=== PATIENT | male | born 1995 | race Caucasian/White ===

== ENCOUNTER 2017-05-06 21:22 | Emergency (ER) | payer MEDICAID ==
[2017-05-06 22:20] VITALS: RESP 20; TEMP 98.6; BMI 21.6
[2017-05-06] MEDS ORDERED: Sodium Chloride 0.9% 1,000 ML IV STA (22:48)
--- NOTE | 2017-05-06 22:48 | ED PDOC ---
Arrival/HPI <Wayne Medel - Last Filed: 05/07/17 00:07> - General Historian: Parent (mother) - History of Present Illness Time/Duration: Prior to Arrival Context: Home <Ivan Gar - Last Filed: 05/13/17 22:35> - General Chief Complaint: Medical Clearance Time Seen by Provider: 05/06/17 22:44 - History of Present Illness Narrative History of Present Illness (Text): 05/06/17 22:45 This 21 yo male presents to this ED came with mother c/o jaw lock x 2 hours. Mother admits that patient takes psychiatric medication. Denies other complains. (Ivan Gar) Past Medical History - Provider Review Nursing Documentation Reviewed: Yes - Past History Past History: No Previous - Infectious Disease Hx of Infectious Diseases: None - Tetanus Immunization Tetanus Immunization: Up to Date - Cardiac Hx Cardiac Disorders: No Hx Hypertension: No - Pulmonary Hx Tuberculosis: No - Neurological HX Cerebrovascular Accident: No Hx Seizures: No - Hematological/Oncological Hx Cancer: No - Genitourinary/Gynecological Hx Sexually Transmitted Diseases: No - Psychiatric Hx Anxiety: Yes Hx Emotional Abuse: No Hx Physical Abuse: No Hx Schizophrenia: Yes Hx Substance Use: Yes - Past Surgical History Past Surgical History: No Previous - Anesthesia Hx Anesthesia: No Hx Anesthesia Reactions: No Hx Malignant Hyperthermia: No - Suicidal Assessment Feels Threatened In Home Enviroment: No <Ivan Gar - Last Filed: 05/13/17 22:35> Family/Social History - Physician Review Nursing Documentation Reviewed: Yes Family/Social History: No Known Family HX Smoking Status: Smoker Currrent Status Unknown Hx Alcohol Use: Yes Hx Substance Use: Yes Substance used: MARIJUANA Hx Substance Use Treatment: No <Ivan Gar - Last Filed: 05/13/17 22:35> Allergies/Home Meds <Wayne Medel - Last Filed: 05/07/17 00:07> <Ivan Gar - Last Filed: 05/13/17 22:35> Allergies/Adverse Reactions: Allergies No Known Allergies Allergy (Verified 05/13/16 21:03) Home Medications: Home Meds Medication Instructions Recorded Confirmed ALPRAZolam [Xanax] 1 mg PO 05/06/17 Review of Systems - Review of Systems Systems not reviewed;Unavailable: Other (Mother provided with information) Constitutional: Normal. absent: Fatigue, Weight Change, Fevers Eyes: Normal ENT: Normal Respiratory: Normal. absent: SOB, Cough Cardiovascular: Normal. absent: Chest Pain Gastrointestinal: Normal. absent: Abdominal Pain, Nausea, Vomiting Genitourinary Male: Normal Musculoskeletal: Other (Muscle of jaw contraction) Skin: Normal Neurological: Normal Endocrine: Normal Hemo/Lymphatic: Normal Psychiatric: Normal <Ivan Gar P - Last Filed: 05/13/17 22:35> Physical Exam Temperature: Afebrile Blood Pressure: Normal Pulse: Regular Respiratory Rate: Normal Appearance: Positive for: Well-Appearing, Non-Toxic, Comfortable Pain Distress: None Mental Status: Positive for: Alert and Oriented X 3 - Systems Exam Head: Present: Atraumatic, Normocephalic Pupils: Present: PERRL Extroacular Muscles: Present: EOMI Conjunctiva: Present: Normal Mouth: Present: Moist Mucous Membranes, Normal Lips, Normal Tounge, Normal Teeth , Other (Jaw muscle contraction). No: Drooling, Trismus Neck: Present: Normal Range of Motion Respiratory/Chest: Present: Clear to Auscultation, Good Air Exchange. No: Respiratory Distress, Accessory Muscle Use Cardiovascular: Present: Regular Rate and Rhythm, Normal S1, S2. No: Murmurs Abdomen: Present: Normal Bowel Sounds. No: Tenderness, Distention, Peritoneal Signs Back: Present: Normal Inspection Upper Extremity: Present: Normal Inspection, Normal ROM, NORMAL PULSES, Capillary Refill < 2s. No: Cyanosis, Edema Lower Extremity: Present: Normal Inspection, NORMAL PULSES, Normal ROM, Neurovascularly Intact, Capillary Refill < 2 s. No: Edema, CALF TENDERNESS Neurological: Present: GCS=15, CN II-XII Intact, Speech Normal Skin: Present: Warm, Dry, Normal Color. No: Rashes Psychiatric: Present: Alert, Oriented x 3, Normal Insight, Normal Concentration <Ivan Gar P - Last Filed: 05/13/17 22:35> Vital Signs Temp Pulse Resp BP Pulse Ox 05/07/17 00:13 98 H 20 127/64 100 05/06/17 22:19 98.6 F 115 H 20 120/55 L 98 05/06/17 22:13 98.6 F 115 H 20 120/55 L 98 Medical Decision Making <Wayne Medel Last Filed: 05/07/17 00:07> Re-evaluation Time: 01:19 Reassessment Condition: Re-examined, Improved - Lab Interpretations I have reviewed the lab results: Yes Interpretation: No clinic. lab abnormalty <Ivan Gar - Last Filed: 05/13/17 22:35> ED Course and Treatment: 05/07/17 01:17 Patient stated symptoms has improved. Re-evaluation. Patient feels better. Discussed results and plan with patient and his mother who expresses understanding. All questions answered and there is agreement with the plan to discharge home with instructions. Patient stable for discharge. Return if symptoms persist or worsen. (Ivan Gar) - Lab Interpretations Lab Results: 05/06/17 23:37 05/06/17 23:37 Lab Results 05/07/17 00:31: Urine Opiates Screen Negative, Urine Methadone Screen Negative, Ur Barbiturates Screen Negative, Ur Phencyclidine Scrn Negative, Ur Amphetamines Screen Negative, U Benzodiazepines Scrn Positive H, U Oth Cocaine Metabols Negative, U Cannabinoids Screen Positive H 05/07/17 00:31: Urine Color Yellow, Urine Appearance Clear, Urine pH 7.0, Ur Specific [place] 1.010, Urine Protein Negative, Urine Glucose (UA) Negative, Urine Ketones Negative, Urine Blood Negative, Urine Nitrate Negative, Urine Bilirubin Negative, Urine Urobilinogen 0.2, Ur Leukocyte Esterase Negative 05/06/17 23:37: Alcohol, Quantitative < 10 05/06/17 23:37: Salicylates < 1 L, Acetaminophen < 10.0 L 05/06/17 23:37: Sodium 137, Potassium 3.9, Chloride 101, Carbon Dioxide 25, Anion Gap 15, BUN 15, Creatinine 1.0, Est GFR ( Amer) > 60, Est GFR (Non- Af Amer) > 60, Random Glucose 101, Calcium 9.8, Total Bilirubin 0.4, AST 39, ALT 26, Alkaline Phosphatase 98, Total Protein 7.5, Albumin 4.5, Globulin 3.0, Albumin/Globulin Ratio 1.5 05/06/17 23:37: WBC 9.6, RBC 4.22, Hgb 13.1 L, Hct 37.9 L, MCV 89.8, MCH 31.0, MCHC 34.6, RDW 13.2, Plt Count 251, MPV 8.7, Gran % 84.3 H, Lymph % (Auto) 10.9 L, [place] % (Auto) 3.8, Eos % (Auto) 0.7 L, Baso % (Auto) 0.3, Gran # 8.06 H, Lymph # 1.0 L, [place] # 0.4, Eos # 0.1, Baso # 0.03 - RAD Interpretation Radiology Orders: 05/06/17 23:04 CHEST PORTABLE [RAD] Stat - Medication Orders Current Medication Orders: Discontinued Medications Diphenhydramine HCl (Benadryl) 50 mg IVP STAT STA Stop: 05/06/17 23:09 Last Admin: 05/06/17 23:39 Dose: 50 mg Sodium Chloride (Sodium Chloride 0.9%) 1,000 mls @ 999 mls/hr IV .Q1H1M STA Stop: 05/06/17 23:48 Last Admin: 05/06/17 23:40 Dose: 999 mls/hr - PA / [employer] / Resident Statement / has reviewed & agrees with the documentation as recorded. <Wayne Medel - Last Filed: 05/07/17 00:07> Disposition/Present on Arrival <Wayne Medel - Last Filed: 05/07/17 00:07> - Present on Arrival Any Indicators Present on Arrival: No History of DVT/PE: No History of Uncontrolled Diabetes: No Urinary Catheter: No History of Decub. Ulcer: No History Surgical Site Infection Following: None - Disposition Have Diagnosis and Disposition been Completed?: Yes Disposition Time: :19 Patient Plan: Discharge <Ivan Gar - Last Filed: 05/13/17 22:35> - Disposition Diagnosis: Acute dystonic reaction due to drugs Disposition: HOME/ ROUTINE Condition: GOOD Additional Instructions: Call private psychiatrist for further evaluation of symptoms. Also call private doctor for revaluation. Returnto emergency if symptoms returns. take medication as instructed Prescriptions: DiphenhydrAMINE [Benadryl] 50 mg PO Q8H PRN #30 cap PRN Reason: Muscle Spasm Referrals: Lou Aranda MD [Primary Care Provider] - Follow up with primary
[2017-05-06] MEDS ORDERED: DiphenhydrAMINE 50 mg/ml Inj IVP STA (23:08)
[2017-05-07 00:01] LABS: BASO # 0.03 K/mm3 (0.0-2.0); BASO % 0.3 % (0.0-3.0); EOS # 0.1 (0.0-0.7); EOS % 0.7 % (1.5-5.0); GRAN # 8.06 (1.4-6.5); GRAN % 84.3 % (50.0-68.0); HEMOGLOBIN 13.1 gm/dL (14.0-18.0); LYMPH % 10.9 % (22.0-35.0); MEAN CELL VOLUME 89.8 fL (80.0-105.0); MEAN CORPUSCULAR HGB CONC 34.6 g/dl (31.0-37.0); MEAN PLATELET VOLUME 8.7 fl (7.0-11.0); MONO # 0.4 (0.1-0.6); MONO % 3.8 % (1.0-6.0); PLATELET COUNT 251 10^3/uL (120.0-450.0); RBC 4.22 10^6/uL (3.5-6.1); RED CELL DISTRIBUTION WIDTH 13.2 % (11.5-14.5); WHITE BLOOD COUNT 9.6 10^3/ul (4.5-11.0)
[2017-05-07 00:08] LABS: SALICYLATE < 1 mg/dL (2.0-20.0)
[2017-05-07 00:15] VITALS: BP 127/64; PULSE 98; O2SAT 100
[2017-05-07 00:21] LABS: ACETAMINOPHEN < 10.0 ug/ml (10.0-20.0); ALB/GLOB RATIO 1.5 (1.1-1.8); ALBUMIN 4.5 g/dL (3.0-4.8); ALT/SGPT 26 U/L (7-56); AST/SGOT 39 U/L (15-59); BLOOD UREA NITROGEN 15 mg/dL (7-21); CALCIUM 9.8 mg/dL (8.4-10.5); GFR AFRICAN-AMERICAN > 60; GFR NON-AFRICAN AMERICAN > 60
[2017-05-07 00:55] LABS: URINE BILIRUBIN NEGATIVE (NEGATIVE); URINE BLOOD NEGATIVE (NEGATIVE); URINE GLUCOSE (UA) NEGATIVE (NEGATIVE); URINE LEUKOCYTE ESTERASE NEGATIVE Leu/uL (NEGATIVE); URINE NITRATE NEGATIVE (NEGATIVE); URINE PROTEIN NEGATIVE mg/dL (<30 mg/dL); URINE UROBILINOGEN 0.2 E.U./dL (<1 E.U./dL)
[2017-05-07 01:02] LABS: URINE APPEARANCE CLEAR (CLEAR); URINE COLOR YELLOW (YELLOW)
[2017-05-07 01:10] LABS: BARBITURATES, UR NEGATIVE (NEGATIVE); BENZODIAZEPINES, UR POSITIVE (NEGATIVE); OPIATES, UR NEGATIVE (NEGATIVE); PHENCYCLIDINE, UR NEGATIVE (NEGATIVE)
--- NOTE | 2017-05-07 07:34 | RAD ---
HISTORY: tachycardia COMPARISON: 05/14/2016 FINDINGS: LUNGS: No active pulmonary disease. PLEURA: No significant pleural effusion identified, no pneumothorax apparent. CARDIOVASCULAR: Normal. OSSEOUS STRUCTURES: No significant abnormalities. VISUALIZED UPPER ABDOMEN: Normal. OTHER FINDINGS: None. IMPRESSION: No active disease.
== END 2017-05-07 01:37 | disposition home or self-care (01) ==
LOC: ED 21:22
DX: G24.02 Drug induced acute dystonia (principal); T50.905A Adverse effect of unspecified drugs, medicaments and biological substances, initial encounter
CPT/HCPCS: 71010; 80053; 80320; 80324; 80329; 80345; 80346; 80349; 80353; 80358; 80361; 81003; 83992; 85025; 96374; 99282; J1200; J7040

== ENCOUNTER 2017-09-05 03:20 | Inpatient (IN) | payer MEDICARE, MEDICAID ==
[2017-09-05 03:26] VITALS: BMI 19.8
--- NOTE | 2017-09-05 03:50 | ED PDOC ---
Arrival/HPI - General Chief Complaint: Alcohol Ingestion Time Seen by Provider: 09/05/17 03:43 - History of Present Illness Narrative History of Present Illness (Text): 22 y/o M brought to ED by [place] [employer] for psychiatric evaluation. Patient states he was drinking today, hanging out when the police arrived and treated him very aggressively, handcuffed him, and brought him here. He states that he thinks someone in his apartment building called the police to snitch on him due to the drinking. He states he drank alcohol and took Xanax today. He denies SI today or HI. He states that taking drugs and being high helps him to avoid feeling suicidal. He states he has been hearing voices for 2 or 3 years that tell him to hurt himself or others. As per [place] [employer], patient was behaving erratically, screaming and then being despondent in cycles. He apparently had been rejected by a neighbor girl and writing satanic verses on that family's door. Denies fever, chest pain, vomiting. Past Medical History - Provider Review Nursing Documentation Reviewed: Yes - Past History Past History: No Previous - Infectious Disease Hx of Infectious Diseases: None - Tetanus Immunization Tetanus Immunization: Up to Date - Cardiac Hx Cardiac Disorders: No Hx Hypertension: No - Pulmonary Hx Respiratory Disorders: No Hx Tuberculosis: No - Neurological HX Cerebrovascular Accident: No Hx Seizures: No - HEENT Hx HEENT Disorder: No - Renal Hx Renal Disorder: No - Endocrine/Metabolic Hx Endocrine Disorders: No - Hematological/Oncological Hx Cancer: No - Musculoskeletal/Rheumatological Hx Musculoskeletal Disorders: No - Gastrointestinal Hx Gastrointestinal Disorders: No - Genitourinary/Gynecological Hx Genitourinary Disorders: No Hx Sexually Transmitted Diseases: No - Psychiatric Hx Anxiety: Yes Hx Emotional Abuse: No Hx Physical Abuse: No Hx Schizophrenia: Yes Hx Substance Use: Yes (xanax) - Past Surgical History Past Surgical History: No Previous - Anesthesia Hx Anesthesia: No Hx Anesthesia Reactions: No Hx Malignant Hyperthermia: No - Suicidal Assessment Feels Threatened In Home Enviroment: No Family/Social History - Physician Review Nursing Documentation Reviewed: Yes Family/Social History: No Known Family HX Smoking Status: Light Smoker < 10 Cigarettes Daily Hx Alcohol Use: Yes Frequency of alcohol use: Socially Hx Substance Use: Yes (xanax) Substance used: MARIJUANA Hx Substance Use Treatment: No Allergies/Home Meds Allergies/Adverse Reactions: Allergies No Known Allergies Allergy (Verified 09/05/17 03:26) Home Medications: Home Meds Medication Instructions Recorded Confirmed ALPRAZolam [Xanax] 1 mg PO BID 05/06/17 09/05/17 Review of Systems - Review of Systems Constitutional: absent: Fevers Cardiovascular: absent: Chest Pain Physical Exam - Physical Exam Narrative Physical Exam (Text): Constitutional: No acute distress. Head: Normocephalic. Atraumatic. Eyes: PERRL. ENT: Moist mucous membranes. Neck: Supple. Cardiovascular: Regular rate. Chest: No tenderness. Respiratory: Clear to auscultation bilaterally. GI: Soft. Nontender. Nondistended. Back: No CVA tenderness. Musculoskeletal: No tenderness or swelling of extremities. Skin: No rash. Neurologic: Alert, no focal deficit. Vital Signs Temp Pulse Resp BP Pulse Ox 09/05/17 03:23 98 F 104 H 16 131/77 100 Medical Decision Making ED Course and Treatment: During history, patient would look off in various directions or touch various parts of his body. At one point, he lifted his gown and lowered his underwear and was touching himself in the groin. Patient with bizarre behavior. Will have evaluated by PES after medical clearance. 09/05/17 04:45 CXR Impression: As read by me, no acute disease. Evaluated by PES, discussed with Dr. Jesus, recommending [facility] screening. Will sign out to ED day team at change of shift pending [facility] screener. - Lab Interpretations Lab Results: 09/05/17 03:42 09/05/17 03:42 Lab Results 09/05/17 04:45: Urine Opiates Screen Negative, Urine Methadone Screen Negative, Ur Barbiturates Screen Negative, Ur Phencyclidine Scrn Negative, Ur Amphetamines Screen Negative, U Benzodiazepines Scrn Positive H, U Oth Cocaine Metabols Negative, U Cannabinoids Screen Positive H 09/05/17 04:45: Urine Color Light yellow, Urine Appearance Clear, Urine pH 6.0, Ur Specific [place] 1.010, Urine Protein Negative, Urine Glucose (UA) Negative, Urine Ketones Negative, Urine Blood Negative, Urine Nitrate Negative, Urine Bilirubin Negative, Urine Urobilinogen 0.2, Ur Leukocyte Esterase Negative 09/05/17 03:42: Alcohol, Quantitative 215 H 09/05/17 03:42: Salicylates < 1 L, Acetaminophen < 10.0 L 09/05/17 03:42: Sodium 148, Potassium 3.7, Chloride 105, Carbon Dioxide 32, Anion Gap 15, BUN 12, Creatinine 1.0, Est GFR ( Amer) > 60, Est GFR (Non- Af Amer) > 60, Random Glucose 103, Calcium 9.9, Total Bilirubin 0.6, AST 33, ALT 35, Alkaline Phosphatase 93, Total Protein 8.3, Albumin 5.0 H, Globulin 3.3 , Albumin/Globulin Ratio 1.5 09/05/17 03:42: WBC 5.7 D, RBC 4.63, Hgb 14.8, Hct 42.4, MCV 91.6, MCH 32.0, MCHC 34.9, RDW 12.9, Plt Count 284, MPV 8.9, Gran % 65.4, Lymph % (Auto) 26.4, [place] % (Auto) 4.8, Eos % (Auto) 2.3, Baso % (Auto) 1.1, Gran # 3.70, Lymph # 1.5 , [place] # 0.3, Eos # 0.1, Baso # 0.06 - RAD Interpretation Radiology Orders: 09/05/17 03:45 CHEST ONE VIEW [RAD] Stat Disposition/Present on Arrival - Present on Arrival Any Indicators Present on Arrival: No History of DVT/PE: No History of Uncontrolled Diabetes: No Urinary Catheter: No History of Decub. Ulcer: No History Surgical Site Infection Following: None - Disposition Have Diagnosis and Disposition been Completed?: No Diagnosis: Alcohol intoxication Disposition Time: 05:29 Condition: STABLE Forms: [employer] (Egyptian)
[2017-09-05 04:33] LABS: ALB/GLOB RATIO 1.5 (1.1-1.8); ALKALINE PHOSPHATASE 93 U/L (38-126); ALT/SGPT 35 U/L (7-56); AST/SGOT 33 U/L (17-59); BILIRUBIN,TOTAL 0.6 mg/dL (0.2-1.3); BLOOD UREA NITROGEN 12 mg/dL (7-21); CALCIUM 9.9 mg/dL (8.4-10.5); CARBON DIOXIDE 32 mmol/L (21-33); CHLORIDE 105 mmol/L (98-107); GFR AFRICAN-AMERICAN > 60; GLUCOSE,RANDOM 103 mg/dL (70-110); POTASSIUM 3.7 mmol/L (3.6-5.0); SODIUM 148 mmol/L (132-148); TOTAL PROTEIN 8.3 g/dL (5.8-8.3)
[2017-09-05 04:47] LABS: BASO % 1.1 % (0.0-3.0); EOS % 2.3 % (1.5-5.0); GRAN % 65.4 % (50.0-68.0); HEMATOCRIT 42.4 % (42.0-52.0); LYMPH % 26.4 % (22.0-35.0); MEAN CELL VOLUME 91.6 fl (80.0-105.0); MEAN CORPUSCULAR HGB CONC 34.9 g/dl (31.0-37.0); MEAN PLATELET VOLUME 8.9 fl (7.0-11.0); MONO % 4.8 % (1.0-6.0); RED CELL DISTRIBUTION WIDTH 12.9 % (11.5-14.5); WHITE BLOOD COUNT 5.7 10^3/ul (4.5-11.0)
[2017-09-05 04:48] LABS: BASO # 0.06 K/mm3 (0.0-2.0); EOS # 0.1 (0.0-0.7); GRAN # 3.7 (1.4-6.5); LYMPH # 1.5 (1.2-3.4); MONO # 0.3 (0.1-0.6)
[2017-09-05 04:57] LABS: URINE BILIRUBIN NEGATIVE (NEGATIVE); URINE BLOOD NEGATIVE (NEGATIVE); URINE GLUCOSE (UA) NEGATIVE (NEGATIVE); URINE KETONE NEGATIVE (NEGATIVE); URINE LEUKOCYTE ESTERASE NEGATIVE Leu/uL (NEGATIVE); URINE PROTEIN NEGATIVE mg/dL (<30 mg/dL); URINE UROBILINOGEN 0.2 E.U./dL (<1 E.U./dL)
[2017-09-05 04:58] LABS: URINE APPEARANCE CLEAR (CLEAR); URINE COLOR LIGHT YELLOW (YELLOW)
--- NOTE | 2017-09-05 08:43 | RAD ---
PROCEDURE: CHEST RADIOGRAPH, 1 VIEW HISTORY: psych COMPARISON: Comparison is made to 05/06/2017 FINDINGS: LUNGS: No evidence of new infiltrate or consolidation in the lungs. PLEURA: No pneumothorax or pleural fluid seen. CARDIOVASCULAR: Normal. OSSEOUS STRUCTURES: No significant abnormalities. VISUALIZED UPPER ABDOMEN: Normal. OTHER FINDINGS: None. IMPRESSION: No active disease.
--- NOTE | 2017-09-05 10:11 | CARD ---
APPROVED REPORT EKG Measurement Heart [id number] <Conclusion> Normal sinus rhythm Normal ECG
--- NOTE | 2017-09-05 15:28 | PCM.BM ---
<Giuseppe Agustin - Last Filed: 09/05/17 15:25> Treatment Plan Problems - Problems identified on initial assessmt altered thought process Date Initiated: 09/05/17 Time Initiated: 15:26 Assessment reference: AMARJIT MOODY high risk for injury Date Initiated: 09/05/17 Time Initiated: 15:27 Assessment reference: AMARJIT MOODY ineffective impulse control Date Initiated: 09/05/17 Time Initiated: 15:27 Assessment reference: AMARJIT MOODY Treatment assets and liabiliti Patient Assests: physically healthy, negotiates basic needs Patient Liabilities: poor support system, relationship conflicts, substance abuse - Milieu Protocol Maintain good personal hygiene: daily Encourage regular showers, daily Remind patient to perform daily oral care, daily Assist patient to perform ADL's Maintain personal safety: daily Educate patient to report safety concerns to staff, daily Monitor environment for contraband/sharps Medication safety: Monitor for expected outcome, potential side effects: daily, Assess barriers to learning: daily, Assess readiness for medication education: daily Discharge/Continuing Care - Education Needs Education Needs: Patient Medication, Patient Diagnosis/Disease Process, Patient Coping Skills, Patient Anger Management skills, Patient Community resources, Patient Activities of Daily Living, Patient Health Practices/Safety, Patient Personal Hygiene/Grooming, Patient Aftercare Safety Plan - Discharge Discharge Criteria: Free of Suicidal thoughts, Free of Homicidal thoughts, Free of paranoid thoughts, Free of agitation, Normal sleep pattern <Nancy Pedersen - Last Filed: 09/07/17 16:06> - Diagnosis (1) Polysubstance abuse Status: Acute Interventions: 09/07/17 16:07 Monitoring withdrawal symptoms Medical detoxification Pharmacotherapy for alcohol/benzos/opioid dependence Maintaining sobriety Relapse prevention Possible rehabilitation Motivational interviewing 12-step programs: AA meetings (2) Schizophrenia Status: Acute Interventions: 09/07/17 16:07 Psychoeducation/psychotherapy Psychopharmacology/adjustment of medications as needed/ monitoring possible side effects Evaluate pt on daily basis Compliance with medications and follow up appointments Long acting medication if pt is noncompliant with pill form Suicide and homicide risk assessment and prevention, coping strategies, safety plan Relapse prevention Reduction of symptoms Improve functional status Possible assertive community treatment Cognitive behavioral therapy Family involvement Possible social skill training as outpatient <Gail Ga Y - Last Filed: 09/07/17 16:33>
[2017-09-05] MEDS ORDERED: Promethazine DM 6.25 mg-15 mg/5 ml Syrup PO PRN (18:18)
[2017-09-06 07:37] LABS: CHOLESTEROL 140 mg/dL (130-200); GLUCOSE,FASTING 94 mg/dL (65-110)
[2017-09-06] MEDS: Multivitamin Therapeutic Tab PO SCH (07:52)
[2017-09-06] MEDS: Fluticasone Nasal 50 mcg/Spray NS SCH (07:52)
[2017-09-06 07:55] LABS: FREE T4 1.14 ng/dL (0.78-2.19)
[2017-09-06 08:08] LABS: THYROID STIMULATING HORMONE 6.13 mIU/mL (0.46-4.68)
--- NOTE | 2017-09-06 10:15 | PCM.PSYCH ---
Initial Psychiatric Evaluation - Initial Psychiatric Evaluation Type of Admission: Voluntary Legal Status: Capacity History of Present Illness and Precipitating Events: Patient is a single 22 year old male with history of depression, anxiety and psychotic symptoms who was brought to the ED by [place] [employer] for psychiatric evaluation. Per ER report, patient stated that he was drinking, hanging out when the police arrived and treated him very aggressively, handcuffed him, and brought him to the ER. He stated that he thinks someone in his apartment building called the police to snitch on him due to the drinking. Per ER report, patient stated that he has been hearing voices for 2 or 3 years that tell him to hurt himself or others. As per [place] [employer], patient was behaving erratically, screaming and then being despondent in cycles. He apparently had been rejected by a neighbor girl and writing satanic verses on that family's door. Nursing notes indicate that patient presented as psychotic and delusional. Patient reported that he wanted to be addressed as "Oliver Hinkle" because he didn't like his current name. His frustration tolerance is poor and patient is prone to tantrums when needs aren't met immediately. I met with patient at bedside this morning. He appears well groomed and oriented to month, location and year. Patient is guarded and minimizes events leading to current presentation on the psychiatric unit. Reports that he drinks excessively, most recently he was drinking two bottles of vodka prior to admission and drinks at least a bottle of wine daily. He reports history of withdrawal seizures as well as DTs in the past. Despite this history patient was still reluctant to admit that he is addicted to alcohol. Patient also smokes marijuana. Patient is unable to describe rational reason for his behaviors prior to admission. Again, he minimizes the symptoms and reports that he is "feeling good". He denies depression or hallucinations. Though he denies paranoia, he appears internally preoccupied and also seems to be responding to internal stimuli (though he does seem to hide it). Patient told nursing about family stressors including his mother "screaming all the time at home". Nursing also noted that patient is preoccupied with a female patient in the unit and attempted to go into female patients room. PSYCHIATRIC HISTORY Patient denies any prior psychiatric hospitalizations. He denies any history of suicide attempts. He reports that he did see a psychiatrist at [facility] in March however does not recall any medications prescribed to him except for Xanax SOCIAL HISTORY Patient was born and raised in [place]. He's single. He has no children. He went up to freshman year of high school and then quit. He's unemployed. He presently drinks a bottle of wine a bottle daily though recently finished two bottles of vodka [place]. Reports history of withdrawal seizures and DTs. Patient smokes a pack of cigarettes a day however defers on nicotine patch when this provider offers it to him. He was counseled about the morbidity and mortality risks of continued tobacco, alcohol and marijuana use. . Current Medications: Active Medications Generic Name Dose Route Start Last Admin Trade Name Freq PRN Reason Stop Dose Admin Fluticasone Propionate 1 actuation 09/06/17 08:00 Flonase NS DAILY LESLIE Folic Acid 1 mg 09/06/17 08:00 Folic Acid PO DAILY LESLIE Lorazepam 1 mg 09/05/17 12:00 09/05/17 17:25 Ativan PO 1 mg Q6 LESLIE Administration Protocol Multivitamins 1 tab 09/06/17 08:00 Thera Tab PO 0800 LESLIE Promethazine HCl/Dextromethorphan 5 ml 09/05/17 18:18 Phenergan Dm Syrup PO Q6H PRN Cough Risperidone 1 mg 09/05/17 22:00 09/05/17 21:42 Risperdal Tab PO 1 mg AMHS LESLIE Administration Protocol Thiamine HCl 100 mg 09/06/17 08:00 Vitamin B1 Tab PO DAILY LESLIE Zaleplon 10 mg 09/05/17 11:33 09/05/17 21:44 Sonata PO 10 mg HS PRN Administration Insomnia Past Psychiatric History - Past Psychiatric History Pertinent Medical Hx (Current Medical&Sleep Prob, Allergies): Allergies Allergy/AdvReac Type Severity Reaction Status Date / Time No Known Allergies Allergy Verified 09/05/17 03:26 ALPRAZolam [Xanax] 1 mg PO BID 05/06/17 Mental Status Examination - Affect Affect: Constricted, Flat - Motor Activity Motor Activity: Calm - Reliability in Providing Information Reliability in Providing Information: Poor, due to alteration in thoughts - Speech Speech: Disorganized - Mood Mood: Neutral - Formal Thought Process Formal Thought Process: Hallucinations (Appears preoccupied and responding to internal stimuli), Paranoia, Loosening of associations - Obsessions/Compulsions Obsessions: No Compulsions: No - Cognitive Functions Orientation: Person, Place Sensorium: Alert Estimate of Intelligence: Below average Judgement: Imparied, as evidence by: Poor judgement, Imparied, as evidence by: Lack of insight into illness - Risk Risk: Diminished functioning DSM 5 DX - DSM 5 DSM 5 Diagnosis: Psychotic Disorder NOS Mood Disorder NOS Alcohol Use Disorder, Severe r/o SIMD r/o SIPD r/o Schizophrenia - Recommended/Plan of Treatment Treatment Recommendations and Plan of Treatment: * grp, milieu and supportive tx * Risperdal 1 mg AM & HS for disorganization, hx of hallucinations and to help with mood control * Ativan 1 mg q6 for alcohol withdrawal and to help with mood control * Sonata 10 mg HS prn: insomnia * Awaiting medical f/u * Vitals reviewed and noted below: Selected Entries 09/05/17 09/05/17 09/06/17 07:15 16:00 07:00 Temperature 97.9 F 97.5 F L Pulse Rate 86 104 H 117 H Respiratory 18 17 Rate Blood Pressure 114/55 L 120/58 L 137/56 L O2 Sat by Pulse 96 Oximetry ER LABS AND STUDIES 09/05/17 04:45: Urine Opiates Screen Negative, Urine Methadone Screen Negative, Ur Barbiturates Screen Negative, Ur Phencyclidine Scrn Negative, Ur Amphetamines Screen Negative, U Benzodiazepines Scrn Positive H, U Oth Cocaine Metabols Negative, U Cannabinoids Screen Positive H 09/05/17 04:45: Urine Color Light yellow, Urine Appearance Clear, Urine pH 6.0, Ur Specific [place] 1.010, Urine Protein Negative, Urine Glucose (UA) Negative, Urine Ketones Negative, Urine Blood Negative, Urine Nitrate Negative, Urine Bilirubin Negative, Urine Urobilinogen 0.2, Ur Leukocyte Esterase Negative 09/05/17 03:42: Alcohol, Quantitative 215 H 09/05/17 03:42: Salicylates < 1 L, Acetaminophen < 10.0 L 09/05/17 03:42: Sodium 148, Potassium 3.7, Chloride 105, Carbon Dioxide 32, Anion Gap 15, BUN 12, Creatinine 1.0, Est GFR ( Amer) > 60, Est GFR (Non- Af Amer) > 60, Random Glucose 103, Calcium 9.9, Total Bilirubin 0.6, AST 33, ALT 35, Alkaline Phosphatase 93, Total Protein 8.3, Albumin 5.0 H, Globulin 3.3 , Albumin/Globulin Ratio 1.5 09/05/17 03:42: WBC 5.7 D, RBC 4.63, Hgb 14.8, Hct 42.4, MCV 91.6, MCH 32.0, MCHC 34.9, RDW 12.9, Plt Count 284, MPV 8.9, Gran % 65.4, Lymph % (Auto) 26.4, [place] % (Auto) 4.8, Eos % (Auto) 2.3, Baso % (Auto) 1.1, Gran # 3.70, Lymph # 1.5 , [place] # 0.3, Eos # 0.1, Baso # 0.06 09/05/17 04:45 CXR Impression: As read by me, no acute disease. FLOOR LABS 09/06/17 09/06/17 07:00 07:00 Fasting Glucose 94 Triglycerides 34 L Cholesterol 140 LDL Cholesterol Direct 40 HDL Cholesterol 93 H Free T4 1.14 TSH 3rd Generation 6.13 H - Smoking Cessation Smoking Cessation Initiated: No
[2017-09-07] MEDS: Levothyroxine 25 MCG TAB PO SCH (06:19)
[2017-09-07 06:56] VITALS: RESP 20
--- NOTE | 2017-09-07 07:49 | CON ---
DATE: 09/05/2017 HISTORY OF PRESENT ILLNESS: The patient is a 22-year-old male came into the hospital, to psych floor because of schizophrenia. The patient was admitted under Dr. Rojas and consultation was ordered due to his coughing problem and needed further evaluation. The patient has been coughing for the last few days - 3 to 4 days. There is no fever, no chills, no nausea, no vomiting, no shortness of breath, no wheezing. The patient denied any history of underlying lung disease. The patient has been using substances, Xanax, marijuana and also has been using tranquilizers as an outpatient. He does use alcohol and he smokes less than 10 cigarettes a day. FAMILY HISTORY: Noncontributory. SOCIAL HISTORY: As above. Smokes and uses drugs. REVIEW OF SYSTEMS: Negative except for disordered thoughts. PHYSICAL EXAMINATION GENERAL: The patient is alert, awake, and oriented. He is comfortable. No abnormal behavior. He seems responding well to the questions. He is not in any distress. VITAL SIGNS: Temperature 97.9, heart rate 88, blood pressure 130/73, respirations 18, saturating 100%. HEAD AND NECK: Normal. No JVD. No thyromegaly. CHEST: Clear. Good air entry. CARDIAC: First sound and second sound normal. ABDOMEN: Soft, nontender. EXTREMITIES: No edema. NEUROLOGIC: Normal. LABORATORY DATA: White count 5.7, hemoglobin 14.8, hematocrit 42.4, platelet is 284. Chemistry moore; sodium 148, potassium 3.7, chloride 105, bicarb 32, BUN 12, creatinine 1. Liver function test is normal. The patient also has alcohol in his urine drug screen and marijuana and benzos. Also, the patient had urinalysis, which is normal. IMPRESSION AND PLAN: 1. This is a 22-year-old male who came in with schizophrenia, admitted to psych floor for further evaluation and treatment. The patient was given Risperdal 1 mg p.o. a.m. and at bedtime. He was given Ativan 1 mg every 6 hours, Sonata 10 mg at night. He seems comfortable with that and we will follow up on that. 2. History of smoking, history of drinking. We will give him nicotine patch. Continue thiamine. Continue Ativan. Follow up clinically. 3. Acute bronchitis, looks viral. We will give him promethazine DM and Flonase nasal spray for runny nose. The patient's chest x-ray reported no active pulmonary disease, and we will continue current therapy. We will monitor labs in the morning. We will follow up clinically. Sincere Dunlap MD
[2017-09-07] MEDS: Fluticasone Nasal 50 mcg/Spray NS SCH (09:12)
[2017-09-07] MEDS: Multivitamin Therapeutic Tab PO SCH (09:13)
[2017-09-07] MEDS ORDERED: DiphenhydrAMINE 50 mg/ml Inj IM PRN (11:36)
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
[2017-09-08 06:52] VITALS: O2SAT 97
[2017-09-08] MEDS: Levothyroxine 25 MCG TAB PO SCH (08:58)
[2017-09-08] MEDS: Multivitamin With Minerals Tab PO SCH (08:58)
[2017-09-08] MEDS: Multivitamin Therapeutic Tab PO SCH (08:58)
[2017-09-08] MEDS: Fluticasone Nasal 50 mcg/Spray NS SCH (09:03)
--- NOTE | 2017-09-08 14:32 | PN ---
DATE: 09/07/2017 SUBJECTIVE: The patient seems doing okay. He feels comfortable. No distress. He was playing exercise in his room. Otherwise, he seems stable. Does not feel depressed. He is walking straight of his physical fitness. No other distress. PHYSICAL EXAMINATION: VITAL SIGNS: Temperature 98, heart rate 90, blood pressure 113/59, respirations 20, saturation 98%. HEAD AND NECK: Normal. No JVD. No thyromegaly. CHEST: Clear. CARDIAC: Normal. First sound and second sound normal. No murmur, rub, or gallop. ABDOMEN: Soft, nontender. EXTREMITIES: No edema. NEUROLOGIC: Normal. IMPRESSION AND PLAN: 1. A 22-year-old male with history of depression and anxiety, psychotic symptoms as per psychiatrist. Seems comfortable here, calm, no aggression. Plan is to continue Risperdal, continue Ativan, and we will follow up clinically. 2. The patient also has acute bronchitis. Given Flonase, promethazine DM. Seems comfortable. 3. Hypothyroidism. Continue Synthroid 25 mcg. CURRENT MEDICATIONS: Ativan 2 mg IM every 6 hours p.r.n. for agitation, Benadryl 50 mg q.6., Flonase nasal spray, folic acid, Haldol was given 5 mg IM q.6 hours p.r.n., also Risperdal oral solution 1 mg p.o. a.m. and at bedtime and 1 mg p.o. at 4:00. The patient is also getting Sonata 10 mg at bedtime, levothyroxine 25 mcg, multivitamins 1 pill a day, and vitamin B1 100 mg p.o. daily. We will continue current treatment. The patient is advised about quitting smoking. He feels okay now. His drinking behavior also addressed to him and he will be managed as outpatient. Continue current therapy. Follow up clinically. Sincere Dunlap MD
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
[2017-09-09] MEDS: Levothyroxine 25 MCG TAB PO SCH (08:59)
[2017-09-09] MEDS: Fluticasone Nasal 50 mcg/Spray NS SCH (08:59)
[2017-09-09] MEDS: Multivitamin With Minerals Tab PO SCH (08:59)
--- NOTE | 2017-09-09 15:01 | PCM.PYCHPN ---
Psychiatric Progress Note - Psychiatric Progress Note Patient seen today, length of contact: 30 minutes Patient Chief Complaint: "I learned not to fight with police, I learned I need to take medications, I learned not to use drugs". Medical Problems: patient reported being healthy Patient was seen by Dr. Dunlap Diagnostic Results: 09/05/17 03:42 09/05/17 03:42 Lab Results 09/07/17 07:39: TSH 3rd Generation 3.37 09/06/17 07:00: Free T4 1.14, TSH 3rd Generation 6.13 H 09/06/17 07:00: Fasting Glucose 94, Triglycerides 34 L, Cholesterol 140, LDL Cholesterol Direct 40, HDL Cholesterol 93 H 09/05/17 04:45: Urine Opiates Screen Negative, Urine Methadone Screen Negative, Ur Barbiturates Screen Negative, Ur Phencyclidine Scrn Negative, Ur Amphetamines Screen Negative, U Benzodiazepines Scrn Positive H, U Oth Cocaine Metabols Negative, U Cannabinoids Screen Positive H 09/05/17 04:45: Urine Color Light yellow, Urine Appearance Clear, Urine pH 6.0, Ur Specific [place] 1.010, Urine Protein Negative, Urine Glucose (UA) Negative, Urine Ketones Negative, Urine Blood Negative, Urine Nitrate Negative, Urine Bilirubin Negative, Urine Urobilinogen 0.2, Ur Leukocyte Esterase Negative 09/05/17 03:42: Alcohol, Quantitative 215 H 09/05/17 03:42: Salicylates < 1 L, Acetaminophen < 10.0 L 09/05/17 03:42: Sodium 148, Potassium 3.7, Chloride 105, Carbon Dioxide 32, Anion Gap 15, BUN 12, Creatinine 1.0, Est GFR ( Amer) > 60, Est GFR (Non- Af Amer) > 60, Random Glucose 103, Calcium 9.9, Total Bilirubin 0.6, AST 33, ALT 35, Alkaline Phosphatase 93, Total Protein 8.3, Albumin 5.0 H, Globulin 3.3 , Albumin/Globulin Ratio 1.5 09/05/17 03:42: WBC 5.7 D, RBC 4.63, Hgb 14.8, Hct 42.4, MCV 91.6, MCH 32.0, MCHC 34.9, RDW 12.9, Plt Count 284, MPV 8.9, Gran % 65.4, Lymph % (Auto) 26.4, [place] % (Auto) 4.8, Eos % (Auto) 2.3, Baso % (Auto) 1.1, Gran # 3.70, Lymph # 1.5 , [place] # 0.3, Eos # 0.1, Baso # 0.06 Vital Signs Temp Pulse Resp BP Pulse Ox 09/07/17 06:54 98.0 F 90 20 113/59 L 98 09/06/17 16:00 125 H 129/65 09/06/17 07:00 97.5 F L 117 H 17 137/56 L 09/05/17 16:00 104 H 120/58 L 09/05/17 07:15 97.9 F 86 18 114/55 L 96 09/05/17 06:07 88 18 130/73 100 09/05/17 03:23 98 F 104 H 16 131/77 100 Temp Pulse Resp BP Pulse Ox 97.8 F 83 20 123/74 97 09/08/17 06:51 09/08/17 06:51 09/08/17 06:51 09/08/17 06:51 09/08/17 06:51 DSM 5 Symptoms Update: Patient is a single 22 year old male with history of depression, anxiety and psychotic symptoms who was brought to the ED by [place] [employer] for psychiatric evaluation. Per ER report, patient stated that he was drinking, hanging out when the police arrived and treated him very aggressively, handcuffed him, and brought him to the ER. He stated that he thinks someone in his apartment building called the police to snitch on him due to the drinking. Per ER report, patient stated that he has been hearing voices for 2 or 3 years that tell him to hurt himself or others. As per [place] [employer], patient was behaving erratically, screaming and then being despondent in cycles. He apparently had been rejected by a neighbor girl and writing satanic verses on that family's door. patient was tx team meeting, pt still presented to be psychotic, but with some improvements. Pt said "I learned not to fight with police, I learned I need to take medications, I learned not to use drugs". as per mother "he is doing better", mother asked to d/c pt tomorrow, will eval pt at am. Mental status examination: Patient presented to be alert, oriented, acceptable personal hygiene, with good ADLs, mood described as "I am okay", affect was labile, mood incongruent, thought process was concrete, speech was minimal, better organized, thought content: Patient denied v/a/t hallucinations, but guarded, no agitation or aggression, patient denied thoughts of harming himself or others, denied intent or plan, insight and judgment are limited, but improving, impulses are well controlled. impression: Rule out schizophrenia Polysubstance abuse and dependence Plan: Treatment plan: Milieu/structure/supportive therapy Medical consult appreciated, see medical team note for more detailed info consultation for discharge plan and social issues Med management Ativan 1 mg 3 times a day scheduled for alcohol withdrawals Multivitamins, folic acid, thiamine Risperdal liquid 2mg two times a day Cogentin for EPS prevention was offered Risperdal consta, wants to think about it When necessary medications Family involvement Follow up on labs Will monitor closely evaluation for d/c planning Pt was educated about risk/benefits and alternatives of medications, coping strategies (safety plan, suicide prevention), relapse prevention, importance of follow up with psychiatrist and therapist, stay away from drugs/alcohol/smoking Medication Change: Yes (risperdal increased, cogentin started) Medication Change: Yes (risperdal increased, cogentin started) Medical Record Reviewed: Yes Mental Status Examination - Cognitive Function Orientation: Person, Place - Mood Mood: Neutral - Affect Affect: Constricted, Flat - Formal Thought Process Formal Thought Process: Hallucinations (Appears preoccupied and responding to internal stimuli), Paranoia, Loosening of associations - Homicidal Ideation Homicidal Ideation: No Goal/Treatment Plan - Goal/Treatment Plan Need for Continued Stay: Remain at risks for inpatient hospitalization, Severe depression anxiety, Discharge may exacerbated symptoms, Severe functional impairment Estimated Date of D/C: 09/10/17
[2017-09-10 06:46] VITALS: BP 119/59; PULSE 65; TEMP 97.9
[2017-09-10] MEDS: Levothyroxine 25 MCG TAB PO SCH (08:12)
[2017-09-10] MEDS: Multivitamin With Minerals Tab PO SCH (08:13)
--- NOTE | 2017-09-10 10:08 | PCM.PYCHDC ---
Mental Status Examination - Mental Status Examination Orientation: Person, Place, Situation, Time Memory: Intact Mood: Neutral Affect: Constricted (but reactive, mood congruent) Speech: Appropriate Attention: WNL Concentration: WNL Association: WNL Fund of Knowledge: WNL Formal Thought Process: No Impairment Description of patient's judgement and insight: Pt has improved insight into mental and medical illness, pt was compliant with medications and unit rules and regulations, pt was going to groups, was calm, cooperative, socially appropriate, no behavioral incidents, no agitation, no aggression. Psychotic Thoughts and Behaviors: Pt denied v/a/t hallucinations, denied paranoid ideations, pt does not appear to be psychotic, and thought process is goal directed. Suicidal Ideation: No Current Homicidal Ideation?: No Plan: pt adamantly denied thoughts of harming self or others denied intent or plan. Discharge Summary - Discharge Note Reason for Hospitalization: disorganized thoughts and behavior see initial assessment for more detailed information Psychiatric History (includes Medical, Family, Personal Hx): pt has h/o mental illness, but it was his first admission to psych Laboratory Data: 09/05/17 03:42 09/05/17 03:42 Lab Results 09/07/17 07:39: Thyroperoxidase Ab <1, Thyroglobulin Antibody <1 09/07/17 07:39: TSH 3rd Generation 3.37 09/06/17 07:00: RPR Nonreactive 09/06/17 07:00: Free T4 1.14, TSH 3rd Generation 6.13 H 09/06/17 07:00: Fasting Glucose 94, Triglycerides 34 L, Cholesterol 140, LDL Cholesterol Direct 40, HDL Cholesterol 93 H 09/05/17 04:45: Urine Opiates Screen Negative, Urine Methadone Screen Negative, Ur Barbiturates Screen Negative, Ur Phencyclidine Scrn Negative, Ur Amphetamines Screen Negative, U Benzodiazepines Scrn Positive H, U Oth Cocaine Metabols Negative, U Cannabinoids Screen Positive H 09/05/17 04:45: Urine Color Light yellow, Urine Appearance Clear, Urine pH 6.0, Ur Specific [place] 1.010, Urine Protein Negative, Urine Glucose (UA) Negative, Urine Ketones Negative, Urine Blood Negative, Urine Nitrate Negative, Urine Bilirubin Negative, Urine Urobilinogen 0.2, Ur Leukocyte Esterase Negative 09/05/17 03:42: Alcohol, Quantitative 215 H 09/05/17 03:42: Salicylates < 1 L, Acetaminophen < 10.0 L 09/05/17 03:42: Sodium 148, Potassium 3.7, Chloride 105, Carbon Dioxide 32, Anion Gap 15, BUN 12, Creatinine 1.0, Est GFR ( Amer) > 60, Est GFR (Non- Af Amer) > 60, Random Glucose 103, Calcium 9.9, Total Bilirubin 0.6, AST 33, ALT 35, Alkaline Phosphatase 93, Total Protein 8.3, Albumin 5.0 H, Globulin 3.3 , Albumin/Globulin Ratio 1.5 09/05/17 03:42: WBC 5.7 D, RBC 4.63, Hgb 14.8, Hct 42.4, MCV 91.6, MCH 32.0, MCHC 34.9, RDW 12.9, Plt Count 284, MPV 8.9, Gran % 65.4, Lymph % (Auto) 26.4, [place] % (Auto) 4.8, Eos % (Auto) 2.3, Baso % (Auto) 1.1, Gran # 3.70, Lymph # 1.5 , [place] # 0.3, Eos # 0.1, Baso # 0.06 Vital Signs Temp Pulse Resp BP Pulse Ox 09/10/17 06:46 97.9 F 65 20 119/59 L 09/09/17 16:00 97 H 94/58 L 09/08/17 16:00 101 H 121/66 09/08/17 06:51 97.8 F 83 20 123/74 97 09/07/17 15:00 97.7 F 125/66 09/07/17 06:54 98.0 F 90 20 113/59 L 98 09/06/17 16:00 125 H 129/65 09/06/17 07:00 97.5 F L 117 H 17 137/56 L 09/05/17 16:00 104 H 120/58 L 09/05/17 07:15 97.9 F 86 18 114/55 L 96 09/05/17 06:07 88 18 130/73 100 09/05/17 03:23 98 F 104 H 16 131/77 100 Consultations:: List each consultation separately and include: 1. Reason for request. 2. Findings. 3. Follow-up Consultations: medical consult appreciated please see notes for more detailed information Summary of Hospital Course include:: 1. Description of specific treatment plan utilized for patients during their course of treatmen. 2. Summarize the time- course for resolution of acute symptoms and/or regressed behaviors. 3. Describe issues identified and worked on during hospitalization. 4. Describe medication utilized. 5. Describe medical problems identified and treated. 6. Reassessment of suicide risk Summary of Hospital Course: Patient is a single 22 year old male with history of depression, anxiety and psychotic symptoms who was brought to the ED by [place] [employer] for psychiatric evaluation. Per ER report, patient stated that he was drinking, hanging out when the police arrived and treated him very aggressively, handcuffed him, and brought him to the ER. He stated that he thinks someone in his apartment building called the police to snitch on him due to the drinking. Per ER report, patient stated that he has been hearing voices for 2 or 3 years that tell him to hurt himself or others. As per [place] [employer], patient was behaving erratically, screaming and then being despondent in cycles. He apparently had been rejected by a neighbor girl and writing satanic verses on that family's door. Nursing notes indicate that patient presented as psychotic and delusional. Patient reported that he wanted to be addressed as "Oliver Hinkle" because he didn't like his current name. His frustration tolerance is poor and patient is prone to tantrums when needs aren't met immediately. at the time of initial evaluation pt was disorganized, poor insight into his mental illness, pt was internally preoccupied, appeared responding to internal stimuli. Nursing also noted that patient is preoccupied with a female patient in the unit and attempted to go into female patients room. PSYCHIATRIC HISTORY Patient denies any prior psychiatric hospitalizations. He denies any history of suicide attempts. He reports that he did see a psychiatrist at [facility] in March however does not recall any medications prescribed to him except for Xanax Over the course of this hospitalization pt was stabilized on the following medications: Ativan was weaned off Multivitamins, folic acid, thiamine Risperdal 2mg two times a day for psychosis Cogentin 1mg po two times a day for EPS prevention Sonata 10mg po hs for insomnia this typewriter operator automatic called pt's mother, as per mother pt was dx with "schizophrenic tendencies", as per mother pt never been aggressive, never verbalized thoughts of harming self or others, pt's mother was willing to accept pt back. Over the course of this hospitalization pt was attending groups, pt also had medication management, had therapeutic milieu. Overall pt improved significantly, pt's affect became brighter, pt was less depressed, has realistic future oriented plans "I want to finish my GED", pt has some residual psychotic symptoms, but much better, denied being anxious, pt was socially appropriate, no behavioral issues, pts insight improved as well and soon pt deemed to be ready for discharge. At the time of the discharge pt denied been depressed, denied thoughts of harming self or others, denied psychotic symptoms, and pt does not appeared to be psychotic, denied been anxious, pt is not in imminent danger to self or others, will be following up at Dr.Paul Stoner, information about follow up appointment, time and address provided to the pt, it is patient responsibility to follow up with outpatient clinic, PMD as well as specialists (see note for more detailed information). In case pt will need to obtain results of studies pending at discharge pt was provided with contact information of Psychiatric Inpatient unit [phone] as well as Medical Record Department [phone]. Nicotine patch was offered, but pt does not want to have a nicotine patch Naltrexone treatment was offered but pt does not want to take it because "I don' t have problems with alcohol" Counseling about smoking and alcohol cessation provided this typewriter operator automatic offered pt Lainey cowan, but pt as well as pt's mother feel "it is not a good idea". AA meetings as well as smoking cessation treatment program information was provided by the pt was provided with prescriptions for all of medications (please see medication reconciliation form) Pt was educated about safety plan in case of worsening of symptoms or in case of suicidal or homicidal ideation call 911 or go to the nearest ER, also was educated to take meds as prescribed and stay away from drugs, pt verbalized understanding. - Diagnosis (1) Polysubstance abuse Current Visit: Yes Status: Acute Priority: Medium (2) Schizophrenia Current Visit: Yes Status: Chronic Priority: Medium - Final Diagnosis (DSM 5) Condition upon Discharge: STABLE Disposition: HOME/ ROUTINE Follow-up Treatment Plan: At the time of the discharge pt denied been depressed, denied thoughts of harming self or others, denied psychotic symptoms, and pt does not appeared to be psychotic, denied been anxious, pt is not in imminent danger to self or others, will be following up at Dr.Paul Stoner, information about follow up appointment, time and address provided to the pt, it is patient responsibility to follow up with outpatient clinic, PMD as well as specialists (see note for more detailed information). In case pt will need to obtain results of studies pending at discharge pt was provided with contact information of Psychiatric Inpatient unit [phone] as well as Medical Record Department [phone]. Nicotine patch was offered, but pt does not want to have a nicotine patch Naltrexone treatment was offered but pt does not want to take it because "I don' t have problems with alcohol" Counseling about smoking and alcohol cessation provided this typewriter operator automatic offered pt Lainey riosa, but pt as well as pt's mother feel "it is not a good idea". AA meetings as well as smoking cessation treatment program information was provided by the pt was provided with prescriptions for all of medications (please see medication reconciliation form) Pt was educated about safety plan in case of worsening of symptoms or in case of suicidal or homicidal ideation call 911 or go to the nearest ER, also was educated to take meds as prescribed and stay away from drugs, pt verbalized understanding. Prescriptions/Medication Reconciliation: Benztropine [Cogentin] 1 mg PO AMHS #30 tab Fluticasone Nasal [Flonase] 1 actuation NS DAILY #1 spr Levothyroxine [Synthroid] 25 mcg PO 0600 #7 tab Multimineral/Multivitamin [Therapeutic-M Tab] 1 tab PO 0800 #14 tab risperiDONE [RisperDAL] 2 mg PO AMHS #30 tab Zaleplon [Sonata] 10 mg PO HS #14 capsule - Smoking Cessation Smoking Cessation Medication prescribed: No Reason for not providing: pt does not want to have nicotine patch - Antipsychotic Medications Pt discharged on 2 or more routine antipsychotic medications: No
== END 2017-09-10 11:32 | disposition home or self-care (01) | DRG 885 ==
LOC: ED 03:20 → ERH 07:58 → PSYC 08:33
PROVIDERS: ADMIT Psychologist; ATTEND Psychiatry & Neurology Psychiatry
DX: F20.9 Schizophrenia, unspecified (principal); F10.129 Alcohol abuse with intoxication, unspecified; J20.8 Acute bronchitis due to other specified organisms; F32.9 Major depressive disorder, single episode, unspecified; F41.9 Anxiety disorder, unspecified; E03.9 Hypothyroidism, unspecified; F17.210 Nicotine dependence, cigarettes, uncomplicated; Y90.7 Blood alcohol level of 200-239 mg/100 ml

== ENCOUNTER 2018-05-23 23:59 | Emergency (ER) | payer MEDICAID, MEDICARE ==
[2018-05-23 23:59] VITALS: BMI 19.8
[2018-05-24 00:30] VITALS: RESP 17
--- NOTE | 2018-05-24 00:36 | ED PDOC ---
Arrival/HPI - General Chief Complaint: Psychiatric Evaluation Time Seen by Provider: 05/24/18 00:01 Historian: Patient - History of Present Illness Narrative History of Present Illness (Text): 05/24/18 00:30 Edilson Rogers is a 22 year old male, whose past medical history includes schizophrenia and bipolar disorder, who presents to the Emergency department brought in by mother for auditory hallucinations. Patient states he has been hearing voices telling him, "you sold your soul to the devil." Mother states patient is compliant with his psychiatric medication but is still hearing multiple voices. Mother also notes patient has been feeling depressed, but patient denies suicidal ideation or homicidal ideation. Patient denies any fever , chills, chest pain, shortness of breath, nausea, vomiting, diarrhea, urinary symptoms, headache, dizziness, or any other complaints. Symptom Onset: Gradual Symptom Course: Unchanged Activities at Onset: Light Context: Home Past Medical History - Provider Review Nursing Documentation Reviewed: Yes - Past History Past History: No Previous - Infectious Disease Hx of Infectious Diseases: None - Tetanus Immunization Tetanus Immunization: Up to Date - Cardiac Hx Cardiac Disorders: No - Pulmonary Hx Respiratory Disorders: No - Neurological Hx Neurological Disorder: No - HEENT Hx HEENT Disorder: No - Renal Hx Renal Disorder: No - Endocrine/Metabolic Hx Endocrine Disorders: No - Hematological/Oncological Hx Blood Disorders: No - Integumentary Hx Dermatological Disorder: No - Musculoskeletal/Rheumatological Hx Musculoskeletal Disorders: No - Gastrointestinal Hx Gastrointestinal Disorders: No - Genitourinary/Gynecological Hx Genitourinary Disorders: No - Psychiatric Hx Psychophysiologic Disorder: Yes Hx Bipolar Disorder: Yes Hx Substance Use: Yes - Past Surgical History Past Surgical History: No Previous - Anesthesia Hx Anesthesia: No Hx Anesthesia Reactions: No Hx Malignant Hyperthermia: No - Suicidal Assessment Feels Threatened In Home Enviroment: No Family/Social History - Physician Review Nursing Documentation Reviewed: Yes Family/Social History: Unknown Family HX Smoking Status: Smoker Currrent Status Unknown Hx Alcohol Use: Yes Hx Substance Use: Yes Substance used: MARIJUANA Hx Substance Use Treatment: No Allergies/Home Meds Allergies/Adverse Reactions: Allergies No Known Allergies Allergy (Verified 09/05/17 03:26) Review of Systems - Physician Review All systems were reviewed & negative as marked: Yes - Review of Systems Constitutional: Normal. absent: Fevers Eyes: Normal ENT: Normal Respiratory: Normal. absent: SOB, Cough Cardiovascular: Normal. absent: Chest Pain Gastrointestinal: Normal. absent: Abdominal Pain, Diarrhea, Nausea, Vomiting Genitourinary Male: Normal. absent: Dysuria, Frequency, Hematuria, Urinary Output Changes Musculoskeletal: Normal. absent: Back Pain, Neck Pain Skin: Normal. absent: Rash Neurological: Normal. absent: Headache, Dizziness Endocrine: Normal Hemo/Lymphatic: Normal Psychiatric: Depression, Other (+auditory hallucinations) Physical Exam Vital Signs Reviewed: Yes Vital Signs Temp Pulse Resp BP Pulse Ox 05/24/18 00:29 97.4 F L 75 17 127/78 100 Temperature: Afebrile Blood Pressure: Normal Pulse: Regular Respiratory Rate: Normal Appearance: Positive for: Well-Appearing, Non-Toxic, Comfortable Pain Distress: None Mental Status: Positive for: Alert and Oriented X 3 - Systems Exam Head: Present: Atraumatic, Normocephalic Pupils: Present: PERRL Extroacular Muscles: Present: EOMI Conjunctiva: Present: Normal Mouth: Present: Moist Mucous Membranes Neck: Present: Normal Range of Motion. No: Meningeal Signs, MIDLINE TENDERNESS , Paraspinal Tenderness Respiratory/Chest: Present: Clear to Auscultation, Good Air Exchange. No: Respiratory Distress, Accessory Muscle Use Cardiovascular: Present: Regular Rate and Rhythm, Normal S1, S2. No: Murmurs Abdomen: No: Tenderness, Distention, Peritoneal Signs Back: Present: Normal Inspection. No: CVA Tenderness, Midline Tenderness, Paraspinal Tenderness Upper Extremity: Present: Normal Inspection. No: Cyanosis, Edema Lower Extremity: Present: Normal Inspection. No: Edema Neurological: Present: GCS=15, CN II-XII Intact, Speech Normal Skin: Present: Warm, Dry, Normal Color. No: Rashes Psychiatric: Present: Alert, Oriented x 3, Normal Insight, Normal Concentration Medical Decision Making ED Course and Treatment: 05/24/18 00:31 Impression: 22 year old male complaining of auditory hallucinations and depression. Plan: -- EKG -- Chest X-ray -- Labs, alcohol level -- Urine drug screen -- Reassess and disposition Prior Visits: Notes and results from previous visits were reviewed. Progress Notes: Reviewed EKG, NSR at [address]-segment elevations or depressions, no T-wave inversions, normal intervals. 05/24/18 02:48 Chest X-ray reviewed, showed no acute processes. 05/24/18 05:14 Pt seen and evaluated by ALBINA Henson, who discussed case with psychiatrist second cutter. Dr. Ford. Pt psychiatrically cleared for discharge with his psychiatrist, Dr. Stoner. Pt and familt agreeable with plan. - Lab Interpretations Lab Results: 05/24/18 00:51 05/24/18 00:51 Lab Results 05/24/18 00:51: Alcohol, Quantitative < 10 05/24/18 00:51: WBC 6.2, RBC 4.32, Hgb 13.3 L, Hct 37.9 L, MCV 87.7 D, MCH 30.8 , MCHC 35.1, RDW 12.8, Plt Count 269, MPV 9.0 05/24/18 00:51: Sodium 140, Potassium 3.6, Chloride 103, Carbon Dioxide 22, Anion Gap 18, BUN 14, Creatinine 0.8, Est GFR ( Amer) > 60, Est GFR (Non- Af Amer) > 60, Random Glucose 88, Calcium 9.7, Total Bilirubin 0.7, AST 22, ALT 16, Alkaline Phosphatase 91, Total Protein 7.7, Albumin 4.6, Globulin 3.1, Albumin/Globulin Ratio 1.5 05/24/18 00:50: Urine Opiates Screen Negative, Urine Methadone Screen Negative, Ur Barbiturates Screen Negative, Ur Phencyclidine Scrn Negative, Ur Amphetamines Screen Negative, U Benzodiazepines Scrn Negative, U Oth Cocaine Metabols Negative, U Cannabinoids Screen Positive H I have reviewed the lab results: Yes - RAD Interpretation Radiology Orders: 05/24/18 00:33 CHEST PORTABLE [RAD] Stat Fruit Coordinator: ED Physician - EKG Interpretation Interpreted by ED Physician: Yes Type: 12 lead EKG - Scribe Statement The provider has reviewed the documentation as recorded by the Usha Conner Provider Scribe Attestation: All medical record entries made by the Amarilisibdougie were at my direction and personally dictated by me. I have reviewed the chart and agree that the record accurately reflects my personal performance of the history, physical exam, medical decision making, and the department course for this patient. I have also personally directed, reviewed, and agree with the discharge instructions and disposition. Disposition/Present on Arrival - Present on Arrival Any Indicators Present on Arrival: No History of DVT/PE: No History of Uncontrolled Diabetes: No Urinary Catheter: No History of Decub. Ulcer: No History Surgical Site Infection Following: None - Disposition Have Diagnosis and Disposition been Completed?: Yes Diagnosis: Schizophrenia Disposition: HOME/ ROUTINE Disposition Time: 05:17 Patient Plan: Discharge Condition: GOOD Discharge Instructions (ExitCare): Schizophrenia (DC) Additional Instructions: Follow up with your doctor as instructed Forms: [facility] (Polish)
[2018-05-24 01:06] LABS: HEMOGLOBIN 13.3 g/dL (14.0-18.0); MEAN CELL VOLUME 87.7 fl (80.0-105.0); MEAN CORPUSCULAR HEMOGLOBIN 30.8 pg (25.0-35.0); MEAN CORPUSCULAR HGB CONC 35.1 g/dl (31.0-37.0); RBC 4.32 10^6/uL (3.5-6.1); RED CELL DISTRIBUTION WIDTH 12.8 % (11.5-14.5); WHITE BLOOD COUNT 6.2 10^3/ul (4.5-11.0)
[2018-05-24 01:16] LABS: ALB/GLOB RATIO 1.5 (1.1-1.8); ALBUMIN 4.6 g/dL (3.0-4.8); ALT/SGPT 16 U/L (7-56); AST/SGOT 22 U/L (17-59); BLOOD UREA NITROGEN 14 mg/dL (7-21); CALCIUM 9.7 mg/dL (8.4-10.5); GFR AFRICAN-AMERICAN > 60; GFR NON-AFRICAN AMERICAN > 60
[2018-05-24 01:42] LABS: BARBITURATES, UR NEGATIVE (NEGATIVE); BENZODIAZEPINES, UR NEGATIVE (NEGATIVE); OPIATES, UR NEGATIVE (NEGATIVE); PHENCYCLIDINE, UR NEGATIVE (NEGATIVE)
[2018-05-24 05:35] VITALS: BP 124/72; PULSE 82; TEMP 98.2; O2SAT 98
--- NOTE | 2018-05-24 08:35 | RAD ---
Date of service: 05/24/2018 HISTORY: medical clearance COMPARISON: No prior. FINDINGS: LUNGS: No active pulmonary disease. PLEURA: No significant pleural effusion identified, no pneumothorax apparent. CARDIOVASCULAR: Normal. OSSEOUS STRUCTURES: No significant abnormalities. VISUALIZED UPPER ABDOMEN: Normal. OTHER FINDINGS: None. IMPRESSION: No active disease.
--- NOTE | 2018-05-24 11:12 | CARD ---
APPROVED REPORT Date of service: 05/24/2018 EKG Measurement Heart [id number] <Conclusion> Normal sinus rhythm Normal ECG
== END 2018-05-24 05:35 | disposition home or self-care (01) ==
LOC: ED 23:59
DX: F20.9 Schizophrenia, unspecified (principal)
CPT/HCPCS: 71045; 80053; 85027; 90791; 93005; 99283; G0480

== ENCOUNTER 2018-06-18 12:23 | Inpatient (IN) | payer MEDICARE, MEDICAID, OTHER ==
[2018-06-18 12:24] VITALS: BMI 19.8
--- NOTE | 2018-06-18 12:42 | ED PDOC ---
Arrival/HPI - General Chief Complaint: Psychiatric Evaluation Time Seen by Provider: 06/18/18 12:30 Historian: Patient - History of Present Illness Narrative History of Present Illness (Text): 06/18/18 12:45 22 year old male, whose past medical history includes schizophrenia and bipolar disorder, presents to the Emergency department brought in by mother for auditory hallucinations, for 6 months. Patient states he has been hearing voices telling him, "you sold your soul to the devil." Mother states patient is compliant with his psychiatric medication but is still hearing multiple voices. Mother also notes patient has been feeling depressed, but patient denies suicidal ideation or homicidal ideation. Patient denies any fever, chills, chest pain, shortness of breath, nausea, vomiting, diarrhea, urinary symptoms, headache, dizziness, or any other complaints. Time/Duration: > month (6 months) Symptom Onset: Gradual Symptom Course: Unchanged Activities at Onset: Light Past Medical History - Provider Review Nursing Documentation Reviewed: Yes - Past History Past History: No Previous - Infectious Disease Hx of Infectious Diseases: None - Tetanus Immunization Tetanus Immunization: Up to Date - Cardiac Hx Cardiac Disorders: No - Pulmonary Hx Respiratory Disorders: No - Neurological Hx Neurological Disorder: No - HEENT Hx HEENT Disorder: No - Renal Hx Renal Disorder: No - Endocrine/Metabolic Hx Endocrine Disorders: No - Hematological/Oncological Hx Blood Disorders: No - Integumentary Hx Dermatological Disorder: No - Musculoskeletal/Rheumatological Hx Musculoskeletal Disorders: No - Gastrointestinal Hx Gastrointestinal Disorders: No - Genitourinary/Gynecological Hx Genitourinary Disorders: No - Psychiatric Hx Psychophysiologic Disorder: Yes Hx Bipolar Disorder: Yes Hx Substance Use: Yes - Past Surgical History Past Surgical History: No Previous - Anesthesia Hx Anesthesia: No Hx Anesthesia Reactions: No Hx Malignant Hyperthermia: No - Suicidal Assessment Feels Threatened In Home Enviroment: No Family/Social History - Physician Review Nursing Documentation Reviewed: Yes Family/Social History: No Known Family HX Smoking Status: Smoker Currrent Status Unknown Hx Alcohol Use: Yes Hx Substance Use: Yes Substance used: MARIJUANA Hx Substance Use Treatment: No Allergies/Home Meds Allergies/Adverse Reactions: Allergies No Known Allergies Allergy (Verified 06/18/18 12:25) Home Medications: Home Meds Medication Instructions Recorded Confirmed ALPRAZolam [Xanax] 1 mg PO TID 06/18/18 06/18/18 Mirtazapine [Remeron] 15 mg PO QPM 06/18/18 06/18/18 Olanzapine [Olanzapine Odt] 10 mg PO BID 06/18/18 06/18/18 Review of Systems - Physician Review All systems were reviewed & negative as marked: Yes - Review of Systems Constitutional: Normal. absent: Fevers, Night Sweats Eyes: Normal ENT: Normal Respiratory: Normal. absent: SOB, Cough Cardiovascular: Normal. absent: Chest Pain Gastrointestinal: Normal. absent: Abdominal Pain, Diarrhea, Nausea, Vomiting Genitourinary Male: Normal Musculoskeletal: Normal. absent: Back Pain, Neck Pain Skin: Normal Neurological: Normal. absent: Headache, Dizziness Endocrine: Normal Hemo/Lymphatic: Normal Psychiatric: Depression, Other (hearing voices) Physical Exam Vital Signs Reviewed: Yes Vital Signs Temp Pulse Resp BP Pulse Ox 06/18/18 12:45 97.9 F 96 H 18 128/71 100 Temperature: Afebrile Blood Pressure: Normal Pulse: Regular Respiratory Rate: Normal Appearance: Positive for: Well-Appearing, Non-Toxic, Comfortable Pain Distress: None Mental Status: Positive for: Alert and Oriented X 3 - Systems Exam Head: Present: Atraumatic, Normocephalic Pupils: Present: PERRL Extroacular Muscles: Present: EOMI Conjunctiva: Present: Normal Mouth: Present: Moist Mucous Membranes Neck: Present: Normal Range of Motion Respiratory/Chest: Present: Clear to Auscultation, Good Air Exchange. No: Respiratory Distress, Accessory Muscle Use Cardiovascular: Present: Regular Rate and Rhythm, Normal S1, S2. No: Murmurs Abdomen: No: Tenderness, Distention, Peritoneal Signs Back: Present: Normal Inspection Upper Extremity: Present: Normal Inspection. No: Cyanosis, Edema Lower Extremity: Present: Normal Inspection. No: Edema Neurological: Present: GCS=15, CN II-XII Intact, Speech Normal Skin: Present: Warm, Dry, Normal Color. No: Rashes Psychiatric: Present: Alert, Oriented x 3, Normal Insight, Normal Concentration Medical Decision Making ED Course and Treatment: 06/18/18 12:47 Impression: 22 year old male, presents to the emergency department with auditory hallucinations. Plan: -- Labs -- Urinalysis -- Reassess and disposition Prior Visits: Notes and results from previous visits were reviewed. Progress Notes: Patient is noted to have had a normal EKG and Chest X-ray less than one month ago. 06/18/18 13:04 EKG reviewed, shows: normal sinus rhythm @ 84bpm 06/18/18 15:28 Patient is medically cleared. 06/18/18 15:37 - Lab Interpretations Lab Results: 06/18/18 12:34 06/18/18 12:34 Lab Results 06/18/18 14:40: Urine Opiates Screen Negative, Urine Methadone Screen Negative, Ur Barbiturates Screen Negative, Ur Phencyclidine Scrn Negative, Ur Amphetamines Screen Negative, U Benzodiazepines Scrn Positive H, U Oth Cocaine Metabols Negative, U Cannabinoids Screen Positive H 06/18/18 14:40: Urine Color Yellow, Urine Appearance Clear, Urine pH 6.5, Ur Specific [place] <= 1.005, Urine Protein Negative, Urine Glucose (UA) Negative, Urine Ketones Negative, Urine Blood Negative, Urine Nitrate Negative, Urine Bilirubin Negative, Urine Urobilinogen 0.2, Ur Leukocyte Esterase Negative 06/18/18 12:34: Alcohol, Quantitative < 10 06/18/18 12:34: Salicylates < 1 L, Acetaminophen < 10.0 L 06/18/18 12:34: Sodium 139, Potassium 4.1, Chloride 103, Carbon Dioxide 26, Anion Gap 14, BUN 16, Creatinine 1.0, Est GFR ( Amer) > 60, Est GFR (Non- Af Amer) > 60, Random Glucose 103, Calcium 9.6, Magnesium 2.0, Total Bilirubin 0.4, AST 18, ALT 13, Alkaline Phosphatase 94, Total Protein 7.4, Albumin 4.5, Globulin 2.9, Albumin/Globulin Ratio 1.5 06/18/18 12:34: WBC 5.0, RBC 4.59, Hgb 14.3, Hct 40.7 L, MCV 88.7, MCH 31.2, MCHC 35.1, RDW 13.0, Plt Count 257, MPV 9.0, Gran % 59.7, Lymph % (Auto) 26.9, [place] % (Auto) 8.2 H, Eos % (Auto) 4.0, Baso % (Auto) 1.2, Gran # 2.97, Lymph # ( Auto) 1.3, [place] # (Auto) 0.4, Eos # (Auto) 0.2, Baso # (Auto) 0.06 - Scribe Statement The provider has reviewed the documentation as recorded by the Scribe Richard Hernandez All medical record entries made by the Scribe were at my direction and personally dictated by me. I have reviewed the chart and agree that the record accurately reflects my personal performance of the history, physical exam, medical decision making, and the department course for this patient. I have also personally directed, reviewed, and agree with the discharge instructions and disposition. Disposition/Present on Arrival - Present on Arrival Any Indicators Present on Arrival: No History of DVT/PE: No History of Uncontrolled Diabetes: No Urinary Catheter: No History of Decub. Ulcer: No History Surgical Site Infection Following: None - Disposition Have Diagnosis and Disposition been Completed?: Yes Diagnosis: Schizophrenia Disposition: HOSPITALIZED Disposition Time: 12:45 Condition: STABLE
[2018-06-18 12:45] VITALS: O2SAT 100
[2018-06-18 13:00] LABS: BASO # 0.06 K/mm3 (0.0-2.0); BASO % 1.2 % (0.0-3.0); EOS # 0.2 (0.0-0.7); GRAN # 2.97 (1.4-6.5); GRAN % 59.7 % (50.0-68.0); HEMOGLOBIN 14.3 g/dL (14.0-18.0); LYMPH # 1.3 (1.2-3.4); LYMPH % 26.9 % (22.0-35.0); MEAN CELL VOLUME 88.7 fl (80.0-105.0); MEAN CORPUSCULAR HEMOGLOBIN 31.2 pg (25.0-35.0); MEAN CORPUSCULAR HGB CONC 35.1 g/dl (31.0-37.0); MONO # 0.4 (0.1-0.6); MONO % 8.2 % (1.0-6.0); RBC 4.59 10^6/uL (3.5-6.1)
[2018-06-18 13:06] LABS: ALB/GLOB RATIO 1.5 (1.1-1.8); ALBUMIN 4.5 g/dL (3.0-4.8); ALT/SGPT 13 U/L (7-56); AST/SGOT 18 U/L (17-59); BLOOD UREA NITROGEN 16 mg/dL (7-21); CALCIUM 9.6 mg/dL (8.4-10.5); GFR NON-AFRICAN AMERICAN > 60
[2018-06-18 13:08] LABS: ACETAMINOPHEN < 10.0 ug/ml (10.0-20.0); SALICYLATE < 1 mg/dL (2.0-20.0)
[2018-06-18 15:01] LABS: PH,URINE 6.5 (4.7-8.0); URINE BILIRUBIN NEGATIVE (NEGATIVE); URINE BLOOD NEGATIVE (NEGATIVE); URINE GLUCOSE (UA) NEGATIVE (NEGATIVE); URINE LEUKOCYTE ESTERASE NEGATIVE Leu/uL (NEGATIVE); URINE PROTEIN NEGATIVE mg/dL (<30 mg/dL); URINE UROBILINOGEN 0.2 E.U./dL (<1 E.U./dL)
[2018-06-18 15:02] LABS: URINE APPEARANCE CLEAR (CLEAR); URINE COLOR YELLOW (YELLOW)
[2018-06-18 15:26] LABS: BARBITURATES, UR NEGATIVE (NEGATIVE); BENZODIAZEPINES, UR POSITIVE (NEGATIVE); OPIATES, UR NEGATIVE (NEGATIVE); PHENCYCLIDINE, UR NEGATIVE (NEGATIVE)
--- NOTE | 2018-06-18 17:37 | CARD ---
APPROVED REPORT Date of service: 06/18/2018 EKG Measurement Heart [id number] <Conclusion> Normal sinus rhythm Normal ECG
--- NOTE | 2018-06-18 19:36 | PCM.BM ---
<MookieGiuseppe gonzalez - Last Filed: 06/18/18 19:33> Treatment Plan Problems - Problems identified on initial assessmt SOCIAL ISOLATION Date Initiated: 06/18/18 Time Initiated: 19:33 Assessment reference: HP, NA Status: Active HALLUCINATIONS Date Initiated: 06/18/18 Time Initiated: 19:34 Assessment reference: HP, NA Status: Active MEDS NONADHERENCE Date Initiated: 06/18/18 Time Initiated: 19:34 Assessment reference: HP, NA Status: Active Treatment assets and liabiliti Patient Assests: adapts well, physically healthy, negotiates basic needs, other Patient Liabilities: poor support system, substance abuse - Milieu Protocol Maintain good personal hygiene: daily Encourage regular showers, daily Remind patient to perform daily oral care, daily Assist patient to perform ADL's Maintain personal safety: daily Educate patient to report safety concerns to staff, daily Monitor environment for contraband/sharps Medication safety: Monitor for expected outcome, potential side effects: daily, Assess barriers to learning: daily, Assess readiness for medication education: daily Discharge/Continuing Care - Education Needs Education Needs: Patient Medication, Patient Diagnosis/Disease Process, Patient Coping Skills, Patient Anger Management skills, Patient Placement options, Patient Community resources, Patient Activities of Daily Living, Patient Health Practices/Safety, Patient Personal Hygiene/Grooming, Patient Aftercare Safety Plan - Discharge Discharge Criteria: Free of Suicidal thoughts, Free of Homicidal thoughts, Free of paranoid thoughts, Normal sleep pattern, Ability to care for self <Allison Jesus - Last Filed: 06/19/18 11:03> - Diagnosis (1) Schizophrenia Status: Chronic Interventions: group, milieu and supportive tx Zyprexa 5 mg po TID for disorganization, paranoia and hallucinations Ambien 10 mg HS prn: insomnia Xanax 1 mg po TID prn: anxiety (UDS +mja and benzos) Consider antidepressant if patient endorses these symptoms on the unit 06/19/18 11:03 (2) Polysubstance abuse Status: Acute Interventions: group, milieu and supportive tx * Zyprexa 5 mg po TID for disorganization, paranoia and hallucinations * Ambien 10 mg HS prn: insomnia * Xanax 1 mg po TID prn: anxiety (UDS +mja and benzos) * Consider antidepressant if patient endorses these symptoms on the unit * Consider naltrexone if patient continues to have a drinking problem (he denies currently) 06/19/18 11:03 <Viviana Post - Last Filed: 06/21/18 16:40>
[2018-06-19 06:46] LABS: GLUCOSE,FASTING 105 mg/dL (65-110); HDL CHOLESTEROL 72 mg/dL (29-60)
[2018-06-19 06:57] LABS: LDL CHOLESTEROL 54 mg/dL (0-129)
[2018-06-19 07:02] LABS: FREE T4 1.01 ng/dL (0.78-2.19)
--- NOTE | 2018-06-19 11:03 | PCM.PSYCH ---
Initial Psychiatric Evaluation - Initial Psychiatric Evaluation Type of Admission: Voluntary Legal Status: Capacity History of Present Illness and Precipitating Events: Patient is a single 22 year old male with history of depression, anxiety and psychotic symptoms who was brought to the ED by his mother for depression and auditory hallucinations. Patient stated to staff that he was paranoid and believed people were following him. I met with patient at bedside this morning. He appears well groomed and oriented to month, location and year. Patient is guarded and minimizes events leading to current presentation on the psychiatric unit. Patient even denied drug or alcohol use though admitted use to staff on the unit. He indicates that he feels "good" and has some anxiety. Affect is constricted, odd and preoccupied. He denied any perceptual disturbance andp atient was not directly observed by this procedure writer to be responding to internal stimuli. During his prior admission he reported that he drank excessively, he was drinking two bottles of vodka and a bottle of wine daily. He reported history of withdrawal seizures as well as DTs in the past. Patient also admitted to MJA use. Thus far he has been in fair behavioral control. Compliant with medications and denies side effects. Patient reports that he wasn't compliant with psychiatric medication [employer] however in the ER mother reported that patient was compliant with medications. Impulse control continues to be tenuous and behavior is unpredictable. I/J are poor. Patient is an unreliable historian due to multiple inconsistencies during interviews. PSYCHIATRIC HISTORY Patient reports one prior psychiatric hospitalization at [facility] from 09/05/17-09/10. He denies any other psychiatric admissions. Per ER report from that admission, patient stated that he has been hearing voices for 2 or 3 years that tell him to hurt himself or others. As per [place] [employer], patient was behaving erratically, screaming and then being despondent in cycles. He apparently had been rejected by a neighbor girl and writing satanic verses on that family's door. Patient was very psychotic and delusional on the unit. Frustration tolerance is poor and patient is prone to tantrums when needs aren't met immediately. Discharge medications from 08/2017 admission include Cogentin 1 mg PO AMHS Risperdal 2 mg PO AMHS Sonata 10 mg PO HS Patient and mother deferred on depot medication when discussed during 08/2017 admission Patient indicates that he did not f/u with a psychiatrist when he was discharged in 08/2017. However per ER report, mother stated that patient was depressed and hearing multiple voices despite compliance with psychiatric medications. He denies any history of suicide attempts. He reports that he did see a psychiatrist at [facility] in March 2017 however does not recall any medications prescribed to him except for Xanax. SOCIAL HISTORY Patient was born and raised in [place]. He's single. He has no children. He went up to freshman (patient reported sophomore during 05/2018 admission) year of high school and then quit. He's unemployed. Patient has a history of alcohol dependency associated with withdrawal seizures and DTs however denies any recent use. Denies drug use. Patient smokes a pack of cigarettes a day however defers on nicotine patch when this provider offers it to him. He was counseled about the morbidity and mortality risks of continued tobacco, alcohol and marijuana use. Current Medications: Active Medications Generic Name Dose Route Start Last Admin Trade Name Freq PRN Reason Stop Dose Admin Acetaminophen 650 mg 06/18/18 18:26 Tylenol 325mg Tab PO Q6H PRN Pain, moderate (4-7) Alprazolam 1 mg 06/18/18 18:20 Xanax PO TID PRN Anxiety Protocol Lorazepam 2 mg 06/18/18 18:22 Ativan PO Q6 PRN Agitation Protocol Lorazepam 2 mg 06/18/18 18:24 Ativan IM Q6H PRN Agitation Protocol Olanzapine 5 mg 06/19/18 08:00 Zyprexa PO TID LESLIE Protocol Ziprasidone 20 mg 06/18/18 18:21 Geodon Cap PO Q6 PRN Agitation Protocol Ziprasidone 20 mg 06/18/18 18:23 Geodon Inj IM Q6 PRN Agitation Protocol Zolpidem Tartrate 10 mg 06/18/18 18:19 06/18/18 21:24 Ambien PO 10 mg HS PRN Administration Insomnia Protocol Past Psychiatric History - Past Psychiatric History Pertinent Medical Hx (Current Medical&Sleep Prob, Allergies): Allergies Allergy/AdvReac Type Severity Reaction Status Date / Time No Known Allergies Allergy Verified 06/18/18 20:32 ALPRAZolam [Xanax] 1 mg PO TID 06/18/18 Mirtazapine [Remeron] 15 mg PO QPM 06/18/18 Olanzapine [Olanzapine Odt] 10 mg PO BID 06/18/18 DSM 5 DX - DSM 5 DSM 5 Diagnosis: Schizoaffective Disorder Polysubstance Abuse (MJA, Alcohol by history) r/o contribution of SIMD, SIPD - Recommended/Plan of Treatment Treatment Recommendations and Plan of Treatment: * group, milieu and supportive tx * Zyprexa 5 mg po TID for disorganization, paranoia and hallucinations * Ambien 10 mg HS prn: insomnia * Xanax 1 mg po TID prn: anxiety (UDS +mja and benzos) * Consider antidepressant if patient endorses these symptoms on the unit * Awaiting medical f/u * Vitals reviewed and noted below: 06/18/18 06/18/18 16:02 16:07 Temperature 97.7 F 97.7 F Pulse Rate 89 89 Respiratory 18 18 Rate Blood Pressure 116/72 116/72 ER STUDIES 06/18/18 13:04 EKG reviewed, shows: normal sinus rhythm @ 84bpm ADMISSION LABS Laboratory Tests 06/18/18 06/18/18 06/18/18 12:34 12:34 12:34 WBC 5.0 RBC 4.59 Hgb 14.3 Hct 40.7 L MCV 88.7 MCH 31.2 MCHC 35.1 RDW 13.0 Plt Count 257 MPV 9.0 Gran % 59.7 Lymph % (Auto) 26.9 [place] % (Auto) 8.2 H Eos % (Auto) 4.0 Baso % (Auto) 1.2 Gran # 2.97 Lymph # (Auto) 1.3 [place] # (Auto) 0.4 Eos # (Auto) 0.2 Baso # (Auto) 0.06 Sodium 139 Potassium 4.1 Chloride 103 Carbon Dioxide 26 Anion Gap 14 BUN 16 Creatinine 1.0 Est GFR ( Amer) > 60 Est GFR (Non-Af Amer) > 60 Random Glucose 103 Fasting Glucose Calcium 9.6 Magnesium 2.0 Total Bilirubin 0.4 AST 18 ALT 13 Alkaline Phosphatase 94 Total Protein 7.4 Albumin 4.5 Globulin 2.9 Albumin/Globulin Ratio 1.5 Triglycerides Cholesterol LDL Cholesterol Direct HDL Cholesterol Free T4 TSH 3rd Generation Urine Color Urine Appearance Urine pH Ur Specific [place] Urine Protein Urine Glucose (UA) Urine Ketones Urine Blood Urine Nitrate Urine Bilirubin Urine Urobilinogen Ur Leukocyte Esterase Salicylates < 1 L Urine Opiates Screen Urine Methadone Screen Acetaminophen < 10.0 L Ur Barbiturates Screen Ur Phencyclidine Scrn Ur Amphetamines Screen U Benzodiazepines Scrn U Oth Cocaine Metabols U Cannabinoids Screen Alcohol, Quantitative 06/18/18 06/18/18 06/18/18 12:34 14:40 14:40 WBC RBC Hgb Hct MCV MCH MCHC RDW Plt Count MPV Gran % Lymph % (Auto) [place] % (Auto) Eos % (Auto) Baso % (Auto) Gran # Lymph # (Auto) [place] # (Auto) Eos # (Auto) Baso # (Auto) Sodium Potassium Chloride Carbon Dioxide Anion Gap BUN Creatinine Est GFR ( Amer) Est GFR (Non-Af Amer) Random Glucose Fasting Glucose Calcium Magnesium Total Bilirubin AST ALT Alkaline Phosphatase Total Protein Albumin Globulin Albumin/Globulin Ratio Triglycerides Cholesterol LDL Cholesterol Direct HDL Cholesterol Free T4 TSH 3rd Generation Urine Color Yellow Urine Appearance Clear Urine pH 6.5 Ur Specific [place] <= 1.005 Urine Protein Negative Urine Glucose (UA) Negative Urine Ketones Negative Urine Blood Negative Urine Nitrate Negative Urine Bilirubin Negative Urine Urobilinogen 0.2 Ur Leukocyte Esterase Negative Salicylates Urine Opiates Screen Negative Urine Methadone Screen Negative Acetaminophen Ur Barbiturates Screen Negative Ur Phencyclidine Scrn Negative Ur Amphetamines Screen Negative U Benzodiazepines Scrn Positive H U Oth Cocaine Metabols Negative U Cannabinoids Screen Positive H Alcohol, Quantitative < 10 06/19/18 06/19/18 06:00 06:00 WBC RBC Hgb Hct MCV MCH MCHC RDW Plt Count MPV Gran % Lymph % (Auto) [place] % (Auto) Eos % (Auto) Baso % (Auto) Gran # Lymph # (Auto) [place] # (Auto) Eos # (Auto) Baso # (Auto) Sodium Potassium Chloride Carbon Dioxide Anion Gap BUN Creatinine Est GFR ( Amer) Est GFR (Non-Af Amer) Random Glucose Fasting Glucose 105 Calcium Magnesium Total Bilirubin AST ALT Alkaline Phosphatase Total Protein Albumin Globulin Albumin/Globulin Ratio Triglycerides 60 Cholesterol 152 LDL Cholesterol Direct 54 HDL Cholesterol 72 H Free T4 1.01 TSH 3rd Generation 2.29 Urine Color Urine Appearance Urine pH Ur Specific [place] Urine Protein Urine Glucose (UA) Urine Ketones Urine Blood Urine Nitrate Urine Bilirubin Urine Urobilinogen Ur Leukocyte Esterase Salicylates Urine Opiates Screen Urine Methadone Screen Acetaminophen Ur Barbiturates Screen Ur Phencyclidine Scrn Ur Amphetamines Screen U Benzodiazepines Scrn U Oth Cocaine Metabols U Cannabinoids Screen Alcohol, Quantitative - Smoking Cessation Smoking Cessation Initiated: Yes Reason for not providing: Patient declined
--- NOTE | 2018-06-20 00:19 | CON ---
Copied To: Darius Montilla DO Attending MD: Darius Montilla DO DATE: 06/19/2018 In the psychiatric floor. HISTORY OF PRESENT ILLNESS: He is a 22-year-old white male who was brought in by his mother, who stated that he is hearing voices telling him to sell yourself to the devil. He is having hearing multiple voices, auditory hallucinations. PAST MEDICAL HISTORY: Schizophrenia and bipolar. Denies suicidal ideations or homicidal ideation. He seems very preoccupied when I am talking to him. He has a history of substance abuse. FAMILY HISTORY: No known family history. SOCIAL HISTORY: He is a smoker of cigarettes, alcohol and marijuana. ALLERGIES: NO KNOWN DRUG ALLERGIES. MEDICATIONS: He is on Xanax, Remeron, and olanzapine. REVIEW OF SYSTEMS: No acute vision or hearing changes. No sore throat. No chest pain or palpitations. No shortness of breath or cough. No abdominal pain, nausea, vomiting, constipation, or diarrhea. No back issues. No skin issues that he knows of. No headache or dizziness. No anxiety. He is a little depressed and he is hearing voices. PHYSICAL EXAMINATION VITAL SIGNS: He has 97.9 temperature, 96 pulse, 18 respiratory rate, 128/71 blood pressure, 100% O2 sat on room air. GENERAL: He is well appearing, nontoxic, comfortable talking with me. It looks like he wants help. He is alert and oriented x3. HEENT: His head is atraumatic and normocephalic. Extraocular muscles are intact. Pupils are equal and reactive to light and accommodation. Throat is moist. NECK: Supple. Good range of motion. HEART: Regular rate. Normal S1 and S2. LUNGS: Decreased breath sounds, but clear to auscultation bilaterally. ABDOMEN: Soft, nontender. Positive bowel sounds. No guarding. No rebound. No CVA tenderness. EXTREMITIES: No edema. He can move all four extremities. NEUROLOGIC: GCS is 15. Cranial nerves II through XII grossly intact. Speech is normal. Neurologically, he is intact. SKIN: Warm and dry. No apparent rashes, ulcers, or issues of the skin. LYMPHATICS: Thyroid midline. No palpable or appreciable lymphadenopathy. Alert and oriented x3. Flat affect. LABORATORY DATA: He had multiple tests done. EKG was normal sinus rhythm. He has a urine drug screen, was positive for benzos, positive for marijuana. Urine though is clean. Chemistry, he has 139 sodium, potassium is 4.1, BUN creatinine 1. GFR is greater than 60. Sugar is 103. Calcium is 9.6, magnesium is 2, total bili is 0.4. AST is 18, ALT is 13, alkaline phosphatase 94, total protein 7.4, albumin is 4.5, globulin 2.9, triglycerides are 60, cholesterol is 152, LDL is 54, HDL is 72, TSH is 2.29. He has a 5 white count, 14.3 hemoglobin, 40.7 hematocrit, with 257 platelets. EKG was good, normal sinus rhythm. ASSESSMENT AND PLAN: We will continue to follow along with Psychiatry. Hopefully, he will continue to improve. He is on regular diet and he is here for schizophrenia, bipolar, auditory hallucination, depression and drug abuse. Darius Montilla DO MTDD
--- NOTE | 2018-06-20 10:46 | PCM.PYCHPN ---
Psychiatric Progress Note - Psychiatric Progress Note Patient seen today, length of contact: 30 min Problems Identified/Issues Discussed: History of Present Illness and Precipitating Events: Patient is a single 22 year old male with history of depression, anxiety and psychotic symptoms who was brought to the ED by his mother for depression and auditory hallucinations. Patient stated to staff that he was paranoid and believed people were following him. I met with patient at bedside this morning. He appears well groomed and oriented to month, location and year. Patient is guarded and minimizes events leading to current presentation on the psychiatric unit. Patient even denied drug or alcohol use though admitted use to staff on the unit. He indicates that he feels "good" and has some anxiety. Affect is constricted, odd and preoccupied. He denied any perceptual disturbance andp atient was not directly observed by this technical publications writer to be responding to internal stimuli. During his prior admission he reported that he drank excessively, he was drinking two bottles of vodka and a bottle of wine daily. He reported history of withdrawal seizures as well as DTs in the past. Patient also admitted to MJA use. Thus far he has been in fair behavioral control. Compliant with medications and denies side effects. 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 Impulse control continues to be tenuous and behavior is unpredictable. I/J are poor. Patient is an unreliable historian due to multiple inconsistencies during interviews. PSYCHIATRIC HISTORY Patient reports one prior psychiatric hospitalization at [facility] [place]. He denies any other psychiatric admissions. Per ER report from that admission, patient stated that he has been hearing voices for 2 or 3 years that tell him to hurt himself or others. As per [place] Police, patient was behaving erratically, screaming and then being despondent in cycles. He apparently had been rejected by a neighbor girl and writing satanic verses on that family's door. Patient was very psychotic and delusional on the unit. Frustration tolerance is poor and patient is prone to tantrums when needs aren't met immediately. Discharge medications from 08/2017 admission include Cogentin 1 mg PO AMHS Risperdal 2 mg PO AMHS Sonata 10 mg PO HS Patient and mother deferred on depot medication when discussed during 08/2017 admission Patient indicates that he did not f/u with a psychiatrist when he was discharged in 08/2017. However per ER report, mother stated that patient was depressed and hearing multiple voices despite compliance with psychiatric medications. He denies any history of suicide attempts. He reports that he did see a psychiatrist at [facility] in March 2017 however does not recall any medications prescribed to him except for Xanax. SOCIAL HISTORY Patient was born and raised in [place]. He's single. He has no children. He went up to freshman (patient reported sophomore during 05/2018 admission) year of high school and then quit. He's unemployed. Patient has a history of alcohol dependency associated with withdrawal seizures and DTs however denies any recent use. Denies drug use. Patient smokes a pack of cigarettes a day however defers on nicotine patch when this provider offers it to him. He was counseled about the morbidity and mortality risks of continued tobacco, alcohol and marijuana use. PROGRESS NOTE I met with patient at bedside again this morning. He appears well groomed and oriented to month, location and year. Patient remains superficial and guarded during my questioning. He reports that "everything is going good" and denies having any complaints or concerns. Specifically denies depression, hallucinations or paranoia. Focus and memory are improved today and patient was able to indicate that Dr. Dunlap prescribed his psychiatric medicaitons SOFT MUD MOLDER. Patient reports he was compliant with these medications. Denied alcohol use prior to admission. Affect is constricted, a little odd and preoccupied. He denied any perceptual disturbance and patient was not directly observed by this technical publications writer to be responding to internal stimuli. Thus far he has been in fair behavioral control. Compliant with medications and denies side effects. Staff have noted that patient has been isolative and withdrawn on the unit. Didn't attend group on Thursday night even with encouragement. Impulse control continues to be tenuous and behavior is unpredictable. I/J are poor. Diagnostic Results: Schizoaffective Disorder Polysubstance Abuse (MJA, Alcohol by history) r/o contribution of SIMD, SIPD Medication Change: Yes Medical Record Reviewed: No Mental Status Examination - Cognitive Function Orientation: Person, Place, Situation Memory: Impaired Attention: Poor Concentration: Poor Association: Loose Fund of Knowledge: Poor - Mood Mood: Neutral ("very happy") - Affect Affect: Flat, Other (preocuppied, guarded) - Speech Speech: Appropriate - Formal Thought Process Formal Thought Process: No Impairment, Hallucinations (denied all weekend to this provider, however admitted to hallucinations to staff on Thursday) - Homicidal Ideation Homicidal Ideation: No Goal/Treatment Plan - Goal/Treatment Plan Progress Toward Problem(s) and Goals/Treatment Plan: * group, milieu and supportive tx * Zyprexa 5 mg po TID for disorganization, paranoia and hallucinations * Ambien 10 mg HS prn: insomnia * Xanax 1 mg po TID prn: anxiety (UDS +mja and benzos) * Consider antidepressant if patient endorses these symptoms on the unit * Appreciate f/u by Dr. Montilla on 06/19/18 * Vitals reviewed and noted below: Selected Entries 06/19/18 06/19/18 07:18 15:00 Temperature 98.1 F Pulse Rate 68 85 Respiratory 20 Rate Blood Pressure 119/68 109/62 ER STUDIES 06/18/18 13:04 EKG reviewed, shows: normal sinus rhythm @ 84bpm ADMISSION LABS Laboratory Tests 06/18/18 06/18/18 06/18/18 12:34 12:34 12:34 WBC 5.0 RBC 4.59 Hgb 14.3 Hct 40.7 L MCV 88.7 MCH 31.2 MCHC 35.1 RDW 13.0 Plt Count 257 MPV 9.0 Gran % 59.7 Lymph % (Auto) 26.9 [place] % (Auto) 8.2 H Eos % (Auto) 4.0 Baso % (Auto) 1.2 Gran # 2.97 Lymph # (Auto) 1.3 [place] # (Auto) 0.4 Eos # (Auto) 0.2 Baso # (Auto) 0.06 Sodium 139 Potassium 4.1 Chloride 103 Carbon Dioxide 26 Anion Gap 14 BUN 16 Creatinine 1.0 Est GFR ( Amer) > 60 Est GFR (Non-Af Amer) > 60 Random Glucose 103 Fasting Glucose Calcium 9.6 Magnesium 2.0 Total Bilirubin 0.4 AST 18 ALT 13 Alkaline Phosphatase 94 Total Protein 7.4 Albumin 4.5 Globulin 2.9 Albumin/Globulin Ratio 1.5 Triglycerides Cholesterol LDL Cholesterol Direct HDL Cholesterol Free T4 TSH 3rd Generation Urine Color Urine Appearance Urine pH Ur Specific [place] Urine Protein Urine Glucose (UA) Urine Ketones Urine Blood Urine Nitrate Urine Bilirubin Urine Urobilinogen Ur Leukocyte Esterase Salicylates < 1 L Urine Opiates Screen Urine Methadone Screen Acetaminophen < 10.0 L Ur Barbiturates Screen Ur Phencyclidine Scrn Ur Amphetamines Screen U Benzodiazepines Scrn U Oth Cocaine Metabols U Cannabinoids Screen Alcohol, Quantitative 06/18/18 06/18/18 06/18/18 12:34 14:40 14:40 WBC RBC Hgb Hct MCV MCH MCHC RDW Plt Count MPV Gran % Lymph % (Auto) [place] % (Auto) Eos % (Auto) Baso % (Auto) Gran # Lymph # (Auto) [place] # (Auto) Eos # (Auto) Baso # (Auto) Sodium Potassium Chloride Carbon Dioxide Anion Gap BUN Creatinine Est GFR ( Amer) Est GFR (Non-Af Amer) Random Glucose Fasting Glucose Calcium Magnesium Total Bilirubin AST ALT Alkaline Phosphatase Total Protein Albumin Globulin Albumin/Globulin Ratio Triglycerides Cholesterol LDL Cholesterol Direct HDL Cholesterol Free T4 TSH 3rd Generation Urine Color Yellow Urine Appearance Clear Urine pH 6.5 Ur Specific [place] <= 1.005 Urine Protein Negative Urine Glucose (UA) Negative Urine Ketones Negative Urine Blood Negative Urine Nitrate Negative Urine Bilirubin Negative Urine Urobilinogen 0.2 Ur Leukocyte Esterase Negative Salicylates Urine Opiates Screen Negative Urine Methadone Screen Negative Acetaminophen Ur Barbiturates Screen Negative Ur Phencyclidine Scrn Negative Ur Amphetamines Screen Negative U Benzodiazepines Scrn Positive H U Oth Cocaine Metabols Negative U Cannabinoids Screen Positive H Alcohol, Quantitative < 10 06/19/18 06/19/18 06:00 06:00 WBC RBC Hgb Hct MCV MCH MCHC RDW Plt Count MPV Gran % Lymph % (Auto) [place] % (Auto) Eos % (Auto) Baso % (Auto) Gran # Lymph # (Auto) [place] # (Auto) Eos # (Auto) Baso # (Auto) Sodium Potassium Chloride Carbon Dioxide Anion Gap BUN Creatinine Est GFR ( Amer) Est GFR (Non-Af Amer) Random Glucose Fasting Glucose 105 Calcium Magnesium Total Bilirubin AST ALT Alkaline Phosphatase Total Protein Albumin Globulin Albumin/Globulin Ratio Triglycerides 60 Cholesterol 152 LDL Cholesterol Direct 54 HDL Cholesterol 72 H Free T4 1.01 TSH 3rd Generation 2.29 Urine Color Urine Appearance Urine pH Ur Specific [place] Urine Protein Urine Glucose (UA) Urine Ketones Urine Blood Urine Nitrate Urine Bilirubin Urine Urobilinogen Ur Leukocyte Esterase Salicylates Urine Opiates Screen Urine Methadone Screen Acetaminophen Ur Barbiturates Screen Ur Phencyclidine Scrn Ur Amphetamines Screen U Benzodiazepines Scrn U Oth Cocaine Metabols U Cannabinoids Screen Alcohol, Quantitative
--- NOTE | 2018-06-20 15:51 | PN ---
Copied To: Darius Montilla DO Attending MD: Darius Montilla DO DATE: 06/20/2018 SUBJECTIVE: I saw him resting comfortably in his bed. He is actually much improved since yesterday. He is actually smiling. He has affect on his face, he did not have that yesterday. He was almost catatonic, now he is more animated. He is eating his breakfast, he smiled, he feels less depressed. He is here with schizophrenia, bipolar, auditory hallucinations, depression, and marijuana use. He is on Ambien, Ativan, Geodon, Tylenol, Xanax, and Zyprexa, which I think is new for him. PHYSICAL EXAMINATION: VITAL SIGNS: He has 97.9 temperature, 86 pulse, 107/63 blood pressure, 20 respiratory rate, and 100% O2 sat on room air. HEENT: Head is atraumatic, normocephalic. HEART: Regular rate. LUNGS: Clear to auscultation. ABDOMEN: Soft. EXTREMITIES: No edema. LABORATORY DATA: He had 5 white count, 14.3 hemoglobin, 257 platelets. He has 139 sodium, potassium 4.1. BUN 16, creatinine 1. GFR is greater than 60. Sugar is 105. Calcium is 9.6, magnesium 2. Total bili is 0.4, AST is 18, ALT is 13, alk phos 94. Total protein is 7.4, albumin is 4.5, globulin 2.9. Triglycerides are 60, cholesterol is 152, LDL 54, HDL is very good at 72. TSH is 2.29, which is good. Urine is clear. Toxicology showed benzodiazepines and marijuana. Nonreactive RPR. As per Psychiatry, I do think already he is starting to show some improvement, continues as per Psychology and Psychiatry will follow. Darius Montilla DO MTDD
--- NOTE | 2018-06-21 08:19 | PN ---
Copied To: Darius Montilla DO Attending MD: Darius Montilla DO DATE: 06/21/2018 SUBJECTIVE: I saw Edilson resting comfortably in bed. He told me he slept well last night. He is feeling better mentally. He is on Ambien, Ativan, Geodon, Ecotrin, Tylenol, Xanax and Zyprexa. OBJECTIVE: VITAL SIGNS: Temperature 97.9, 86 pulse, 107/63 blood pressure, 20 respiratory rate. HEENT: Head is atraumatic, normocephalic. HEART: Regular rate. LUNGS: Decreased breath sounds, but clear. ABDOMEN: Soft. EXTREMITIES: No edema. He is smiling. He is more animated. He is doing a little bit better. His labs on 06/18/2018 were good. His TSH is good at 2.29. He is being seen by Psychiatry. They are adjusting his medications. I do see some improvement. Hopefully, this will continue. I encouraged him to eat, participate in groups. Follow up with the psychiatrist. We will follow medically. This is a patient who has schizophrenia, bipolar, auditory hallucinations, depression and drug abuse. Darius Montilla DO
--- NOTE | 2018-06-21 15:29 | PCM.PYCHPN ---
Psychiatric Progress Note - Psychiatric Progress Note Patient seen today, length of contact: 30 min Patient Chief Complaint: hearing voices, female and male, U from not paying close attention mood voices will become devils voice, I'm trying to pay close attention, last time I heard voices was yesterday" Problems Identified/Issues Discussed: Suicide/ homicide prevention, past psychiatric h/o, current psychiatric symptoms , medical problems, risk/benefits and alternatives of medications, medications compliance, coping strategies, substance abuse h/o, relapse prevention, importance of follow up with psychiatrist and therapist, discharge plan. Medical Problems: patient is relatively healthy, was seen by medical team in the emergency room Diagnostic Results: 06/18/18 12:34 06/18/18 12:34 Lab Results 06/19/18 06:00: RPR Nonreactive 06/19/18 06:00: Free T4 1.01, TSH 3rd Generation 2.29 06/19/18 06:00: Fasting Glucose 105, Triglycerides 60, Cholesterol 152, LDL Cholesterol Direct 54, HDL Cholesterol 72 H 06/18/18 14:40: Urine Opiates Screen Negative, Urine Methadone Screen Negative, Ur Barbiturates Screen Negative, Ur Phencyclidine Scrn Negative, Ur Amphetamines Screen Negative, U Benzodiazepines Scrn Positive H, U Oth Cocaine Metabols Negative, U Cannabinoids Screen Positive H 06/18/18 14:40: Urine Color Yellow, Urine Appearance Clear, Urine pH 6.5, Ur Specific [place] <= 1.005, Urine Protein Negative, Urine Glucose (UA) Negative, Urine Ketones Negative, Urine Blood Negative, Urine Nitrate Negative, Urine Bilirubin Negative, Urine Urobilinogen 0.2, Ur Leukocyte Esterase Negative 06/18/18 12:34: Alcohol, Quantitative < 10 06/18/18 12:34: Salicylates < 1 L, Acetaminophen < 10.0 L 06/18/18 12:34: Sodium 139, Potassium 4.1, Chloride 103, Carbon Dioxide 26, Anion Gap 14, BUN 16, Creatinine 1.0, Est GFR ( Amer) > 60, Est GFR (Non- Af Amer) > 60, Random Glucose 103, Calcium 9.6, Magnesium 2.0, Total Bilirubin 0.4, AST 18, ALT 13, Alkaline Phosphatase 94, Total Protein 7.4, Albumin 4.5, Globulin 2.9, Albumin/Globulin Ratio 1.5 08/24/18 12:34: WBC 5.0, RBC 4.59, Hgb 14.3, Hct 40.7 L, MCV 88.7, MCH 31.2, MCHC 35.1, RDW 13.0, Plt Count 257, MPV 9.0, Gran % 59.7, Lymph % (Auto) 26.9, [place] % (Auto) 8.2 H, Eos % (Auto) 4.0, Baso % (Auto) 1.2, Gran # 2.97, Lymph # ( Auto) 1.3, [place] # (Auto) 0.4, Eos # (Auto) 0.2, Baso # (Auto) 0.06 Vital Signs Temp Pulse Pulse Resp BP Pulse Ox 06/21/18 07:18 98.1 F 76 20 107/69 06/20/18 21:47 88 114/73 06/20/18 07:39 97.9 F 86 20 107/63 06/19/18 15:00 85 109/62 06/19/18 07:18 98.1 F 68 20 119/68 06/18/18 19:51 87 18 06/18/18 16:07 97.7 F 89 18 116/72 100 06/18/18 16:02 97.7 F 89 18 116/72 100 06/18/18 12:45 97.9 F 96 H 18 128/71 100 DSM 5 Symptoms Update: as per Dr. Jesus's assessment: Patient is a single 22 year old male with history of depression, anxiety and psychotic symptoms who was brought to the ED by his mother for depression and auditory hallucinations. Patient stated to staff that he was paranoid and believed people were following him. patient is very familiar to this conventional mortgage underwriter from the previous admission to the psychiatric inpatient unit at [facility] from 09/05/17-09/10/17. Patient has history of command type hallucinations, pt was writing satanic verses on the family's door, police was involved. pt was seen at the treatment to maintain, patient presented to be psychotic, but was not agitated, patient obviously responding to internal stimuli, appears to be anxious, but reported to feel "great". Patient said that he hears female and male voices, patient reported that if he not pay close attention to the voices they become "devils voice". Patient reported last time he heard voices was yesterday. Patient reported that he feels better on the medications, asked about potential discharge date, reported that he needs to go to [place]. Affect is constricted, odd and preoccupied. Tas per staff thus far pt has been in fair behavioral control. Compliant with medications and denies side effects. Staff have noted that patient has been isolative and withdrawn on the unit. Didn't attend group on Thursday night even with encouragement. Impulse control continues to be tenuous and behavior is unpredictable. I/J are poor. Diagnostic Results: Schizoaffective Disorder Polysubstance Abuse (MJA, Alcohol by history) r/o contribution of SIMD, SIPD Medication Change: Yes (Zyprexa increased, cogentin added) Medical Record Reviewed: Yes Consults ordered or reviewed: patient was seen by medical team and the emergency room Mental Status Examination - Cognitive Function Orientation: Person, Place, Situation Memory: Impaired Attention: Poor Concentration: Poor Association: Loose Fund of Knowledge: Poor - Mood Mood: Neutral ("very happy") - Affect Affect: Flat, Other (preocuppied, guarded) - Speech Speech: Appropriate - Formal Thought Process Formal Thought Process: No Impairment, Hallucinations (reported hallucinations yesterday) - Suicidal Ideation Suicidal Ideation: No - Homicidal Ideation Homicidal Ideation: No Goal/Treatment Plan - Goal/Treatment Plan Need for Continued Stay: Remain at risks for inpatient hospitalization, Severe depression anxiety, Discharge may exacerbated symptoms, Severe functional impairment Progress Toward Problem(s) and Goals/Treatment Plan: Milieu/structure/supportive therapy Medical consult ill be considered SW consultation for discharge plan and social issues Med management Zyprexa was increased to 10 mg twice a day for psychosis Cogentin 1 mg twice a day for possible EPS Xanax 1 mg 3 times a day for anxiety Ambien 10 mg at the nighttime scheduled for insomnia Family involvement Follow up on labs Will monitor closely Pt was educated about risk/benefits and alternatives of medications, coping strategies (safety plan, suicide prevention), relapse prevention, importance of follow up with psychiatrist and therapist, stay away from drugs/alcohol/smoking Estimated Date of D/C: 06/25/18
--- NOTE | 2018-06-22 09:01 | PN ---
Copied To: Darius Montilla DO Attending MD: Darius Montilla DO DATE: 06/22/2018 SUBJECTIVE: I saw him resting comfortably in bed. He slept well last night. He is in good spirits. He is feeling better. He tells me the medicines did help him. He is on Ambien, Ativan, Cogentin, Geodon, Nicoderm, Tylenol, Xanax and Zyprexa. PHYSICAL EXAMINATION: VITAL SIGNS: 98.3 temp, 78 pulse, 126/70 blood pressure, 18 respiratory rate. GENERAL: He is alert. He is comfortable. He tells me he is going home on . HEENT: His head is atraumatic, normocephalic. HEART: Regular rate. LUNGS: Decreased breath sounds, but clear. ABDOMEN: Soft. EXTREMITIES: No edema. LABORATORY DATA: Lab on 06/18/2018 was good. Thyroid is good at . Urine is good. Toxicology showed benzos and marijuana. Nonreactive RPR. ASSESSMENT AND PLAN: I will continue to adjust medication as per Psychiatry. Medically, I do think he is sound at this time. We will continue to follow. Will continue to participate in groups, eat his food and hopefully he will continue to improve. Darius Montilla DO MTDD
--- NOTE | 2018-06-22 15:44 | PCM.PYCHPN ---
Psychiatric Progress Note - Psychiatric Progress Note Patient seen today, length of contact: 30 min Patient Chief Complaint: "I feel much better" Problems Identified/Issues Discussed: Suicide/ homicide prevention, past psychiatric h/o, current psychiatric symptoms , medical problems, risk/benefits and alternatives of medications, medications compliance, coping strategies, substance abuse h/o, relapse prevention, importance of follow up with psychiatrist and therapist, discharge plan. Medical Problems: patient is relatively healthy, was seen by medical team in the emergency room Diagnostic Results: 06/18/18 12:34 06/18/18 12:34 Lab Results 06/19/18 06:00: RPR Nonreactive 06/19/18 06:00: Free T4 1.01, TSH 3rd Generation 2.29 06/19/18 06:00: Fasting Glucose 105, Triglycerides 60, Cholesterol 152, LDL Cholesterol Direct 54, HDL Cholesterol 72 H 06/18/18 14:40: Urine Opiates Screen Negative, Urine Methadone Screen Negative, Ur Barbiturates Screen Negative, Ur Phencyclidine Scrn Negative, Ur Amphetamines Screen Negative, U Benzodiazepines Scrn Positive H, U Oth Cocaine Metabols Negative, U Cannabinoids Screen Positive H 06/18/18 14:40: Urine Color Yellow, Urine Appearance Clear, Urine pH 6.5, Ur Specific [place] <= 1.005, Urine Protein Negative, Urine Glucose (UA) Negative, Urine Ketones Negative, Urine Blood Negative, Urine Nitrate Negative, Urine Bilirubin Negative, Urine Urobilinogen 0.2, Ur Leukocyte Esterase Negative 06/18/18 12:34: Alcohol, Quantitative < 10 06/18/18 12:34: Salicylates < 1 L, Acetaminophen < 10.0 L 06/18/18 12:34: Sodium 139, Potassium 4.1, Chloride 103, Carbon Dioxide 26, Anion Gap 14, BUN 16, Creatinine 1.0, Est GFR ( Amer) > 60, Est GFR (Non- Af Amer) > 60, Random Glucose 103, Calcium 9.6, Magnesium 2.0, Total Bilirubin 0.4, AST 18, ALT 13, Alkaline Phosphatase 94, Total Protein 7.4, Albumin 4.5, Globulin 2.9, Albumin/Globulin Ratio 1.5 06/18/18 12:34: WBC 5.0, RBC 4.59, Hgb 14.3, Hct 40.7 L, MCV 88.7, MCH 31.2, MCHC 35.1, RDW 13.0, Plt Count 257, MPV 9.0, Gran % 59.7, Lymph % (Auto) 26.9, [place] % (Auto) 8.2 H, Eos % (Auto) 4.0, Baso % (Auto) 1.2, Gran # 2.97, Lymph # ( Auto) 1.3, [place] # (Auto) 0.4, Eos # (Auto) 0.2, Baso # (Auto) 0.06 Vital Signs Temp Pulse Pulse Resp BP Pulse Ox 06/21/18 07:18 98.1 F 76 20 107/69 06/20/18 21:47 88 114/73 06/20/18 07:39 97.9 F 86 20 107/63 06/19/18 15:00 85 109/62 06/19/18 07:18 98.1 F 68 20 119/68 06/18/18 19:51 87 18 06/18/18 16:07 97.7 F 89 18 116/72 100 06/18/18 16:02 97.7 F 89 18 116/72 100 06/18/18 12:45 97.9 F 96 H 18 128/71 100 Temp Pulse Resp BP Pulse Ox 98.3 F 70 18 126/70 100 06/22/18 07:00 06/22/18 07:00 06/22/18 07:00 06/22/18 07:00 06/18/18 16:07 DSM 5 Symptoms Update: Patient is a single 22 year old male with history of depression, anxiety and psychotic symptoms who was brought to the ED by his mother for depression and auditory hallucinations. Patient stated to staff that he was paranoid and believed people were following him. patient is very familiar to this press writer from the previous admission to the psychiatric inpatient unit at [facility] from 09/05/17-09/10/17. Patient has history of command type hallucinations, pt was writing satanic verses on the family's door, police was involved. pt was seen at the treatment team meeting room, patient presented with improvement of his symptoms, patient is less times, has fair eye contact, affect was brighter to compare with yesterday, hygiene is improving. Patient reported that voices "getting better, last time I heard voices was Thursday ".patient participate in unit activities, no agitation or aggression. patient still presented to be odd and preoccupied. as per staff thus far pt has been in fair behavioral control. Compliant with medications and denies side effects, aims 0, no EPS. patient is more visible at the unit. Diagnostic Results: Schizoaffective Disorder Polysubstance Abuse (MJA, Alcohol by history) r/o contribution of SIMD, SIPD Medication Change: Yes (cogentin increased) Medical Record Reviewed: Yes Consults ordered or reviewed: patient was seen by medical team and the emergency room Mental Status Examination - Cognitive Function Orientation: Person, Place, Situation Memory: Impaired Attention: Poor (some improvement) Concentration: Poor (some improvement) Association: Loose Fund of Knowledge: Poor - Mood Mood: Neutral ("I feel better") - Affect Affect: Constricted (but more reactive and mood congruent) - Speech Speech: Appropriate - Formal Thought Process Formal Thought Process: No Impairment, Hallucinations (denied today) - Suicidal Ideation Suicidal Ideation: No - Homicidal Ideation Homicidal Ideation: No Goal/Treatment Plan - Goal/Treatment Plan Need for Continued Stay: Remain at risks for inpatient hospitalization, Severe depression anxiety, Discharge may exacerbated symptoms, Severe functional impairment Progress Toward Problem(s) and Goals/Treatment Plan: Milieu/structure/supportive therapy Medical consult ill be considered SW consultation for discharge plan and social issues Med management Zyprexa 10 mg twice a day for psychosis Cogentin 1 mg 3 times a day for possible EPS Xanax 1 mg 3 times a day for anxiety Ambien 10 mg at the nighttime scheduled for insomnia Family involvement Follow up on labs Will monitor closely Pt was educated about risk/benefits and alternatives of medications, coping strategies (safety plan, suicide prevention), relapse prevention, importance of follow up with psychiatrist and therapist, stay away from drugs/alcohol/smoking patient is planning to go to [place] for 2 weeks, patient was educated about importance to continue medications and take medication as prescribed, stay away from drugs and alcohol patient verbalize understanding Estimated Date of D/C: 06/25/18
[2018-06-23 07:21] VITALS: RESP 20
--- NOTE | 2018-06-23 11:09 | PCM.PYCHPN ---
Psychiatric Progress Note - Psychiatric Progress Note Patient seen today, length of contact: 30 min Problems Identified/Issues Discussed: History of Present Illness and Precipitating Events: Patient is a single 22 year old male with history of depression, anxiety and psychotic symptoms who was brought to the ED by his mother for depression and auditory hallucinations. Patient stated to staff that he was paranoid and believed people were following him. I met with patient at bedside this morning. He appears well groomed and oriented to month, location and year. Patient is guarded and minimizes events leading to current presentation on the psychiatric unit. Patient even denied drug or alcohol use though admitted use to staff on the unit. He indicates that he feels "good" and has some anxiety. Affect is constricted, odd and preoccupied. He denied any perceptual disturbance andp atient was not directly observed by this rewriter to be responding to internal stimuli. During his prior admission he reported that he drank excessively, he was drinking two bottles of vodka and a bottle of wine daily. He reported history of withdrawal seizures as well as DTs in the past. Patient also admitted to MJA use. Thus far he has been in fair behavioral control. Compliant with medications and denies side effects. Patient reports that he wasn't compliant with psychiatric medication COLORIST however in the ER mother reported that patient was compliant with medications. Impulse control continues to be tenuous and behavior is unpredictable. I/J are poor. Patient is an unreliable historian due to multiple inconsistencies during interviews. PSYCHIATRIC HISTORY Patient reports one prior psychiatric hospitalization at [facility] from 09/05/17-09/10. He denies any other psychiatric admissions. Per ER report from that admission, patient stated that he has been hearing voices for 2 or 3 years that tell him to hurt himself or others. As per [place] [employer], patient was behaving erratically, screaming and then being despondent in cycles. He apparently had been rejected by a neighbor girl and writing satanic verses on that family's door. Patient was very psychotic and delusional on the unit. Frustration tolerance is poor and patient is prone to tantrums when needs aren't met immediately. Discharge medications from 08/2017 admission include Cogentin 1 mg PO [facility] Risperdal 2 mg PO [facility] Sonata 10 mg PO HS Patient and mother deferred on depot medication when discussed during 08/2017 admission Patient indicates that he did not f/u with a psychiatrist when he was discharged in 08/2017. However per ER report, mother stated that patient was depressed and hearing multiple voices despite compliance with psychiatric medications. He denies any history of suicide attempts. He reports that he did see a psychiatrist at [facility] [place] in March 2017 however does not recall any medications prescribed to him except for Xanax. SOCIAL HISTORY Patient was born and raised in [place]. He's single. He has no children. He went up to freshman (patient reported sophomore during 05/2018 admission) year of high school and then quit. He's unemployed. Patient has a history of alcohol dependency associated with withdrawal seizures and DTs however denies any recent use. Denies drug use. Patient smokes a pack of cigarettes a day however defers on nicotine patch when this provider offers it to him. He was counseled about the morbidity and mortality risks of continued tobacco, alcohol and marijuana use. PROGRESS NOTE I met with patient at bedside again this morning. He appears well groomed and oriented to month, location and year. Patient remains superficial during my questioning. He reports that he feels good and denies having any complaints or concerns. Specifically denies depression, hallucinations or paranoia. Focus and memory show sustained improvement since admission. Affect is constricted, and preoccupied but not bizarre. He has not been observed to be responding to internal stimuli and continues to deny any perceptual disturbance. Patient is compliant with medications and denies side effects. Staff have noted that patient is more visible and has been socializing with peers appropriately. He has also been participating in groups and demonstrating good behavioral control. I/J are improving. Diagnostic Results: Schizoaffective Disorder Polysubstance Abuse (MJA, Alcohol by history) r/o contribution of SIMD, SIPD Medication Change: No ( ) Medical Record Reviewed: Yes Mental Status Examination - Cognitive Function Orientation: Person, Place, Situation Memory: Impaired Attention: Poor (some improvement) Concentration: Poor (some improvement) Association: Loose Fund of Knowledge: Poor - Mood Mood: Neutral ("I feel better") - Affect Affect: Constricted (but more reactive and mood congruent) - Speech Speech: Appropriate - Formal Thought Process Formal Thought Process: No Impairment, Hallucinations (denied today) - Suicidal Ideation Suicidal Ideation: No - Homicidal Ideation Homicidal Ideation: No Goal/Treatment Plan - Goal/Treatment Plan Need for Continued Stay: Remain at risks for inpatient hospitalization, Severe depression anxiety, Discharge may exacerbated symptoms, Severe functional impairment Progress Toward Problem(s) and Goals/Treatment Plan: * group, milieu and supportive tx * No new labs results thus far today * Vitals reviewed and noted below: Selected Entries 06/22/18 06/22/18 07:00 16:00 Temperature 98.3 F Pulse Rate 70 90 Respiratory 18 Rate Blood Pressure 126/70 100/68 ER STUDIES 06/18/18 13:04 EKG reviewed, shows: normal sinus rhythm @ 84bpm ADMISSION LABS Laboratory Tests 06/18/18 06/18/18 06/18/18 12:34 12:34 12:34 WBC 5.0 RBC 4.59 Hgb 14.3 Hct 40.7 L MCV 88.7 MCH 31.2 MCHC 35.1 RDW 13.0 Plt Count 257 MPV 9.0 Gran % 59.7 Lymph % (Auto) 26.9 [place] % (Auto) 8.2 H Eos % (Auto) 4.0 Baso % (Auto) 1.2 Gran # 2.97 Lymph # (Auto) 1.3 [place] # (Auto) 0.4 Eos # (Auto) 0.2 Baso # (Auto) 0.06 Sodium 139 Potassium 4.1 Chloride 103 Carbon Dioxide 26 Anion Gap 14 BUN 16 Creatinine 1.0 Est GFR ( Amer) > 60 Est GFR (Non-Af Amer) > 60 Random Glucose 103 Fasting Glucose Calcium 9.6 Magnesium 2.0 Total Bilirubin 0.4 AST 18 ALT 13 Alkaline Phosphatase 94 Total Protein 7.4 Albumin 4.5 Globulin 2.9 Albumin/Globulin Ratio 1.5 Triglycerides Cholesterol LDL Cholesterol Direct HDL Cholesterol Free T4 TSH 3rd Generation Urine Color Urine Appearance Urine pH Ur Specific [place] Urine Protein Urine Glucose (UA) Urine Ketones Urine Blood Urine Nitrate Urine Bilirubin Urine Urobilinogen Ur Leukocyte Esterase Salicylates < 1 L Urine Opiates Screen Urine Methadone Screen Acetaminophen < 10.0 L Ur Barbiturates Screen Ur Phencyclidine Scrn Ur Amphetamines Screen U Benzodiazepines Scrn U Oth Cocaine Metabols U Cannabinoids Screen Alcohol, Quantitative 06/18/18 06/18/18 06/18/18 12:34 14:40 14:40 WBC RBC Hgb Hct MCV MCH MCHC RDW Plt Count MPV Gran % Lymph % (Auto) [place] % (Auto) Eos % (Auto) Baso % (Auto) Gran # Lymph # (Auto) [place] # (Auto) Eos # (Auto) Baso # (Auto) Sodium Potassium Chloride Carbon Dioxide Anion Gap BUN Creatinine Est GFR ( Amer) Est GFR (Non-Af Amer) Random Glucose Fasting Glucose Calcium Magnesium Total Bilirubin AST ALT Alkaline Phosphatase Total Protein Albumin Globulin Albumin/Globulin Ratio Triglycerides Cholesterol LDL Cholesterol Direct HDL Cholesterol Free T4 TSH 3rd Generation Urine Color Yellow Urine Appearance Clear Urine pH 6.5 Ur Specific [place] <= 1.005 Urine Protein Negative Urine Glucose (UA) Negative Urine Ketones Negative Urine Blood Negative Urine Nitrate Negative Urine Bilirubin Negative Urine Urobilinogen 0.2 Ur Leukocyte Esterase Negative Salicylates Urine Opiates Screen Negative Urine Methadone Screen Negative Acetaminophen Ur Barbiturates Screen Negative Ur Phencyclidine Scrn Negative Ur Amphetamines Screen Negative U Benzodiazepines Scrn Positive H U Oth Cocaine Metabols Negative U Cannabinoids Screen Positive H Alcohol, Quantitative < 10 06/19/18 06/19/18 06:00 06:00 WBC RBC Hgb Hct MCV MCH MCHC RDW Plt Count MPV Gran % Lymph % (Auto) [place] % (Auto) Eos % (Auto) Baso % (Auto) Gran # Lymph # (Auto) [place] # (Auto) Eos # (Auto) Baso # (Auto) Sodium Potassium Chloride Carbon Dioxide Anion Gap BUN Creatinine Est GFR ( Amer) Est GFR (Non-Af Amer) Random Glucose Fasting Glucose 105 Calcium Magnesium Total Bilirubin AST ALT Alkaline Phosphatase Total Protein Albumin Globulin Albumin/Globulin Ratio Triglycerides 60 Cholesterol 152 LDL Cholesterol Direct 54 HDL Cholesterol 72 H Free T4 1.01 TSH 3rd Generation 2.29 Urine Color Urine Appearance Urine pH Ur Specific [place] Urine Protein Urine Glucose (UA) Urine Ketones Urine Blood Urine Nitrate Urine Bilirubin Urine Urobilinogen Ur Leukocyte Esterase Salicylates Urine Opiates Screen Urine Methadone Screen Acetaminophen Ur Barbiturates Screen Ur Phencyclidine Scrn Ur Amphetamines Screen U Benzodiazepines Scrn U Oth Cocaine Metabols U Cannabinoids Screen Alcohol, Quantitative Estimated Date of D/C: 06/25/18
--- NOTE | 2018-06-23 11:27 | PN ---
Copied To: Darius Montilla DO Attending MD: Darius Montilla DO DATE: 06/23/2018 SUBJECTIVE: I saw him resting comfortably in bed this morning. He slept well last night. He tells me he is feeling better mentally in Psychiatry. He is eating well, participating in much better spirits than when he came in. He is on Ambien, Ativan, Cogentin, Geodon, Nicoderm patch for smoking cessation, Tylenol, Xanax and Zyprexa. We discussed not smoking anymore, he understands the importance. PHYSICAL EXAMINATION: VITAL SIGNS: He has 98.1 temperature, 77 pulse, 116/67 blood pressure, 20 respiratory rate. HEENT: Head is atraumatic, normocephalic. HEART: Regular rate. LUNGS: Clear to auscultation. ABDOMEN: Soft. EXTREMITIES: No edema. LABORATORY DATA: He had labs when he came in, they were very good. ASSESSMENT AND PLAN: I encouraged him to participate in groups. I have discussed with him no more marijuana and no more smoking cigarettes, he understands that and as per Psychiatry and adjustment on medications, I do believe improving Darius Montlila DO MTDD
--- NOTE | 2018-06-24 10:05 | PCM.PYCHPN ---
Psychiatric Progress Note - Psychiatric Progress Note Patient seen today, length of contact: 30 min Problems Identified/Issues Discussed: History of Present Illness and Precipitating Events: Patient is a single 22 year old male with history of depression, anxiety and psychotic symptoms who was brought to the ED by his mother for depression and auditory hallucinations. Patient stated to staff that he was paranoid and believed people were following him. I met with patient at bedside this morning. He appears well groomed and oriented to month, location and year. Patient is guarded and minimizes events leading to current presentation on the psychiatric unit. Patient even denied drug or alcohol use though admitted use to staff on the unit. He indicates that he feels "good" and has some anxiety. Affect is constricted, odd and preoccupied. He denied any perceptual disturbance andp atient was not directly observed by this automatic typewriter inspector to be responding to internal stimuli. During his prior admission he reported that he drank excessively, he was drinking two bottles of vodka and a bottle of wine daily. He reported history of withdrawal seizures as well as DTs in the past. Patient also admitted to MJA use. Thus far he has been in fair behavioral control. Compliant with medications and denies side effects. Patient reports that he wasn't compliant with psychiatric medication [facility] however in the ER mother reported that patient was compliant with medications. Impulse control continues to be tenuous and behavior is unpredictable. I/J are poor. Patient is an unreliable historian due to multiple inconsistencies during interviews. PSYCHIATRIC HISTORY Patient reports one prior psychiatric hospitalization at [facility] [place] [place] from 09/05/17-09/10. He denies any other psychiatric admissions. Per ER report from that admission, patient stated that he has been hearing voices for 2 or 3 years that tell him to hurt himself or others. As per [place] [employer], patient was behaving erratically, screaming and then being despondent in cycles. He apparently had been rejected by a neighbor girl and writing satanic verses on that family's door. Patient was very psychotic and delusional on the unit. Frustration tolerance is poor and patient is prone to tantrums when needs aren't met immediately. Discharge medications from 08/2017 admission include Cogentin 1 mg PO AMHS Risperdal 2 mg PO AMHS Sonata 10 mg PO HS Patient and mother deferred on depot medication when discussed during 08/2017 admission Patient indicates that he did not f/u with a psychiatrist when he was discharged in 08/2017. However per ER report, mother stated that patient was depressed and hearing multiple voices despite compliance with psychiatric medications. He denies any history of suicide attempts. He reports that he did see a psychiatrist at [facility] in March 2017 however does not recall any medications prescribed to him except for Xanax. SOCIAL HISTORY Patient was born and raised in [place]. He's single. He has no children. He went up to freshman (patient reported sophomore during 05/2018 admission) year of high school and then quit. He's unemployed. Patient has a history of alcohol dependency associated with withdrawal seizures and DTs however denies any recent use. Denies drug use. Patient smokes a pack of cigarettes a day however defers on nicotine patch when this provider offers it to him. He was counseled about the morbidity and mortality risks of continued tobacco, alcohol and marijuana use. PROGRESS NOTE I met with patient at bedside again this morning. He appears well groomed and oriented to month, location and year. Patient remains superficial during my questioning. He reports that he feels good and denies having any complaints or concerns. Specifically denies depression, hallucinations or paranoia. Focus and memory show sustained improvement since admission. Affect is less constricted and preoccupied but not bizarre. He has not been observed to be responding to internal stimuli and continues to deny any perceptual disturbance. Relatedness is also improving. Patient reports that he feels a lot better since admission. Patient is compliant with medications and denies side effects. Staff have noted that patient is more visible and has been socializing with peers appropriately. He has also been participating in groups and demonstrating good behavioral control. I/J are improving. Diagnostic Results: Schizoaffective Disorder Polysubstance Abuse (MJA, Alcohol by history) r/o contribution of SIMD, SIPD Medication Change: No ( ) Medical Record Reviewed: Yes Mental Status Examination - Cognitive Function Orientation: Person, Place, Situation Memory: Impaired Attention: Poor (some improvement) Concentration: Poor (some improvement) Association: Loose Fund of Knowledge: Poor - Mood Mood: Neutral ("I feel better") - Affect Affect: Constricted (but more reactive and mood congruent) - Speech Speech: Appropriate - Formal Thought Process Formal Thought Process: No Impairment, Hallucinations (denied today) - Suicidal Ideation Suicidal Ideation: No - Homicidal Ideation Homicidal Ideation: No Goal/Treatment Plan - Goal/Treatment Plan Need for Continued Stay: Remain at risks for inpatient hospitalization, Severe depression anxiety, Discharge may exacerbated symptoms, Severe functional impairment Progress Toward Problem(s) and Goals/Treatment Plan: * group, milieu and supportive tx * Appreciate f/u and counseling by Dr. Montilla on 06/23/18 * No new labs results thus far today * Called [facility] ([phone]) at 12:45 pm today and authorized 15 day supply + 1 RF of the following medications: Xanax 1 mg po daily prn (patient was taking this medication approximately once daily on the unit) Cogentin 1 mg po bid and 1 mg HS Nicoderm CQ 21 mg patch Zyprexa 10 mg AM and 10 mg HS Ambien 10 mg po HS prn: insomnia * Vitals reviewed and noted below: Selected Entries 06/23/18 06/23/18 07:19 16:04 Temperature 98.1 F Pulse Rate 77 60 Respiratory 20 Rate Blood Pressure 116/67 106/58 L ER STUDIES 06/18/18 13:04 EKG reviewed, shows: normal sinus rhythm @ 84bpm ADMISSION LABS Laboratory Tests 06/18/18 06/18/18 06/18/18 12:34 12:34 12:34 WBC 5.0 RBC 4.59 Hgb 14.3 Hct 40.7 L MCV 88.7 MCH 31.2 MCHC 35.1 RDW 13.0 Plt Count 257 MPV 9.0 Gran % 59.7 Lymph % (Auto) 26.9 [place] % (Auto) 8.2 H Eos % (Auto) 4.0 Baso % (Auto) 1.2 Gran # 2.97 Lymph # (Auto) 1.3 [place] # (Auto) 0.4 Eos # (Auto) 0.2 Baso # (Auto) 0.06 Sodium 139 Potassium 4.1 Chloride 103 Carbon Dioxide 26 Anion Gap 14 BUN 16 Creatinine 1.0 Est GFR ( Amer) > 60 Est GFR (Non-Af Amer) > 60 Random Glucose 103 Fasting Glucose Calcium 9.6 Magnesium 2.0 Total Bilirubin 0.4 AST 18 ALT 13 Alkaline Phosphatase 94 Total Protein 7.4 Albumin 4.5 Globulin 2.9 Albumin/Globulin Ratio 1.5 Triglycerides Cholesterol LDL Cholesterol Direct HDL Cholesterol Free T4 TSH 3rd Generation Urine Color Urine Appearance Urine pH Ur Specific Mc[place]ath Urine Protein Urine Glucose (UA) Urine Ketones Urine Blood Urine Nitrate Urine Bilirubin Urine Urobilinogen Ur Leukocyte Esterase Salicylates < 1 L Urine Opiates Screen Urine Methadone Screen Acetaminophen < 10.0 L Ur Barbiturates Screen Ur Phencyclidine Scrn Ur Amphetamines Screen U Benzodiazepines Scrn U Oth Cocaine Metabols U Cannabinoids Screen Alcohol, Quantitative 06/18/18 06/18/18 06/18/18 12:34 14:40 14:40 WBC RBC Hgb Hct MCV MCH MCHC RDW Plt Count MPV Gran % Lymph % (Auto) [place] % (Auto) Eos % (Auto) Baso % (Auto) Gran # Lymph # (Auto) [place] # (Auto) Eos # (Auto) Baso # (Auto) Sodium Potassium Chloride Carbon Dioxide Anion Gap BUN Creatinine Est GFR ( Amer) Est GFR (Non-Af Amer) Random Glucose Fasting Glucose Calcium Magnesium Total Bilirubin AST ALT Alkaline Phosphatase Total Protein Albumin Globulin Albumin/Globulin Ratio Triglycerides Cholesterol LDL Cholesterol Direct HDL Cholesterol Free T4 TSH 3rd Generation Urine Color Yellow Urine Appearance Clear Urine pH 6.5 Ur Specific [place] <= 1.005 Urine Protein Negative Urine Glucose (UA) Negative Urine Ketones Negative Urine Blood Negative Urine Nitrate Negative Urine Bilirubin Negative Urine Urobilinogen 0.2 Ur Leukocyte Esterase Negative Salicylates Urine Opiates Screen Negative Urine Methadone Screen Negative Acetaminophen Ur Barbiturates Screen Negative Ur Phencyclidine Scrn Negative Ur Amphetamines Screen Negative U Benzodiazepines Scrn Positive H U Oth Cocaine Metabols Negative U Cannabinoids Screen Positive H Alcohol, Quantitative < 10 06/19/18 06/19/18 06:00 06:00 WBC RBC Hgb Hct MCV MCH MCHC RDW Plt Count MPV Gran % Lymph % (Auto) [place] % (Auto) Eos % (Auto) Baso % (Auto) Gran # Lymph # (Auto) [place] # (Auto) Eos # (Auto) Baso # (Auto) Sodium Potassium Chloride Carbon Dioxide Anion Gap BUN Creatinine Est GFR ( Amer) Est GFR (Non-Af Amer) Random Glucose Fasting Glucose 105 Calcium Magnesium Total Bilirubin AST ALT Alkaline Phosphatase Total Protein Albumin Globulin Albumin/Globulin Ratio Triglycerides 60 Cholesterol 152 LDL Cholesterol Direct 54 HDL Cholesterol 72 H Free T4 1.01 TSH 3rd Generation 2.29 Urine Color Urine Appearance Urine pH Ur Specific [place] Urine Protein Urine Glucose (UA) Urine Ketones Urine Blood Urine Nitrate Urine Bilirubin Urine Urobilinogen Ur Leukocyte Esterase Salicylates Urine Opiates Screen Urine Methadone Screen Acetaminophen Ur Barbiturates Screen Ur Phencyclidine Scrn Ur Amphetamines Screen U Benzodiazepines Scrn U Oth Cocaine Metabols U Cannabinoids Screen Alcohol, Quantitative Estimated Date of D/C: 06/25/18
--- NOTE | 2018-06-24 13:17 | PN ---
Copied To: Darius Montilla DO Attending MD: Darius Montilla DO DATE: 06/24/2018 SUBJECTIVE: I saw Edilson resting comfortably. He is feeling well. He was told he was being discharged on Thursday and he understands that. He is comfortable with that. He states he is feeling better. He is on Ambien, Ativan, Cogentin, Geodon, Nicoderm patch which I reordered because he took it off, Tylenol, Xanax and Zyprexa. PHYSICAL EXAMINATION: VITAL SIGNS: He has a 97.4 temperature, 71 pulse, 116/62 blood pressure, 20 respiratory rate. HEENT: Head is atraumatic, normocephalic. HEART: Regular rate. LUNGS: Decreased breath sounds, but clear. ABDOMEN: Soft. EXTREMITIES: No edema. ASSESSMENT AND PLAN: He is, for the most part, comfortable, walking around, trying to participate and improving. He is more animated. He is very calm. As per Psychiatry, I believe the plan might be to discharge him tomorrow. We will follow. I encouraged him to participate and also, discussed no more smoking when he leaves the facility. We also discussed no more marijuana cigarettes. He has schizophrenia, bipolar, auditory hallucinations, depression, smoking and marijuana abuse. Darius Montilla DO MTDD
[2018-06-25 07:18] VITALS: BP 133/63; PULSE 81; TEMP 97.9
--- NOTE | 2018-06-25 11:19 | PCM.PYCHDC ---
Mental Status Examination - Mental Status Examination Orientation: Person, Place, Situation Memory: Intact Mood: Neutral Affect: Broad Speech: Appropriate Attention: WNL Concentration: WNL Association: WNL Fund of Knowledge: WNL Formal Thought Process: No Impairment Description of patient's judgement and insight: Fair and improved I/J Psychotic Thoughts and Behaviors: Sustained resolution of paranoia, delusions and hallucinations on the unit. Patient denies all aforementioned symptoms on the day of discharge. Suicidal Ideation: No Current Homicidal Ideation?: No Discharge Summary - Discharge Note Reason for Hospitalization: Patient is a single 22 year old male with history of depression, anxiety and psychotic symptoms who was brought to the ED by his mother for depression and auditory hallucinations. Patient stated to staff that he was paranoid and believed people were following him. Psychiatric History (includes Medical, Family, Personal Hx): SEE HPI Laboratory Data: ER STUDIES 06/18/18 13:04 EKG reviewed, shows: normal sinus rhythm @ 84bpm Laboratory Tests 06/18/18 06/18/18 06/18/18 12:34 12:34 12:34 WBC 5.0 RBC 4.59 Hgb 14.3 Hct 40.7 L MCV 88.7 MCH 31.2 MCHC 35.1 RDW 13.0 Plt Count 257 MPV 9.0 Gran % 59.7 Lymph % (Auto) 26.9 [place] % (Auto) 8.2 H Eos % (Auto) 4.0 Baso % (Auto) 1.2 Gran # 2.97 Lymph # (Auto) 1.3 [place] # (Auto) 0.4 Eos # (Auto) 0.2 Baso # (Auto) 0.06 Sodium 139 Potassium 4.1 Chloride 103 Carbon Dioxide 26 Anion Gap 14 BUN 16 Creatinine 1.0 Est GFR ( Amer) > 60 Est GFR (Non-Af Amer) > 60 Random Glucose 103 Fasting Glucose Calcium 9.6 Magnesium 2.0 Total Bilirubin 0.4 AST 18 ALT 13 Alkaline Phosphatase 94 Total Protein 7.4 Albumin 4.5 Globulin 2.9 Albumin/Globulin Ratio 1.5 Triglycerides Cholesterol LDL Cholesterol Direct HDL Cholesterol Free T4 TSH 3rd Generation Urine Color Urine Appearance Urine pH Ur Specific [place] Urine Protein Urine Glucose (UA) Urine Ketones Urine Blood Urine Nitrate Urine Bilirubin Urine Urobilinogen Ur Leukocyte Esterase Salicylates < 1 L Urine Opiates Screen Urine Methadone Screen Acetaminophen < 10.0 L Ur Barbiturates Screen Ur Phencyclidine Scrn Ur Amphetamines Screen U Benzodiazepines Scrn U Oth Cocaine Metabols U Cannabinoids Screen Alcohol, Quantitative RPR 06/18/18 06/18/18 06/18/18 12:34 14:40 14:40 WBC RBC Hgb Hct MCV MCH MCHC RDW Plt Count MPV Gran % Lymph % (Auto) [place] % (Auto) Eos % (Auto) Baso % (Auto) Gran # Lymph # (Auto) [place] # (Auto) Eos # (Auto) Baso # (Auto) Sodium Potassium Chloride Carbon Dioxide Anion Gap BUN Creatinine Est GFR ( Amer) Est GFR (Non-Af Amer) Random Glucose Fasting Glucose Calcium Magnesium Total Bilirubin AST ALT Alkaline Phosphatase Total Protein Albumin Globulin Albumin/Globulin Ratio Triglycerides Cholesterol LDL Cholesterol Direct HDL Cholesterol Free T4 TSH 3rd Generation Urine Color Yellow Urine Appearance Clear Urine pH 6.5 Ur Specific [place] <= 1.005 Urine Protein Negative Urine Glucose (UA) Negative Urine Ketones Negative Urine Blood Negative Urine Nitrate Negative Urine Bilirubin Negative Urine Urobilinogen 0.2 Ur Leukocyte Esterase Negative Salicylates Urine Opiates Screen Negative Urine Methadone Screen Negative Acetaminophen Ur Barbiturates Screen Negative Ur Phencyclidine Scrn Negative Ur Amphetamines Screen Negative U Benzodiazepines Scrn Positive H U Oth Cocaine Metabols Negative U Cannabinoids Screen Positive H Alcohol, Quantitative < 10 RPR 06/19/18 06/19/18 06/19/18 06:00 06:00 06:00 WBC RBC Hgb Hct MCV MCH MCHC RDW Plt Count MPV Gran % Lymph % (Auto) [place] % (Auto) Eos % (Auto) Baso % (Auto) Gran # Lymph # (Auto) [place] # (Auto) Eos # (Auto) Baso # (Auto) Sodium Potassium Chloride Carbon Dioxide Anion Gap BUN Creatinine Est GFR ( Amer) Est GFR (Non-Af Amer) Random Glucose Fasting Glucose 105 Calcium Magnesium Total Bilirubin AST ALT Alkaline Phosphatase Total Protein Albumin Globulin Albumin/Globulin Ratio Triglycerides 60 Cholesterol 152 LDL Cholesterol Direct 54 HDL Cholesterol 72 H Free T4 1.01 TSH 3rd Generation 2.29 Urine Color Urine Appearance Urine pH Ur Specific [place] Urine Protein Urine Glucose (UA) Urine Ketones Urine Blood Urine Nitrate Urine Bilirubin Urine Urobilinogen Ur Leukocyte Esterase Salicylates Urine Opiates Screen Urine Methadone Screen Acetaminophen Ur Barbiturates Screen Ur Phencyclidine Scrn Ur Amphetamines Screen U Benzodiazepines Scrn U Oth Cocaine Metabols U Cannabinoids Screen Alcohol, Quantitative RPR Nonreactive Consultations:: List each consultation separately and include: 1. Reason for request. 2. Findings. 3. Follow-up Consultations: Consultation by Dr. Montilla daily 06/19/18-06/24/18 Summary of Hospital Course include:: 1. Description of specific treatment plan utilized for patients during their course of treatmen. 2. Summarize the time- course for resolution of acute symptoms and/or regressed behaviors. 3. Describe issues identified and worked on during hospitalization. 4. Describe medication utilized. 5. Describe medical problems identified and treated. 6. Reassessment of suicide risk Summary of Hospital Course: Patient is a single 22 year old male with history of depression, anxiety and psychotic symptoms who was brought to the ED by his mother for depression and auditory hallucinations. Patient stated to staff that he was paranoid and believed people were following him. I met with patient at bedside this morning. He appears well groomed and oriented to month, location and year. Patient is guarded and minimizes events leading to current presentation on the psychiatric unit. Patient even denied drug or alcohol use though admitted use to staff on the unit. He indicates that he feels "good" and has some anxiety. Affect is constricted, odd and preoccupied. He denied any perceptual disturbance andp atient was not directly observed by this senior writer to be responding to internal stimuli. During his prior admission he reported that he drank excessively, he was drinking two bottles of vodka and a bottle of wine daily. He reported history of withdrawal seizures as well as DTs in the past. Patient also admitted to MJA use. Thus far he has been in fair behavioral control. Compliant with medications and denies side effects. 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 Impulse control continues to be tenuous and behavior is unpredictable. I/J are poor. Patient is an unreliable historian due to multiple inconsistencies during interviews. PSYCHIATRIC HISTORY Patient reports one prior psychiatric hospitalization at [facility] from 09/05/17-09/10. He denies any other psychiatric admissions. Per ER report from that admission, patient stated that he has been hearing voices for 2 or 3 years that tell him to hurt himself or others. As per [place] [employer], patient was behaving erratically, screaming and then being despondent in cycles. He apparently had been rejected by a neighbor girl and writing satanic verses on that family's door. Patient was very psychotic and delusional on the unit. Frustration tolerance is poor and patient is prone to tantrums when needs aren't met immediately. Discharge medications from 08/2017 admission include Cogentin 1 mg PO AMHS Risperdal 2 mg PO AMHS Sonata 10 mg PO HS Patient and mother deferred on depot medication when discussed during 08/2017 admission Patient indicates that he did not f/u with a psychiatrist when he was discharged in 08/2017. However per ER report, mother stated that patient was depressed and hearing multiple voices despite compliance with psychiatric medications. He denies any history of suicide attempts. He reports that he did see a psychiatrist at [facility] in March 2017 however does not recall any medications prescribed to him except for Xanax. SOCIAL HISTORY Patient was born and raised in [place]. He's single. He has no children. He went up to freshman (patient reported sophomore during 05/2018 admission) year of high school and then quit. He's unemployed. Patient has a history of alcohol dependency associated with withdrawal seizures and DTs however denies any recent use. Denies drug use. Patient smokes a pack of cigarettes a day however defers on nicotine patch when this provider offers it to him. He was counseled about the morbidity and mortality risks of continued tobacco, alcohol and marijuana use. DISCHARGE NOTE 06/25/18 I interviewed patient at bedside to assess continued stability for discharge. Patient is alert and well-oriented to month, year and circumstances. Eye contact is fair and much improved since admission. Patient consistently reports improvement in mood and perceptual disturbance. He denies any suicidal thoughts or thoughts to harm others. Affect is calm and appropriately reactive. Patient denies hallucinations ("I have had a hallucination in 5 days!" and is not responding to internal stimuli. Thought process is clear and coherent. Patient feels comfortable with discharge today and denies any new concerns. Denies acute discomfort or pain. Tolerating medications and denies any issues with them. Delusions and paranoia were not elicited on day of discharge. Patient is future oriented and plans to travel to [place] for 2 weeks. - Diagnosis (1) Schizophrenia Status: Chronic Priority: Medium (2) Polysubstance abuse Status: Acute Priority: Medium - Final Diagnosis (DSM 5) Condition upon Discharge: STABLE DSM 5: Schizoaffective Disorder Polysubstance Abuse (MJA, Alcohol by history) r/o contribution of SIMD, SIPD Disposition: HOME/ ROUTINE Follow-up Treatment Plan: * PLEASE REFER TO SW NOTE FOR AFTERCARE PLANS. Patient is traveling to [place] in the PM today. * Called [facility] ([phone]) at 12:45 pm 06/24/18 and authorized 15 day supply + 1 RF of the following medications: Xanax 1 mg po daily prn (patient was taking this medication approximately once daily on the unit) Cogentin 1 mg po bid and 1 mg HS Nicoderm CQ 21 mg patch Zyprexa 10 mg AM and 10 mg HS Ambien 10 mg po HS prn: insomnia ADMISSION LABS Laboratory Tests 06/18/18 06/18/18 06/18/18 12:34 12:34 12:34 WBC 5.0 RBC 4.59 Hgb 14.3 Hct 40.7 L MCV 88.7 MCH 31.2 MCHC 35.1 RDW 13.0 Plt Count 257 MPV 9.0 Gran % 59.7 Lymph % (Auto) 26.9 [place] % (Auto) 8.2 H Eos % (Auto) 4.0 Baso % (Auto) 1.2 Gran # 2.97 Lymph # (Auto) 1.3 [place] # (Auto) 0.4 Eos # (Auto) 0.2 Baso # (Auto) 0.06 Sodium 139 Potassium 4.1 Chloride 103 Carbon Dioxide 26 Anion Gap 14 BUN 16 Creatinine 1.0 Est GFR ( Amer) > 60 Est GFR (Non-Af Amer) > 60 Random Glucose 103 Fasting Glucose Calcium 9.6 Magnesium 2.0 Total Bilirubin 0.4 AST 18 ALT 13 Alkaline Phosphatase 94 Total Protein 7.4 Albumin 4.5 Globulin 2.9 Albumin/Globulin Ratio 1.5 Triglycerides Cholesterol LDL Cholesterol Direct HDL Cholesterol Free T4 TSH 3rd Generation Urine Color Urine Appearance Urine pH Ur Specific [place] Urine Protein Urine Glucose (UA) Urine Ketones Urine Blood Urine Nitrate Urine Bilirubin Urine Urobilinogen Ur Leukocyte Esterase Salicylates < 1 L Urine Opiates Screen Urine Methadone Screen Acetaminophen < 10.0 L Ur Barbiturates Screen Ur Phencyclidine Scrn Ur Amphetamines Screen U Benzodiazepines Scrn U Oth Cocaine Metabols U Cannabinoids Screen Alcohol, Quantitative 06/18/18 06/18/18 06/18/18 12:34 14:40 14:40 WBC RBC Hgb Hct MCV MCH MCHC RDW Plt Count MPV Gran % Lymph % (Auto) [place] % (Auto) Eos % (Auto) Baso % (Auto) Gran # Lymph # (Auto) [place] # (Auto) Eos # (Auto) Baso # (Auto) Sodium Potassium Chloride Carbon Dioxide Anion Gap BUN Creatinine Est GFR ( Amer) Est GFR (Non-Af Amer) Random Glucose Fasting Glucose Calcium Magnesium Total Bilirubin AST ALT Alkaline Phosphatase Total Protein Albumin Globulin Albumin/Globulin Ratio Triglycerides Cholesterol LDL Cholesterol Direct HDL Cholesterol Free T4 TSH 3rd Generation Urine Color Yellow Urine Appearance Clear Urine pH 6.5 Ur Specific [place] <= 1.005 Urine Protein Negative Urine Glucose (UA) Negative Urine Ketones Negative Urine Blood Negative Urine Nitrate Negative Urine Bilirubin Negative Urine Urobilinogen 0.2 Ur Leukocyte Esterase Negative Salicylates Urine Opiates Screen Negative Urine Methadone Screen Negative Acetaminophen Ur Barbiturates Screen Negative Ur Phencyclidine Scrn Negative Ur Amphetamines Screen Negative U Benzodiazepines Scrn Positive H U Oth Cocaine Metabols Negative U Cannabinoids Screen Positive H Alcohol, Quantitative < 10 06/19/18 06/19/18 06:00 06:00 WBC RBC Hgb Hct MCV MCH MCHC RDW Plt Count MPV Gran % Lymph % (Auto) [place] % (Auto) Eos % (Auto) Baso % (Auto) Gran # Lymph # (Auto) [place] # (Auto) Eos # (Auto) Baso # (Auto) Sodium Potassium Chloride Carbon Dioxide Anion Gap BUN Creatinine Est GFR ( Amer) Est GFR (Non-Af Amer) Random Glucose Fasting Glucose 105 Calcium Magnesium Total Bilirubin AST ALT Alkaline Phosphatase Total Protein Albumin Globulin Albumin/Globulin Ratio Triglycerides 60 Cholesterol 152 LDL Cholesterol Direct 54 HDL Cholesterol 72 H Free T4 1.01 TSH 3rd Generation 2.29 Urine Color Urine Appearance Urine pH Ur Specific [place] Urine Protein Urine Glucose (UA) Urine Ketones Urine Blood Urine Nitrate Urine Bilirubin Urine Urobilinogen Ur Leukocyte Esterase Salicylates Urine Opiates Screen Urine Methadone Screen Acetaminophen Ur Barbiturates Screen Ur Phencyclidine Scrn Ur Amphetamines Screen U Benzodiazepines Scrn U Oth Cocaine Metabols U Cannabinoids Screen Alcohol, Quantitative Prescriptions/Medication Reconciliation: ALPRAZolam [Xanax] 1 mg PO DAILY PRN #14 tab PRN Reason: Anxiety Benztropine [Cogentin] 1 mg PO BID 14 Days #14 tab Nicotine 21 mg/24 hr [Nicoderm Cq] 1 patch TD DAILY 14 Days #14 patch OLANZapine [Zyprexa] 10 mg PO AMHS 14 Days #28 tab - Smoking Cessation Smoking Cessation Medication prescribed: Yes - Antipsychotic Medications Pt discharged on 2 or more routine antipsychotic medications: No
--- NOTE | 2018-06-25 11:27 | PN ---
Copied To: Darius Montilla DO Attending MD: Darius Montilla DO DATE: 06/25/2018 SUBJECTIVE: I saw him resting comfortably in bed. He slept well. He is eating well. He is in good spirits. He tells me he sleep today because he is going to go to [place] with his family. He will take his medications there. He has got a lot of good family support. He is schizophrenic with bipolar, auditory hallucinations, depression, smoking cigarettes and marijuana. We discussed not doing that ever again. He understands that he has got Ambien, Ativan, Cogentin, Geodon, Nicoderm patch, Tylenol, Xanax and Zyprexa. PHYSICAL EXAMINATION: VITAL SIGNS: He has a 97.9 temperature, 81 pulse, 133/63 blood pressure, 20 respiratory rate. HEENT: Head is atraumatic, normocephalic. HEART: Regular rate. LUNGS: Clear to auscultation. ABDOMEN: Soft. EXTREMITIES: No edema. I am glad he is leaving the facility. Hopefully, he will do very well in [place]. He understands what he has to do and as per Psychiatry. Darius Montilla DO MTDD
== END 2018-06-25 10:45 | disposition home or self-care (01) | DRG 885 ==
LOC: ED 12:23 → ERH 15:02 → PSYC 16:23
PROVIDERS: ADMIT Psychiatry & Neurology Psychiatry; ATTEND Psychiatry & Neurology Psychiatry
DX: F25.9 Schizoaffective disorder, unspecified (principal); F31.9 Bipolar disorder, unspecified; F17.210 Nicotine dependence, cigarettes, uncomplicated; F12.10 Cannabis abuse, uncomplicated; F41.9 Anxiety disorder, unspecified; F10.21 Alcohol dependence, in remission

== ENCOUNTER 2018-12-03 15:43 | Outpatient (CLI) | payer MEDICARE, MEDICAID, OTHER | END 2018-12-03 15:44 | disposition home or self-care (01) | LOC: RAD 15:43 ==

== ENCOUNTER 2019-02-16 20:09 | Observation (INO) | payer MEDICARE, OTHER ==
[2019-02-16] MEDS ORDERED: Sodium Chloride 0.9% 1,000 ML IV STA ×2 (21:27→22:38)
[2019-02-16 21:44] LABS: BASO # 0.03 K/mm3 (0.0-2.0); BASO % 0.2 % (0.0-3.0); EOS # 0.1 (0.0-0.7); EOS % 0.7 % (1.5-5.0); HEMOGLOBIN 14.9 g/dL (14.0-18.0); LYMPH # 0.9 (1.2-3.4); LYMPH % 6.7 % (22.0-35.0); MEAN CELL VOLUME 90.9 fl (80.0-105.0); MEAN CORPUSCULAR HEMOGLOBIN 31.7 pg (25.0-35.0); MEAN CORPUSCULAR HGB CONC 34.9 g/dl (31.0-37.0); MONO # 0.6 (0.1-0.6); MONO % 4.1 % (1.0-6.0); RBC 4.7 10^6/uL (3.5-6.1); RED CELL DISTRIBUTION WIDTH 13.7 % (11.5-14.5); WHITE BLOOD COUNT 13.5 10^3/uL (4.5-11.0)
[2019-02-16 21:54] LABS: ACETAMINOPHEN < 10.0 ug/ml (10.0-20.0); SALICYLATE < 1 mg/dL (2.0-20.0)
[2019-02-16 21:55] LABS: ALB/GLOB RATIO 1.5 (1.1-1.8); ALBUMIN 4.9 g/dL (3.0-4.8); ALT/SGPT 31 U/L (7-56); AST/SGOT 50 U/L (17-59); BLOOD UREA NITROGEN 14 mg/dL (7-21); GFR NON-AFRICAN AMERICAN > 60
[2019-02-16 22:11] LABS: CK-MB 3.9 ng/mL (0.0-3.6)
[2019-02-16 22:57] LABS: URINE APPEARANCE CLEAR (CLEAR); URINE BILIRUBIN NEGATIVE (NEGATIVE); URINE BLOOD NEGATIVE (NEGATIVE); URINE COLOR YELLOW (YELLOW); URINE GLUCOSE (UA) NEGATIVE (NEGATIVE); URINE LEUKOCYTE ESTERASE NEGATIVE Leu/uL (NEGATIVE); URINE PROTEIN NEGATIVE mg/dL (<30 mg/dL); URINE UROBILINOGEN 0.2 E.U./dL (<1 E.U./dL)
[2019-02-16 23:25] LABS: BARBITURATES, UR NEGATIVE (NEGATIVE); BENZODIAZEPINES, UR POSITIVE (NEGATIVE); OPIATES, UR NEGATIVE (NEGATIVE); PHENCYCLIDINE, UR NEGATIVE (NEGATIVE)
--- NOTE | 2019-02-17 01:29 | ED PDOC ---
Arrival/HPI - General Chief Complaint: Anxiety Time Seen by Provider: 02/16/19 20:34 Historian: Patient - History of Present Illness Narrative History of Present Illness (Text): Edilson Rogers is a 23 year old male, whose past medical history includes anxiety and schizophrenia, who presents to the ED complaining of 2 days history of feeling very anxious and feeling like his muscle are "tight." Patient states today his symptoms are worse and notes he has been shaking uncontrollably. Patient states that has happened to him before, but not as severe. Patient admits to smoking marijuana earlier in the day. Patient denies any chest pain, shortness of breath, abdominal pain, nausea, vomiting, diarrhea, headache, dizziness, weakness, or any other complaints. Symptom Onset: Gradual Symptom Course: Unchanged Activities at Onset: Light Context: Home Past Medical History - Provider Review Nursing Documentation Reviewed: Yes Primary Care Physician: NO FAMILY PROVIDER - Past History Past History: No Previous - Infectious Disease Hx of Infectious Diseases: None - Tetanus Immunization Tetanus Immunization: Up to Date - Cardiac Hx Cardiac Disorders: No - Pulmonary Hx Respiratory Disorders: No - Neurological Hx Neurological Disorder: No - HEENT Hx HEENT Disorder: No - Renal Hx Renal Disorder: No - Endocrine/Metabolic Hx Endocrine Disorders: No - Hematological/Oncological Hx Blood Disorders: No - Integumentary Hx Dermatological Disorder: No - Musculoskeletal/Rheumatological Hx Musculoskeletal Disorders: No - Gastrointestinal Hx Gastrointestinal Disorders: No - Genitourinary/Gynecological Hx Genitourinary Disorders: No - Psychiatric Hx Psychophysiologic Disorder: Yes Hx Anxiety: Yes Hx Depression: Yes Hx Schizophrenia: Yes Hx Substance Use: Yes - Past Surgical History Past Surgical History: No Previous - Anesthesia Hx Anesthesia: No Hx Anesthesia Reactions: No Hx Malignant Hyperthermia: No - Suicidal Assessment Feels Threatened In Home Enviroment: No Family/Social History - Physician Review Nursing Documentation Reviewed: Yes Family/Social History: Unknown Family HX Smoking Status: Heavy Smoker > 10 Cigarettes Daily Hx Alcohol Use: Yes Frequency of alcohol use: Socially Hx Substance Use: Yes Substance used: marijuana Hx Substance Use Treatment: No Allergies/Home Meds Allergies/Adverse Reactions: Allergies No Known Allergies Allergy (Verified 06/18/18 20:32) Home Medications: Home Meds Medication Instructions Recorded Confirmed Unobtainable 02/17/19 02/17/19 Review of Systems - Physician Review All systems were reviewed & negative as marked: Yes - Review of Systems Constitutional: Normal. absent: Fevers Eyes: Normal ENT: Normal Respiratory: Normal. absent: SOB, Cough Cardiovascular: Normal. absent: Chest Pain Gastrointestinal: Normal. absent: Abdominal Pain, Diarrhea, Nausea, Vomiting Genitourinary Male: Normal. absent: Dysuria, Frequency, Hematuria, Urinary Output Changes Musculoskeletal: Other (+muscle tightness) Skin: Normal. absent: Rash Neurological: Normal. absent: Headache, Dizziness Endocrine: Normal Hemo/Lymphatic: Normal Psychiatric: Anxiety. absent: Depression, Suicidal Ideation Physical Exam Vital Signs Reviewed: Yes Vital Signs Temp Pulse Resp BP Pulse Ox 02/17/19 00:40 99 H 18 99 02/16/19 23:32 100 H 18 100 02/16/19 20:29 98.1 F 122 H 24 132/71 97 Temperature: Afebrile Blood Pressure: Normal Pulse: Tachycardic Respiratory Rate: Normal Appearance: Positive for: Well-Appearing, Non-Toxic, Comfortable, Other (Anxious-appearing) Pain Distress: None Mental Status: Positive for: Alert and Oriented X 3 - Systems Exam Head: Present: Atraumatic, Normocephalic Pupils: Present: PERRL Extroacular Muscles: Present: EOMI Conjunctiva: Present: Normal Mouth: Present: Moist Mucous Membranes Neck: Present: Normal Range of Motion Respiratory/Chest: Present: Clear to Auscultation, Good Air Exchange. No: Respiratory Distress, Accessory Muscle Use Cardiovascular: Present: Normal S1, S2, Tachycardic. No: Murmurs Abdomen: No: Tenderness, Distention, Peritoneal Signs Back: Present: Normal Inspection Upper Extremity: Present: Normal Inspection. No: Cyanosis, Edema Lower Extremity: Present: Normal Inspection. No: Edema Neurological: Present: GCS=15, CN II-XII Intact, Speech Normal, Motor Func Grossly Intact, Normal Sensory Function, Other (Tremulous) Skin: Present: Warm, Dry, Normal Color. No: Rashes Psychiatric: Present: Alert, Oriented x 3, Normal Insight, Normal Concentration, Anxious (Anxious appearing) Medical Decision Making ED Course and Treatment: 23 year old male complaining of anxiety and muscle tightness x 2 days Plan: -- EKG -- Chest X-ray -- CBC, CMP -- CKMB -- Alcohol level -- Urinalysis, urine drug screen -- IV fluids -- Reassess and disposition Prior Visits: Notes and results from previous visits were reviewed. Progress Notes: Labs reviewed. CPK level was 1094, pt given 2 L of IV fluids and Ativan 1 mg. cxr: wnl UDS; + marijuana and benzos ekg; accelerated junctional rhythm [address] elevations QTC [address] Dunlap, requests pt go to hospitalist service. Spoke with Dr. Catalan, who is aware and agrees with plan. Accepts pt in to hospitalist service. Pt admitted to Med Surg for rhabdomyolysis. residential real estate sales manager sed special education teacher notified. All aspects of this case were discussed the attending of record. impression; rhabdomyolysis admit to med/surg Reassessment Condition: Re-examined, Improved - Lab Interpretations Lab Results: Total Bilirubin 0.7 mg/dL (0.2-1.3) 02/16/19 21:34 AST 50 U/L (17-59) 02/16/19 21:34 ALT 31 U/L (7-56) 02/16/19 21:34 Alkaline Phosphatase 144 U/L (38-126) H D 02/16/19 21:34 Total Protein 8.3 g/dL (5.8-8.3) 02/16/19 21:34 Albumin 4.9 g/dL (3.0-4.8) H 02/16/19 21:34 Globulin 3.4 gm/dL 02/16/19 21:34 Albumin/Globulin Ratio 1.5 (1.1-1.8) 02/16/19 21:34 Urine Color Yellow (YELLOW) 02/16/19 22:48 Urine Appearance Clear (CLEAR) 02/16/19 22:48 Urine pH 6.0 (4.7-8.0) 02/16/19 22:48 Ur Specific [place] 1.010 (1.005-1.035) 02/16/19 22:48 Urine Protein Negative mg/dL (<30 mg/dL) 02/16/19 22:48 Urine Glucose (UA) Negative mg/dL (NEGATIVE) 02/16/19 22:48 Urine Ketones Negative mg/dL (NEGATIVE) 02/16/19 22:48 Urine Blood Negative (NEGATIVE) 02/16/19 22:48 Urine Nitrate Negative (NEGATIVE) 02/16/19 22:48 Urine Bilirubin Negative (NEGATIVE) 02/16/19 22:48 Urine Urobilinogen 0.2 E.U./dL (<1 E.U./dL) 02/16/19 22:48 Ur Leukocyte Esterase Negative Fani/uL (NEGATIVE) 02/16/19 22:48 - RAD Interpretation Radiology Orders: 02/16/19 21:27 CHEST PORTABLE [RAD] Stat - Medication Orders Current Medication Orders: Discontinued Medications Sodium Chloride (Sodium Chloride 0.9%) 1,000 mls @ 999 mls/hr IV .Q1H1M STA Stop: 02/16/19 22:27 Last Admin: 02/16/19 21:44 Dose: 999 mls/hr eMAR Start Stop Document 02/16/19 21:44 SS (Rec: 02/16/19 21:44 SS [id number]) Intravenous Solution Start Date 02/16/19 Start Time 21:44 End Date 02/16/19 End time 22:44 Total Infusion Time 60 Sodium Chloride (Sodium Chloride 0.9%) 1,000 mls @ 999 mls/hr IV .Q1H1M STA Stop: 02/16/19 23:38 Lorazepam (Ativan) 1 mg IVP ONCE ONE; Protocol Stop: 02/16/19 21:27 Last Admin: 02/16/19 21:44 Dose: 1 mg IVP Administration Document 02/16/19 21:44 SS (Rec: 02/16/19 21:44 SS [id number]) Charges for Administration # of IVP Administrations 1 - Scribe Statement The provider has reviewed the documentation as recorded by the Usha Conner Provider Scribe Attestation: All medical record entries made by the Amarilisibdougie were at my direction and personally dictated by me. I have reviewed the chart and agree that the record accurately reflects my personal performance of the history, physical exam, medical decision making, and the department course for this patient. I have also personally directed, reviewed, and agree with the discharge instructions and disposition. Disposition/Present on Arrival - Present on Arrival Any Indicators Present on Arrival: No History of DVT/PE: No History of Uncontrolled Diabetes: No Urinary Catheter: No History of Decub. Ulcer: No History Surgical Site Infection Following: None - Disposition Have Diagnosis and Disposition been Completed?: Yes Diagnosis: Rhabdomyolysis, Anxiety Disposition: HOSPITALIZED Disposition Time: 22:35 Patient Plan: Observation Condition: FAIR
[2019-02-17 01:33] VITALS: O2SAT 98
--- NOTE | 2019-02-17 02:13 | CP.PCM.HP ---
<Chidi Dorsey - Last Filed: 02/17/19 03:37> History of Present Illness - History of Present Illness History of Present Illness: PGY-1 Medicine H&P for Dr. Catalan CC: Anxiety HPI: Patient is a 23 year old male with a past medical history of anxiety and schizophrenia, presenting with anxiety. He states that he was feeling very anxious this morning and took 2 doses of his prescribed Xanax without much relief. He admits to having anxiety attacks before but not as severe. Patient admits to marijuana earlier in the day. In the ED, it was found that his creatine kinase levels were elevated. Patient states that he works out vigorously last week and felt that his body is sore. He admits to go running and boxing for 3-4 hours at a time. He denies having any suicidal or homicidal ideation. He further denies any fevers, chills, chest pain, shortness of breath, abdominal pain, nausea, vomiting, diarrhea, headache, dizziness, weakness, or any other complaints. 12-point ROS reviewed and negative except mentioned in HPI. PMHx: Anxiety and schizophrenia PSHx: denies Allergies: NKDA Social Hx: 1 PPD tobacco use for 5 years. Drinks 1 bottle of wine once or twice per week. Smokes marijuana once a week. Patient is currently unemployed, lives at home with family. Family Hx: Father had liver failure. Denies any psychiatric illnesses in the family. Medications: Xanax PMD: Dr. Dunlap Psychiatrist: Dr. Olivarez Present on Admission - Present on Admission Any Indicators Present on Admission: No History of DVT/PE: No History of Uncontrolled Diabetes: No Urinary Catheter: No Decubitus Ulcer Present: No Past Patient History - Infectious Disease Hx of Infectious Diseases: None - Tetanus Immunizations Tetanus Immunization: Up to Date - Past Social History Smoking Status: Heavy Smoker > 10 Cigarettes Daily - CARDIAC Hx Cardiac Disorders: No - PULMONARY Hx Respiratory Disorders: No - NEUROLOGICAL Hx Neurological Disorder: No - HEENT Hx HEENT Problems: No - RENAL Hx Chronic Kidney Disease: No - ENDOCRINE/METABOLIC Hx Endocrine Disorders: No - HEMATOLOGICAL/ONCOLOGICAL Hx Blood Disorders: No - INTEGUMENTARY Hx Dermatological Problems: No - MUSCULOSKELETAL/RHEUMATOLOGICAL Hx Musculoskeletal Disorders: No - GASTROINTESTINAL Hx Gastrointestinal Disorders: No - GENITOURINARY/GYNECOLOGICAL Hx Genitourinary Disorders: No - PSYCHIATRIC Hx Psychophysiologic Disorder: Yes Hx Anxiety: Yes Hx Depression: Yes Hx Schizophrenia: Yes Hx Substance Use: Yes - SURGICAL HISTORY Hx Surgeries: No - ANESTHESIA Hx Anesthesia: No Hx Anesthesia Reactions: No Hx Malignant Hyperthermia: No Meds Allergies/Adverse Reactions: Allergies Allergy/AdvReac Type Severity Reaction Status Date / Time No Known Allergies Allergy Verified 06/18/18 20:32 Physical Exam - Constitutional Appears: Well, Non-toxic, No Acute Distress - Head Exam Head Exam: ATRAUMATIC, NORMAL INSPECTION, NORMOCEPHALIC - Eye Exam Eye Exam: EOMI, Normal appearance, PERRL Pupil Exam: NORMAL ACCOMODATION - ENT Exam ENT Exam: Mucous Membranes Moist - Neck Exam Neck exam: Positive for: Normal Inspection - Respiratory Exam Respiratory Exam: Clear to Auscultation Bilateral, NORMAL BREATHING PATTERN. absent: Rales, Rhonchi, Wheezes, Respiratory Distress - Cardiovascular Exam Cardiovascular Exam: Tachycardia, +S1, +S2. absent: Gallop, Rubs, Systolic Mur mur - GI/Abdominal Exam GI & Abdominal Exam: Normal Bowel Sounds, Soft. absent: Tenderness - Extremities Exam Extremities exam: Positive for: normal inspection. Negative for: calf tenderness, pedal edema - Back Exam Back exam: absent: CVA tenderness (L), CVA tenderness (R), paraspinal tenderness, vertebral tenderness - Neurological Exam Neurological exam: Alert, CN II-XII Intact, Oriented x3 - Psychiatric Exam Psychiatric exam: Flat Affect - Skin Skin Exam: Dry, Intact, Normal Color, Warm Results - Vital Signs Recent Vital Signs: Last Vital Signs Temp 98.1 F 02/16/19 20:29 Pulse 96 H 02/17/19 01:32 Resp 18 02/17/19 01:32 BP 141/66 02/17/19 01:32 Pulse Ox 98 02/17/19 01:32 - Labs Result Diagrams: 02/16/19 21:34 02/16/19 21:34 Labs: Laboratory Results - last 24 hr 02/16/19 02/16/19 02/16/19 21:34 21:34 21:34 WBC 13.5 H RBC 4.70 Hgb 14.9 Hct 42.7 MCV 90.9 MCH 31.7 MCHC 34.9 RDW 13.7 Plt Count 292 MPV 9.0 Neut % (Auto) 88.3 H Lymph % (Auto) 6.7 L Amelia % (Auto) 4.1 Eos % (Auto) 0.7 L Baso % (Auto) 0.2 Lymph # (Auto) 0.9 L [place] # (Auto) 0.6 Eos # (Auto) 0.1 Baso # (Auto) 0.03 Absolute Neuts (auto) 11.96 H Sodium 137 Potassium 4.2 Chloride 100 Carbon Dioxide 24 Anion Gap 17 BUN 14 Creatinine 1.1 Est GFR ( Amer) > 60 Est GFR (Non-Af Amer) > 60 Random Glucose 105 Calcium 10.0 Total Bilirubin 0.7 AST 50 ALT 31 Alkaline Phosphatase 144 H D Total Creatine Kinase 1094 H CK-MB (CK-2) 3.9 H CK-MB (CK-2) % Cancelled Total Protein 8.3 Albumin 4.9 H Globulin 3.4 Albumin/Globulin Ratio 1.5 Urine Color Urine Appearance Urine pH Ur Specific [place] Urine Protein Urine Glucose (UA) Urine Ketones Urine Blood Urine Nitrate Urine Bilirubin Urine Urobilinogen Ur Leukocyte Esterase Salicylates < 1 L Urine Opiates Screen Urine Methadone Screen Acetaminophen < 10.0 L Ur Barbiturates Screen Ur Phencyclidine Scrn Ur Amphetamines Screen U Benzodiazepines Scrn U Oth Cocaine Metabols U Cannabinoids Screen Alcohol, Quantitative 02/16/19 02/16/19 02/16/19 21:34 22:48 22:48 WBC RBC Hgb Hct MCV MCH MCHC RDW Plt Count MPV Neut % (Auto) Lymph % (Auto) Am[place] % (Auto) Eos % (Auto) Baso % (Auto) Lymph # (Auto) [place] # (Auto) Eos # (Auto) Baso # (Auto) Absolute Neuts (auto) Sodium Potassium Chloride Carbon Dioxide Anion Gap BUN Creatinine Est GFR ( Amer) Est GFR (Non-Af Amer) Random Glucose Calcium Total Bilirubin AST ALT Alkaline Phosphatase Total Creatine Kinase CK-MB (CK-2) CK-MB (CK-2) % Total Protein Albumin Globulin Albumin/Globulin Ratio Urine Color Yellow Urine Appearance Clear Urine pH 6.0 Ur Specific [place] 1.010 Urine Protein Negative Urine Glucose (UA) Negative Urine Ketones Negative Urine Blood Negative Urine Nitrate Negative Urine Bilirubin Negative Urine Urobilinogen 0.2 Ur Leukocyte Esterase Negative Salicylates Urine Opiates Screen Negative Urine Methadone Screen Negative Acetaminophen Ur Barbiturates Screen Negative Ur Phencyclidine Scrn Negative Ur Amphetamines Screen Negative U Benzodiazepines Scrn Positive H U Oth Cocaine Metabols Negative U Cannabinoids Screen Positive H Alcohol, Quantitative < 10 Assessment & Plan - Assessment and Plan (Free Text) Assessment: Patient is a 23 year old male, whose past medical history includes anxiety and schizophrenia, presenting with anxiety. Plan: Rhabdomyolysis - Creatine kinase level on admission: 1094 - NS @ 150 mL/hr - Received 2 X 1L boluses in the ED - Continue to monitor CK levels Hx of Anxiety, Schizophrenia - Ativan 1mg IV Q6 PRN - Xanax 1mg PO HS PRN - Psychiatry consulted, Dr. Jesus Tachycardia - EKG: accelerated junctional rhythm at 116 bpm, no ST elevations - UDS: positive for cannabis and benzodiazepines - Follow up repeat EKG Leukocytosis - CXR: No acute findings - Patient is afebrile - Continue to monitor Tobacco abuse - Nicoderm 21mg daily - Counselled on smoking cessation Case discussed with attending, Dr. Catalan. Chidi Dorsey, PGY-1 <Lexy Catalan - Last Filed: 02/17/19 10:50> Results - Vital Signs Recent Vital Signs: Last Vital Signs Temp 97.9 F 02/17/19 06:00 Pulse 83 02/17/19 06:00 Resp 16 02/17/19 06:00 BP 118/72 02/17/19 06:00 Pulse Ox 98 02/17/19 06:00 - Labs Result Diagrams: 02/17/19 07:10 02/17/19 07:10 Labs: Laboratory Results - last 24 hr 02/16/19 02/16/19 02/16/19 21:34 21:34 21:34 WBC 13.5 H RBC 4.70 Hgb 14.9 Hct 42.7 MCV 90.9 MCH 31.7 MCHC 34.9 RDW 13.7 Plt Count 292 MPV 9.0 Neut % (Auto) 88.3 H Lymph % (Auto) 6.7 L [place] % (Auto) 4.1 Eos % (Auto) 0.7 L Baso % (Auto) 0.2 Lymph # (Auto) 0.9 L [place] # (Auto) 0.6 Eos # (Auto) 0.1 Baso # (Auto) 0.03 Absolute Neuts (auto) 11.96 H Sodium 137 Potassium 4.2 Chloride 100 Carbon Dioxide 24 Anion Gap 17 BUN 14 Creatinine 1.1 Est GFR ( Amer) > 60 Est GFR (Non-Af Amer) > 60 Random Glucose 105 Calcium 10.0 Total Bilirubin 0.7 AST 50 ALT 31 Alkaline Phosphatase 144 H D Total Creatine Kinase 1094 H CK-MB (CK-2) 3.9 H CK-MB (CK-2) % Cancelled Total Protein 8.3 Albumin 4.9 H Globulin 3.4 Albumin/Globulin Ratio 1.5 Urine Color Urine Appearance Urine pH Ur Specific [place] Urine Protein Urine Glucose (UA) Urine Ketones Urine Blood Urine Nitrate Urine Bilirubin Urine Urobilinogen Ur Leukocyte Esterase Salicylates < 1 L Urine Opiates Screen Urine Methadone Screen Acetaminophen < 10.0 L Ur Barbiturates Screen Ur Phencyclidine Scrn Ur Amphetamines Screen U Benzodiazepines Scrn U Oth Cocaine Metabols U Cannabinoids Screen Alcohol, Quantitative 02/16/19 02/16/19 02/16/19 21:34 22:48 22:48 WBC RBC Hgb Hct MCV MCH MCHC RDW Plt Count MPV Neut % (Auto) Lymph % (Auto) [place] % (Auto) Eos % (Auto) Baso % (Auto) Lymph # (Auto) [place] # (Auto) Eos # (Auto) Baso # (Auto) Absolute Neuts (auto) Sodium Potassium Chloride Carbon Dioxide Anion Gap BUN Creatinine Est GFR ( Amer) Est GFR (Non-Af Amer) Random Glucose Calcium Total Bilirubin AST ALT Alkaline Phosphatase Total Creatine Kinase CK-MB (CK-2) CK-MB (CK-2) % Total Protein Albumin Globulin Albumin/Globulin Ratio Urine Color Yellow Urine Appearance Clear Urine pH 6.0 Ur Specific [place] 1.010 Urine Protein Negative Urine Glucose (UA) Negative Urine Ketones Negative Urine Blood Negative Urine Nitrate Negative Urine Bilirubin Negative Urine Urobilinogen 0.2 Ur Leukocyte Esterase Negative Salicylates Urine Opiates Screen Negative Urine Methadone Screen Negative Acetaminophen Ur Barbiturates Screen Negative Ur Phencyclidine Scrn Negative Ur Amphetamines Screen Negative U Benzodiazepines Scrn Positive H U Oth Cocaine Metabols Negative U Cannabinoids Screen Positive H Alcohol, Quantitative < 10 02/17/19 02/17/19 07:10 07:10 WBC 7.8 D RBC 4.47 Hgb 13.7 L Hct 41.0 L MCV 91.7 MCH 30.6 MCHC 33.4 RDW 13.8 Plt Count 264 MPV 9.1 Neut % (Auto) 64.5 Lymph % (Auto) 21.9 L Amelia % (Auto) 8.1 H Eos % (Auto) 5.0 Baso % (Auto) 0.5 Lymph # (Auto) 1.7 Amelia # (Auto) 0.6 Eos # (Auto) 0.4 Baso # (Auto) 0.04 Absolute Neuts (auto) 5.01 Sodium 139 Potassium 3.9 Chloride 105 Carbon Dioxide 24 Anion Gap 15 BUN 10 Creatinine 1.0 Est GFR ( Amer) > 60 Est GFR (Non-Af Amer) > 60 Random Glucose 91 Calcium 9.7 Total Bilirubin 0.9 AST 43 ALT 26 Alkaline Phosphatase 120 Total Creatine Kinase 835 H CK-MB (CK-2) 3.0 CK-MB (CK-2) % Cancelled Total Protein 7.3 Albumin 4.3 Globulin 3.0 Albumin/Globulin Ratio 1.4 Urine Color Urine Appearance Urine pH Ur Specific [place] Urine Protein Urine Glucose (UA) Urine Ketones Urine Blood Urine Nitrate Urine Bilirubin Urine Urobilinogen Ur Leukocyte Esterase Salicylates Urine Opiates Screen Urine Methadone Screen Acetaminophen Ur Barbiturates Screen Ur Phencyclidine Scrn Ur Amphetamines Screen U Benzodiazepines Scrn U Oth Cocaine Metabols U Cannabinoids Screen Alcohol, Quantitative Attending/Attestation - Attestation I have personally seen and examined this patient.: Yes I have fully participated in the care of the patient.: Yes I have reviewed all pertinent clinical information: Yes Notes (Text): 02/17/19 10:46 Patient was seen when he was in the ER in cubicle # 18. Medical record was reviewed. Agree with history, physical examination, assessment and plan. Complained of shaking, anxiety, has PMH of smoking 1PPD x 5 years, anxiety, drug abuse like xanax and weed, schizophrenia, neck pain, CPK was elevated, wbc - 13.5, his psychiatrist is .
[2019-02-17] MEDS ORDERED: Sodium Chloride 0.9% 1,000 ML IV SCH (03:00)
[2019-02-17 04:16] VITALS: BMI 23.7
[2019-02-17 07:34] VITALS: BP 118/72; PULSE 83; RESP 16; TEMP 97.9
[2019-02-17 07:41] LABS: BASO # 0.04 K/mm3 (0.0-2.0); BASO % 0.5 % (0.0-3.0); EOS # 0.4 (0.0-0.7); HEMOGLOBIN 13.7 g/dL (14.0-18.0); LYMPH # 1.7 (1.2-3.4); LYMPH % 21.9 % (22.0-35.0); MEAN CELL VOLUME 91.7 fl (80.0-105.0); MEAN CORPUSCULAR HEMOGLOBIN 30.6 pg (25.0-35.0); MEAN CORPUSCULAR HGB CONC 33.4 g/dl (31.0-37.0); MEAN PLATELET VOLUME 9.1 fl (7.0-11.0); MONO # 0.6 (0.1-0.6); MONO % 8.1 % (1.0-6.0); RBC 4.47 10^6/uL (3.5-6.1); RED CELL DISTRIBUTION WIDTH 13.8 % (11.5-14.5); WHITE BLOOD COUNT 7.8 10^3/uL (4.5-11.0)
[2019-02-17 08:08] LABS: ALB/GLOB RATIO 1.4 (1.1-1.8); ALBUMIN 4.3 g/dL (3.0-4.8); ALT/SGPT 26 U/L (7-56); AST/SGOT 43 U/L (17-59); BLOOD UREA NITROGEN 10 mg/dL (7-21); CALCIUM 9.7 mg/dL (8.4-10.5); GFR NON-AFRICAN AMERICAN > 60
--- NOTE | 2019-02-17 10:42 | CARD ---
APPROVED REPORT Date of service: 02/17/2019 EKG Measurement Heart [id number] <Conclusion> Sinus rhythm with short NE Nonspecific ST abnormality Abnormal ECG
--- NOTE | 2019-02-17 10:49 | CARD ---
APPROVED REPORT Date of service: 02/16/2019 EKG Measurement Heart [id number] <Conclusion> Accelerated Junctional rhythm Nonspecific T wave abnormality Abnormal ECG
--- NOTE | 2019-02-17 12:19 | CP.PCM.DIS ---
<Cheikh Butt - Last Filed: 02/17/19 12:08> Provider - Provider Date of Admission: 02/17/19 01:28 Attending physician: Roxanna Hayward MD Primary care physician: NO FAMILY PROVIDER Consults: 02/17/19 02:51 Physician Consult Routine Comment: Consulting Provider: Allison Jesus Consulting Physician: Allison Jesus Reason for Consult: anxiety, hx of schizophrenia Time Spent in preparation of Discharge (in minutes): 40 Diagnosis - Discharge Diagnosis (1) Anxiety Status: Acute Hospital Course - Lab Results Lab Results: Most Recent Lab Values WBC 7.8 10^3/uL (4.5-11.0) D 02/17/19 07:10 RBC 4.47 10^6/uL (3.5-6.1) 02/17/19 07:10 Hgb 13.7 g/dL (14.0-18.0) L 02/17/19 07:10 Hct 41.0 % (42.0-52.0) L 02/17/19 07:10 MCV 91.7 fl (80.0-105.0) 02/17/19 07:10 MCH 30.6 pg (25.0-35.0) 02/17/19 07:10 MCHC 33.4 g/dl (31.0-37.0) 02/17/19 07:10 RDW 13.8 % (11.5-14.5) 02/17/19 07:10 Plt Count 264 10^3/uL (120.0-450.0) 02/17/19 07:10 MPV 9.1 fl (7.0-11.0) 02/17/19 07:10 Neut % (Auto) 64.5 % (50.0-68.0) 02/17/19 07:10 Lymph % (Auto) 21.9 % (22.0-35.0) L 02/17/19 07:10 [place] % (Auto) 8.1 % (1.0-6.0) H 02/17/19 07:10 Eos % (Auto) 5.0 % (1.5-5.0) 02/17/19 07:10 Baso % (Auto) 0.5 % (0.0-3.0) 02/17/19 07:10 Lymph # (Auto) 1.7 (1.2-3.4) 02/17/19 07:10 [place] # (Auto) 0.6 (0.1-0.6) 02/17/19 07:10 Eos # (Auto) 0.4 (0.0-0.7) 02/17/19 07:10 Baso # (Auto) 0.04 K/mm3 (0.0-2.0) 02/17/19 07:10 Absolute Neuts (auto) 5.01 (1.4-6.5) 02/17/19 07:10 Sodium 139 mmol/L (132-148) 02/17/19 07:10 Potassium 3.9 mmol/L (3.6-5.0) 02/17/19 07:10 Chloride 105 mmol/L (98-107) 02/17/19 07:10 Carbon Dioxide 24 mmol/L (21-33) 02/17/19 07:10 Anion Gap 15 (10-20) 02/17/19 07:10 BUN 10 mg/dL (7-21) 02/17/19 07:10 Creatinine 1.0 mg/dl (0.8-1.5) 02/17/19 07:10 Est GFR ( Amer) > 60 02/17/19 07:10 Est GFR (Non-Af Amer) > 60 02/17/19 07:10 Random Glucose 91 mg/dL (70-110) 02/17/19 07:10 Calcium 9.7 mg/dL (8.4-10.5) 02/17/19 07:10 Total Bilirubin 0.9 mg/dL (0.2-1.3) 02/17/19 07:10 AST 43 U/L (17-59) 02/17/19 07:10 ALT 26 U/L (7-56) 02/17/19 07:10 Alkaline Phosphatase 120 U/L (38-126) 02/17/19 07:10 Total Creatine Kinase 835 U/L (35-230) H 02/17/19 07:10 CK-MB (CK-2) 3.0 ng/mL (0.0-3.6) 02/17/19 07:10 CK-MB (CK-2) % Cancelled 02/16/19 21:34 Total Protein 7.3 g/dL (5.8-8.3) 02/17/19 07:10 Albumin 4.3 g/dL (3.0-4.8) 02/17/19 07:10 Globulin 3.0 gm/dL 02/17/19 07:10 Albumin/Globulin Ratio 1.4 (1.1-1.8) 02/17/19 07:10 Urine Color Yellow (YELLOW) 02/16/19 22:48 Urine Appearance Clear (CLEAR) 02/16/19 22:48 Urine pH 6.0 (4.7-8.0) 02/16/19 22:48 Ur Specific [place] 1.010 (1.005-1.035) 02/16/19 22:48 Urine Protein Negative mg/dL (<30 mg/dL) 02/16/19 22:48 Urine Glucose (UA) Negative mg/dL (NEGATIVE) 02/16/19 22:48 Urine Ketones Negative mg/dL (NEGATIVE) 02/16/19 22:48 Urine Blood Negative (NEGATIVE) 02/16/19 22:48 Urine Nitrate Negative (NEGATIVE) 02/16/19 22:48 Urine Bilirubin Negative (NEGATIVE) 02/16/19 22:48 Urine Urobilinogen 0.2 E.U./dL (<1 E.U./dL) 02/16/19 22:48 Ur Leukocyte Esterase Negative Fani/uL (NEGATIVE) 02/16/19 22:48 Salicylates < 1 mg/dL (2.0-20.0) L 02/16/19 21:34 Urine Opiates Screen Negative (NEGATIVE) 02/16/19 22:48 Urine Methadone Screen Negative (NEGATIVE) 02/16/19 22:48 Acetaminophen < 10.0 ug/ml (10.0-20.0) L 02/16/19 21:34 Ur Barbiturates Screen Negative (NEGATIVE) 02/16/19 22:48 Ur Phencyclidine Scrn Negative (NEGATIVE) 02/16/19 22:48 Ur Amphetamines Screen Negative (NEGATIVE) 02/16/19 22:48 U Benzodiazepines Scrn Positive (NEGATIVE) H 02/16/19 22:48 U Oth Cocaine Metabols Negative (NEGATIVE) 02/16/19 22:48 U Cannabinoids Screen Positive (NEGATIVE) H 02/16/19 22:48 Alcohol, Quantitative < 10 mg/dL (0-10) 02/16/19 21:34 - Hospital Course Hospital Course: Patient is a 23 year old male with a past medical history of anxiety and schizophrenia, presented with anxiety. He stated that he was feeling very anxious and took Xanax without much relief. He admitted to having anxiety attacks before but not as severe. Patient admits to marijuana earlier in the day. In the ED, it was found that his creatine kinase levels were elevated. Patient states that he works out vigorously last week and felt that his body is sore. Patient was admitted for anxiety and possible rhabdomyolysis. Despite having an elevated CK, patient did not presently clinically with rhabdomyolysis nor did he have renal injury. Patient was advised to maintain adequate hydration and to rest/avoid working out for the next few days. Patient was evaluated by psychiatry, who recommended Cogentin, Zyprexa, and Xanax. Psych cleared patient for discharge and also recommended outpatient follow up. Patient has an appointment today with Dr. Stoner, psychiatry, at 2 pm. As patient is hemodynamically stable, he was discharged to follow up with psychiatry and his PMD. Discharge Exam - Head Exam Head Exam: ATRAUMATIC, NORMAL INSPECTION, NORMOCEPHALIC - Eye Exam Eye Exam: Normal appearance Pupil Exam: NORMAL ACCOMODATION - Neck Exam Neck exam: Normal Inspection - Respiratory Exam Respiratory Exam: Clear to PA & Lateral. absent: Rales, Rhonchi, Wheezes - Cardiovascular Exam Cardiovascular Exam: REGULAR RHYTHM, RRR, +S1, +S2. absent: Diastolic murmur, Gallop, Rubs, Systolic Murmur - GI/Abdominal Exam GI & Abdominal Exam: Soft. absent: Distended, Guarding, Rebound, Tenderness - Extremities Exam Extremities exam: normal inspection - Neurological Exam Neurological exam: Alert, CN II-XII Intact, Oriented x3 - Psychiatric Exam Psychiatric exam: Flat Affect - Skin Additional comments: abrasions on left hand Discharge Plan - Discharge Medications Prescriptions: ALPRAZolam [Xanax] 1 mg PO HS #5 tab Benztropine [Benztropine Mesylate] 1 mg PO HS #5 tab Olanzapine [Zyprexa] 5 mg PO HS #5 tablet - Follow Up Plan Condition: FAIR Disposition: HOME/ ROUTINE Instructions: Anxiety, Adult (DC), Rhabdomyolysis (DC) Additional Instructions: - Please follow up with your Primary Care Doctor within 3-4 days of discharge. - Please follow up with your Psychiatrist (Dr. Stoner) today as scheduled. - You are being given new prescriptions. Please take as prescribed: - Zyprexa 5mg one tablet at night - Cogentin 1mg one tablet at night - Xanax 1mg one tablet at night - Please return to the nearest emergency department if your symptoms worsen or reoccur. Referrals: FAMILY PROVIDER,NO [Primary Care Provider] - <Roxanna Hayward - Last Filed: 02/17/19 13:36> Provider - Provider Date of Admission: 02/17/19 01:28 Attending physician: Roxanna Hayward MD Primary care physician: NO FAMILY PROVIDER Consults: 02/17/19 02:51 Physician Consult Routine Comment: Consulting Provider: Allison Jesus Consulting Physician: Allison Jesus Reason for Consult: anxiety, hx of schizophrenia Hospital Course - Lab Results Lab Results: Most Recent Lab Values WBC 7.8 10^3/uL (4.5-11.0) D 02/17/19 07:10 RBC 4.47 10^6/uL (3.5-6.1) 02/17/19 07:10 Hgb 13.7 g/dL (14.0-18.0) L 02/17/19 07:10 Hct 41.0 % (42.0-52.0) L 02/17/19 07:10 MCV 91.7 fl (80.0-105.0) 02/17/19 07:10 MCH 30.6 pg (25.0-35.0) 02/17/19 07:10 MCHC 33.4 g/dl (31.0-37.0) 02/17/19 07:10 RDW 13.8 % (11.5-14.5) 02/17/19 07:10 Plt Count 264 10^3/uL (120.0-450.0) 02/17/19 07:10 MPV 9.1 fl (7.0-11.0) 02/17/19 07:10 Neut % (Auto) 64.5 % (50.0-68.0) 02/17/19 07:10 Lymph % (Auto) 21.9 % (22.0-35.0) L 02/17/19 07:10 [place] % (Auto) 8.1 % (1.0-6.0) H 02/17/19 07:10 Eos % (Auto) 5.0 % (1.5-5.0) 02/17/19 07:10 Baso % (Auto) 0.5 % (0.0-3.0) 02/17/19 07:10 Lymph # (Auto) 1.7 (1.2-3.4) 02/17/19 07:10 [place] # (Auto) 0.6 (0.1-0.6) 02/17/19 07:10 Eos # (Auto) 0.4 (0.0-0.7) 02/17/19 07:10 Baso # (Auto) 0.04 K/mm3 (0.0-2.0) 02/17/19 07:10 Absolute Neuts (auto) 5.01 (1.4-6.5) 02/17/19 07:10 Sodium 139 mmol/L (132-148) 02/17/19 07:10 Potassium 3.9 mmol/L (3.6-5.0) 02/17/19 07:10 Chloride 105 mmol/L (98-107) 02/17/19 07:10 Carbon Dioxide 24 mmol/L (21-33) 02/17/19 07:10 Anion Gap 15 (10-20) 02/17/19 07:10 BUN 10 mg/dL (7-21) 02/17/19 07:10 Creatinine 1.0 mg/dl (0.8-1.5) 02/17/19 07:10 Est GFR ( Amer) > 60 02/17/19 07:10 Est GFR (Non-Af Amer) > 60 02/17/19 07:10 Random Glucose 91 mg/dL (70-110) 02/17/19 07:10 Calcium 9.7 mg/dL (8.4-10.5) 02/17/19 07:10 Total Bilirubin 0.9 mg/dL (0.2-1.3) 02/17/19 07:10 AST 43 U/L (17-59) 02/17/19 07:10 ALT 26 U/L (7-56) 02/17/19 07:10 Alkaline Phosphatase 120 U/L (38-126) 02/17/19 07:10 Total Creatine Kinase 835 U/L (35-230) H 02/17/19 07:10 CK-MB (CK-2) 3.0 ng/mL (0.0-3.6) 02/17/19 07:10 CK-MB (CK-2) % Cancelled 02/16/19 21:34 Total Protein 7.3 g/dL (5.8-8.3) 02/17/19 07:10 Albumin 4.3 g/dL (3.0-4.8) 02/17/19 07:10 Globulin 3.0 gm/dL 02/17/19 07:10 Albumin/Globulin Ratio 1.4 (1.1-1.8) 02/17/19 07:10 Urine Color Yellow (YELLOW) 02/16/19 22:48 Urine Appearance Clear (CLEAR) 02/16/19 22:48 Urine pH 6.0 (4.7-8.0) 02/16/19 22:48 Ur Specific [place] 1.010 (1.005-1.035) 02/16/19 22:48 Urine Protein Negative mg/dL (<30 mg/dL) 02/16/19 22:48 Urine Glucose (UA) Negative mg/dL (NEGATIVE) 02/16/19 22:48 Urine Ketones Negative mg/dL (NEGATIVE) 02/16/19 22:48 Urine Blood Negative (NEGATIVE) 02/16/19 22:48 Urine Nitrate Negative (NEGATIVE) 02/16/19 22:48 Urine Bilirubin Negative (NEGATIVE) 02/16/19 22:48 Urine Urobilinogen 0.2 E.U./dL (<1 E.U./dL) 02/16/19 22:48 Ur Leukocyte Esterase Negative Fani/uL (NEGATIVE) 02/16/19 22:48 Salicylates < 1 mg/dL (2.0-20.0) L 02/16/19 21:34 Urine Opiates Screen Negative (NEGATIVE) 02/16/19 22:48 Urine Methadone Screen Negative (NEGATIVE) 02/16/19 22:48 Acetaminophen < 10.0 ug/ml (10.0-20.0) L 02/16/19 21:34 Ur Barbiturates Screen Negative (NEGATIVE) 02/16/19 22:48 Ur Phencyclidine Scrn Negative (NEGATIVE) 02/16/19 22:48 Ur Amphetamines Screen Negative (NEGATIVE) 02/16/19 22:48 U Benzodiazepines Scrn Positive (NEGATIVE) H 02/16/19 22:48 U Oth Cocaine Metabols Negative (NEGATIVE) 02/16/19 22:48 U Cannabinoids Screen Positive (NEGATIVE) H 02/16/19 22:48 Alcohol, Quantitative < 10 mg/dL (0-10) 02/16/19 21:34 Attending/Attestation - Attestation I have personally seen and examined this patient.: Yes I have fully participated in the care of the patient.: Yes I have reviewed all pertinent clinical information, including history, physical exam and plan: Yes Notes (Text): 02/17/19 13:18 23 year old male with past medical history of anxiety and schizophrenia who presented with anxiety and panic attack yesterday. He states he had recent family issues at home which exacerbated his anxiety. On admission he was found to have elevated CK and was admitted for rhabdomyolysis. He admits to recent vigourous exercise. He was started on iv fluids. Following day his CK improved. He was seen by psychiatrist who adjusted his xanax and also recommended cogentin and zyprexa. Patient and mother at bedside wish to be discharged today to follow up with his psychiatrist appointment this afternoon. Patient is discharged home to follow up with pmd. Xanax dose was adjusted as per psychiatrist. Follow up with psychiatrist. Counselled on marijuana cessation. Advised to maintain adequate hydration and avoid vigorous exercise. Roxanna Hayward MD Hospitalist.
--- NOTE | 2019-02-17 12:28 | RAD ---
Date of service: 02/16/2019 HISTORY: pes eval COMPARISON: 12/03/2018. FINDINGS: LUNGS: No active pulmonary disease. PLEURA: No significant pleural effusion identified, no pneumothorax apparent. CARDIOVASCULAR: No atherosclerotic calcification present Normal. OSSEOUS STRUCTURES: No significant abnormalities. VISUALIZED UPPER ABDOMEN: Normal. OTHER FINDINGS: None. IMPRESSION: No active disease. No significant interval change compared to the prior examination(s).
--- NOTE | 2019-02-17 18:34 | CON ---
DATE: 02/17/2019 HISTORY OF PRESENT ILLNESS: The patient is a single 23-year-old male with a history of depression and anxiety as well as psychotic symptoms, likely diagnosis of schizophrenia, two prior psychiatric hospitalizations at [facility] in 08/2017 as well as 05/2018, no current outpatient treatment or compliance with any psychiatric medications at this time, and no history of suicide attempts, who was admitted to the medical floor after he presenting with acute anxiety and admitted with elevated CK levels. Psychiatry consulted due to the patient's psychiatric history. I met with the patient at bedside this morning along with medical student. The patient recognizes me from his prior encounters and he is alert and oriented to month, year, location and circumstances. The patient presently denies having any major psychiatric complaints except for anxiety. Denies any hallucinations, paranoia. Delusions were not elicited either. There have been no major behavioral issues on the medical floor. The patient's responses are coherent and consistent with repeated questioning and the patient does not appear to show any psychotic process at this time. The affect is constricted and a little odd, but not overtly bizarre and he does not appear to be responding to internal stimuli. The patient denies any drug or alcohol use prior to admission except for occasional marijuana use. Presently, the patient defers on any further psychiatric care; however, this provider indicated that should he present on the medical floor, I will visit with him to ensure that he can remain stable due to his significant history of psychosis in the past. His insight and judgment are fair though. PSYCHIATRIC HISTORY: The patient has two prior psychiatric hospitalization at [facility] in 08/2017 and 05/2018. DISCHARGE MEDICATIONS: From his 05/2018 admission include; Xanax 1 mg p.o. daily, Cogentin 1 mg p.o. b.i.d., Zyprexa 10 mg a.m. and at bedtime and Nicoderm. The patient not currently on any outpatient psychiatric treatment though admits to intake at [facility] in 08/2018. The patient has history of hearing voices but denies thoughts of wanting to hurt himself or others and a history of being uninhibited behavior erratically and disorganized in public with then employed intervention. The patient denies any history of suicide attempts. SOCIAL HISTORY: The patient was born and raised in [place]. He is single and has no children. He elaborates he is a freshman and sophomore in senior high school. He lives with his mother. He does occasional marijuana. Denies any other drug use. The patient has history of alcohol dependency associated with withdrawal seizures and DTs; however, denies any recent use. This history was mainly associated with his 08/2017 admission. CURRENT PSYCHIATRIC MEDICATIONS: Include Xanax 1 mg at bedtime. IMPRESSION: Anxiety disorder not otherwise specified, likely panic disorder, likely generalized anxiety disorder and schizophrenia by history as well as cannabis abuse. RECOMMENDATIONS: At this time, we will continue Xanax 1 mg p.r.n. We will restart Zyprexa to ensure the patient does not become psychotic and Cogentin. This psychiatrist will follow up with the patient peripherally. The patient does not meet criteria for involuntary admission at this time and though he does not show any acute psychiatric symptoms consistent with psychosis, he should be provided with referrals for followup with outpatient psychiatric provider that are conveniently located to him. The patient seemed open to these referrals, although not entirely motivated to follow through. Allison Jesus MD
== END 2019-02-17 13:51 | disposition home or self-care (01) ==
LOC: ED 20:09 → ERH 02-17 01:28 → 5RNO 02-17 03:16
PROVIDERS: ADMIT Internal Medicine; ATTEND Internal Medicine
DX: M62.82 Rhabdomyolysis (principal); F41.1 Generalized anxiety disorder; F12.10 Cannabis abuse, uncomplicated; F20.9 Schizophrenia, unspecified; F41.0 Panic disorder [episodic paroxysmal anxiety]; F17.210 Nicotine dependence, cigarettes, uncomplicated
CPT/HCPCS: 36415; 71045; 80053; 81003; 82550; 82553; 85025; 93005; 96361; 96374; 99284; G0378; G0480; J2060; J7030